=== PATIENT | male | born 1950 | race Caucasian/White ===

== ENCOUNTER → 2017-01-01 | Outpatient (CLI) | payer BC ==
[~2017-01-01] MED LIST: ASPCH81X PO
--- NOTE | 2017-01-02 06:05 | PAP/PSG TECHNICIAN REPORT ---
[facility] [address] Therapeutic Assistant Polysomnogram Report Study name: None Report date: 01/02/2017 Study date: 01/01/2017 Referring Physician: Sharmaine Melgar M.D. Name: CLARARICKYGISSELLE CEDRIC RAMIREZ Interpreting Physician: Moon Melgar M.D. Date of : 1950 Therapeutic Assistant: Ángela Mei RPSGT. Sex: Male Age: 66 StudyType: PSG Weight: 200 lbs Height: 66 years, Height 5' 8" Neck Circum:17inches BMI: 30.41 Medications: Lipitor 80mg, Toprol Xl 100mg, Nitrostat 0.4mg, Cozaar 25mg, ASA 81mg Patient History Study started on room air with no ETCO2 monitoring in room #6. 66 yr old male here tonight for a possible split psg He has a history od ASCAD, s/p cleft lip and palate and he is a heavy snorer. His ESS=6/24.Neck circ=17inches. Parameters Monitored NPSG: E1-M2, E2-M1, Fp1-M2, Fp2-M1, F3-M2, F4-M2, F4-M1, C3-M2, C4-M2, C4-M1, O1-M2, O2-M2, O2-M1, T3-M2, T4-M1, P3-M2, P4-M1, CHIN1, CHIN2, HR, EKG, Legs, PFLOW, SNOR, FLOW, CFLOW, Tidal Volume, THOR, ABDO, SpO2, PLTH, CPRESS, ETCO2 Wave, ETCO2, pH Sleep Architecture Sleep Stages Time at Lights Off 10:39:55 PM STAGES Time (min.) TST (%) Time at Lights On 5:48:55 AM Wake 85.5 -- Total Recording Time (TRT) 429.50 min. N1 29.5 9 Total Sleep Period (TSP) 398.0 min. N2 185.5 54 Total Sleep Time (TST) 343.5min. N3 47.0 14 Awake Time 86.0 min. REM 81.5 24 Wake after Sleep Onset 62.0 min. Sleep Efficiency (SE) 80 % Sleep Onset Latency (DEVORAH) 23.5 min. Number of Stage 1 Shifts None Awakenings 26 Stage Changes 101 Number of REM periods 12 REM 81.5 24 REM Latency 63.0 min. NREM 262.0 76 Body Position Analysis Supine Right Left Side Prone Vertical Total Sleep Time (min.) 67.4 284.0 0.0 284.00 42.3 0.0 Total Sleep Time (%) 8% 83% 0% 83 10% N/A% Total Sleep Time REM (min.) 0.0 81.5 0.0 None 0.0 0.0 Total Sleep Time NREM (min.) 26.0 202.5 0.0 None 33.5 0.0 Intermittent Wake (min.) 41.4 35.3 0.0 None 8.8 0.0 Total Sleep Period (%) 11% None None None None None Arousals Myoclonus (PLM) * Events Count Index Events Count Index Spontaneous 12 2 Events Awake (PLMW) 54 37.9 Respiratory 18 3.5 Events Asleep w/ Arousal (PLMA) 15 2.6 PLM 14 3 Events Asleep w/o Arousal (PLMS) 658 114.9 Snoring 13 2 Total Asleep 673 117.6 Total 56 10 Total 727 102 Respiratory Analysis * CA OA MA CH H RERA Total Count 3 5 7 0 25 0 40 Index 0.5 0.9 1.2 0 4.4 0 7.0 Mean Duration 15.6 15.9 17.3 0.00 19.7 0.0 18.5 Longest Duration 17.5 17.9 22.3 0.00 22.3 0.0 58.4 Respiratory Event Summary Total Supine ~Supine Right Left Prone REM NREM Apneas Count 15 13 2 2 N/A 0 1 14 Index 2.6 30 0 0.4 N/A 0 1 3 Hypopneas (4% Desat) Count 25 22 3 3 N/A 0 3 22 Index 4.4 50.8 1 0.6 N/A 0.0 2.2 5.0 Apneas & All Hypopneas Count 40 35 5 5 N/A 0 4 36 Index 7.0 81 1 1 N/A 0 2.9 8.2 Respiratory Events (Scabbler+All Hyp+RERA) Count 40 35 5 5 N/A 0 4 36 Index 7.0 81 1 1.1 N/A 0.0 2.9 8.2 Respiratory Related Arousal Count 18 35 1 1 N/A 0 1 19 Index 3.5 44 0 0 N/A 0 1 4 Snoring Analysis Supine Right Left Prone REM NREM Total Snore duration 20.5 min Snores count 68 917 N/A 12 396 601 997 Snore mean duration 1.2 Sec Snores index 157 194 N/A 21 291.5 137.6 174.1 TST with snoring (%) 6.0% Desaturation Event Summary: Minimum %SpO2 Event Count Mean/Min/Max Duration(sec.) Desaturation Index % Time In Bed > 90 31 20.6 / 9.0 / 60.0 7.6 57.0 86 - 90 23 15.6 / 9.0 / 26.0 7.5 42.9 81 - 85 0 N/A 0.0 0.0 76 - 80 0 N/A 0.0 0.0 71 - 75 0 N/A 0.0 0.0 66 - 70 0 N/A 0.0 0.0 61 - 65 0 N/A 0.0 0.0 56 - 60 0 N/A 0.0 0.0 51 - 55 0 N/A 0.0 0.0 < 50 0 N/A 0.0 0.0 Total REM NREM Awake <50% 0.0 min. 0.0 min. 0.0 min. 0.0 min. 51 - 60% 0.0 min. 0.0 min. 0.0 min. 0.0 min. 61 - 70% 0.0 min. 0.0 min. 0.0 min. 0.0 min. 71 - 80% 0.0 min. 0.0 min. 0.0 min. 0.0 min. 81 - 90% 184.1 min. 48.8 min. 108.2 min. 27.2 min. 91 - 100% 244.3 min. 32.7 min. 153.7 min. 57.8 min. Average 91 90 91 91 Minimum SpO2 84 87 84 86 Desaturation Event Index 4.5 1.5 5.7 3.5 # Desat. Events below 89% 28 0 25 3 Time(%) with Saturation below 89% 5.4 2.0 3.0 0.4 Time(min.) with Saturation below 89% 23.3 8.4 13.0 1.9 Time (mins) REM (mins) NREM (mins) % of TST SpO2 Below 90% 27 2 N25 21.8 SpO2 Below 88% 6 0 0 1 Heart Rate Analysis Min (bpm) Max (bpm) Average (bpm) Awake 57 92 66 NREM 60 77 67 REM 65 77 70 Overall 60 77 68 Supplemental O2 Values Minimum O2 level: None Value Start Time End Time Therapeutic Assistant Comments Mr. Patton slept in the right, supine and prone positions. No cardiac arrhythmia noted. PLM's noted. No bruxism noted. Snoring was noted and scored as a 2 on a scale of 1 through 5. (0=no snoring, 5=snoring loud enough to be heard through a closed door or down the [address] way) He did not use the restroom during the night. He stated that he slept a little worse than when at home. The final report will be interpreted and signed by a sleep physician. The completed physician report will then be placed in the patient medical record. Therapy (cm H2O) 0 TIB (min.) 429.0 TST (min.) 343.5 Sleep Onset (min.) 23.5 REM Onset From Sleep (min.) 63.0 Sleep Efficiency % 80 Wakefulness (%) 20 Wakefulness (min.) 86.0 NREM 1 (%) 9 NREM 1 (min.) 29.5 NREM 2 (%) 54 NREM 2 (min.) 185.5 NREM 3 (%) 14 NREM 3 (min.) 47.0 REM (%) 24 REM (min.) 81.5 # Arousals 56 Arousal Index 10 # Snore 997 Snore Index 174.1 AHI 7.0 AHI Supine 81 AHI Non-Supine 1 NREM AHI 8.2 REM AHI 2.9 RDI 7.0 # Obstructive Apnea 5 # Central Apnea 3 # Mixed Apnea 7 # Hypopneas 25 RERAs 0 Total Respiratory Events 44 Time Below SpO2 89% (min.) 21.4 Mean NREM SpO2 (%) 91 Mean REM SpO2 (%) 90 Mean Sleep SpO2 (%) 91 Min NREM SpO2 (%) 84 Min REM SpO2 (%) 87 Position Supine (min.) 67.4 Position Non-supine (min.) 317.5 LM Index Sleep 117.6 LM Index NREM 141.5 LM Index REM 40.5 Mean Heart Rate (bpm) 68 Min Heart Rate (bpm) 60
--- NOTE | 2017-01-13 10:27 | POLYSOMNOGRAPH REPORT ---
REFERRING PERSON: Dr. Pepe Melgar. BAR CATCHER: Ángela Mei. Mr. Patton is a 66-year-old male, who is sent for a possible split night sleep study. He has a history of atherosclerotic heart disease and previous cleft lip and palate repair. He is a heavy snorer. His [place] sleepiness scale score on the evening of this study is 6. BMI is 30.41. Following the technical and digital specifications of the [place] [employer] (AASM) a standard diagnostic polysomnogram was performed monitoring EEG, EOG, EMG (chin and leg deviations), oxygen saturation, body position, digital video, respiratory effort and airflow. The sleep Stage and event scoring was based on the AASM Manual for the Scoring of Sleep and Associated Events 2007 edition. Apneas are defined as a drop in the peak thermal sensor excursion by >90% of baseline for at least 10 seconds. Hypopneas were scored using the 4% oxygen desaturation rule ([employer]A-[employer]) and a decrease in the nasal pressure excursions by >30% of baseline for at least 10 seconds. Respiratory effort-related arousal (RERA's) is defined as a sequence of breaths lasting at least 10 seconds characterized by increasing respiratory effort or flattening of the nasal pressure waveform leading to an arousal from sleep when the sequence of breaths does not meet criteria for an apnea or hypopnea. Apnea Hypopnea index (AHI) is defined as the number of apneas and hypopneas occurring in an hour of sleep. Respiratory disturbance index (RDI) is defined as the number of apneas, hypopneas, and RERA's occurring in an hour of sleep. Mr. Patton's total sleep period time was 398 minutes. Total sleep time was 343.5 minutes. Sleep efficiency was 80%. Latency to sleep onset was 23.5 minutes with wake after sleep onset of 62 minutes. Total non-REM sleep time was 262 minutes. He spent 9% of that time in N1 sleep, 54% in N2 sleep and 14% in N3 sleep. REM latency was 63 minutes. Total REM sleep time was 81.5 minutes or 24% of total sleep time. There were 56 cortical arousals from sleep. Twelve of these arousals were spontaneous, 18 were due to respiratory events, 14 were due to periodic limb movements of sleep and 13 were due to snoring. 673 periodic limb movements of sleep were noted. Limb movement index was 117.6. Limb movement with arousal index, however, was 2.6. There were 3 central, 5 obstructive, and 7 mixed apneas on this test. There were 25 hypopnea and no RERA. Apnea-hypopnea index was 7, supine AHI was 81, non-supine AHI was 1. This was very positional. 997 snoring events were recorded. Total sleep time with snoring was 6%. Mean saturation was 91% with desaturations to 84%. Saturations were less than 89% for 23.3 minutes of recorded time. There was no cardiac ectopy noted on this study. Heart rates ranged from a low of 60 beats per minute to a high of 77 beats per minute. IMPRESSION AND PLAN: A 66-year-old male with previous cleft lip and palate repair, and a history of atherosclerotic heart disease with mild sleep apnea that is very positional on this test. This is associated with nocturnal hypoxemia. 1. This patient may benefit from positive airway pressure therapy. He could be started on auto titrating CPAP with pressures of 5-15 cm. A download reviewed from his machine in 1 month, both to check compliance as well as AHI and further pressure adjustments can occur at that time. Once on optimal pressure, an overnight oximetry could be performed to ensure hypoxemia resolves with CPAP therapy alone. 2. Alternatively, this patient could try positional therapy as when he is on his back, he had a number of respiratory events, but when he slept non-supine, he did not.
== END | disposition home or self-care (01) ==
LOC: C.NEUR 20:00
PROVIDERS: ATTEND Family Medicine
DX: R06.83 Snoring (principal); G47.10 Hypersomnia, unspecified

== ENCOUNTER → 2017-11-14 | Day surgery (SDC) | payer BC ==
[~2017-11-14] VITALS: Ht 170.2 cm; Wt 89.1 kg
[~2017-11-14] MED LIST changes: +ATOR-26 PO; +CZR25 PO; +LIDOCAINE HCL 2% 2 ML VIAL (20MG/ML) ONE; +METO100T44 PO; +NTRGSL/4 UT; +PROPOFOL IV EMULSION 10 MG/ML 20 ML VIAL IV ONE; +SODIUM CHLORIDE 0.9% 500ML 500 ML IV ONE
[2017-11-14 08:07] VITALS: Ht 170.2 cm; Wt 89.1 kg
--- NOTE | 2017-11-14 08:51 | Endo History and Physical ---
History & Physical Date of Service: Nov 14, 2017. Chief Complaint: HX OF POLYPS Referring Physician: DR. AYOUB History of Present Illness Patient with hx of colon polyps. 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) Hx Thoracic Surgery: No Hx Orthopedic: No Hx Urinary Tract Surgery: No Family History None Social History Smoking Status: Former Smoker Hx Substance Use: No Hx Alcohol Use: Yes (2 BEERS/DAILY) Allergies Coded Allergies: Lisinopril (Verified Adverse Reaction, Unknown, DRY COUGH, 11/06/17) Current Medications Reported Home Medications Medications Dose Route/Sig Max Daily Dose Days Date Category Nitrostat (Nitroglycerin) 0.4 Mg Tab 0.4 Mg UT PRN 11/06/17 Reported Losartan Potassium 25 Mg Tab 25 Mg PO QAM 11/06/17 Reported Lipitor (Atorvastatin Calcium) 80 Mg Tab 80 Mg PO QAM 11/06/17 Reported Toprol-Xl (Metoprolol Succinate) 100 Mg Tabcr 100 Mg PO QAM 11/06/17 Reported Aspirin Chewable (Aspirin) 81 Mg Chew 81 Mg PO QAM 04/26/12 Reported Vital Signs Weight (Kilograms): 89.09 Height (Feet): 5 Height (Inches): 7 Date Time Temp Pulse Resp B/P (MAP) Pulse Ox O2 Delivery O2 Flow Rate FiO2 11/14/17 08:04 36.7 75 20 136/75 (95) 97 Room Air Physical Exam General Appearance: no apparent distress Respiratory/Chest: Auscultation: breath sounds normal Cardiovascular: Heart Auscultation: RRR Abdomen: Inspection & Palpation: soft Liver: non-tender Assessment and Plan stable for colonoscopy
--- NOTE | 2017-11-14 09:27 | Discharge Instructions ---
Endoscopy Patient Instructions Date / Procedure(s) Performed Nov 14, 2017. Colonoscopy Allergy Information Coded Allergies: Lisinopril (Verified Adverse Reaction, Unknown, DRY COUGH, 11/06/17) Discharge Date / Findings Nov 14, 2017. small colon polyps removed Provider Instructions Activity Restrictions - No exercising or heavy lifting for 24 hours. - Do not drink alcohol the day of the procedure. - Do not drive a car or operate machinery until the day after the procedure. - Do not make any important decisions or sign important papers in 24 hours after the procedure. Following Day: - Return to full activity which may include returning to work/school. Diet Start your diet with liquids and light foods (jello, soup, juice, toast). Then eat your usual diet if not nauseated. Treatment For Common After Affects For mild abdominal pain, bloating, or excessive gas: - Rest - Eat lightly - Lie on right side Follow-Up Information Follow-up with DR. AYOUB as scheduled Anesthesia Information What You Should Know You have had a procedure that required some medicine to reduce anxiety and discomfort. This treatment is called moderate sedation. After receiving the treatment, you may be sleepy, but you will be able to breathe on your own. The effects of the treatment may last for several hours. Follow these instructions along with Activity/Diet recommendations noted above: * Do NOT do anything where dizziness or clumsiness would be dangerous. * Rest quietly at home today, then you can be up and about tomorrow. * Have a responsible person stay with you the rest of today. * You may have had an I.V. today. If so, you may take the dressing off later today. Recommendations Call your doctor if: * Trouble breathing * Continuous vomiting for more than 24 hours * Temperature above 101 degrees * Severe abdominal pain or bloating * Pain not relieved by pain medicine ordered * There is increased drainage or redness from any incision * A large amount of rectal bleeding greater than 2-3 tablespoons. (If you had a polyp/s removed or have hemorrhoids, a small amount of blood - from the rectum is to be expected.) * You have any unanswered questions or concerns. IN THE EVENT OF A SERIOUS EMERGENCY, GO TO THE NEAREST EMERGENCY ROOM Your discharge instructions were prepared by provider Carlos Marcelino. Patient Instructions Signature Page Kale Patton Patient (or Guardian) Signature/Date: I have read and understand the instructions given to me by my caregivers. Caregiver/RN/Doctor Signature/Date: The above-named patient and/or guardian has received patient instructions on this date. + Original Patient Signature Page (only) stays with chart. Please make copy for patient.
--- NOTE | 2017-11-14 09:47 | Anesthesiology Progress Note ---
Anesthesia Post Op Note Date & Time Nov 14, 2017 at 09:47 Vital Signs Pain Intensity: 0 Vital Signs Past 12 Hours Date Time Temp Pulse Resp B/P (MAP) Pulse Ox O2 Delivery O2 Flow Rate FiO2 11/14/17 09:36 66 18 124/68 (86) 98 Room Air 11/14/17 09:21 65 16 96/57 (70) 96 Room Air 11/14/17 08:04 36.7 75 20 136/75 (95) 97 Room Air Notes Mental Status: alert / awake / arousable, participated in evaluation Pt Amnestic to Procedure: Yes Nausea / Vomiting: adequately controlled Pain: adequately controlled Airway Patency, RR, SpO2: stable & adequate BP & HR: stable & adequate Hydration State: stable & adequate Anesthetic Complications: no major complications apparent
[2017-11-14 09:51] VITALS: BP 126/75; PULSE 62; O2SAT 97
--- NOTE | 2017-11-14 10:29 | GI REPORT ---
Procedure Date: 11/14/2017 8:18 AM Procedure: Colonoscopy Indications: Personal history of colonic polyps Medicines: See the Anesthesia note for documentation of the administered medications Complications: No immediate complications. Estimated Blood Loss: Estimated blood loss was minimal. Procedure: Pre-Anesthesia Assessment: - Prior to the procedure, a History and Physical was performed, and patient medications, allergies and sensitivities were reviewed. The patient's tolerance of previous anesthesia was reviewed. - The risks and benefits of the procedure and the sedation options and risks were discussed with the patient. All questions were answered and informed consent was obtained. - Patient identification and proposed procedure were verified prior to the procedure by the physician and the nurse. The procedure was verified in the pre-procedure area. - Pre-procedure physical examination revealed no contraindications to sedation. - After reviewing the risks and benefits, the patient was deemed in satisfactory condition to undergo the procedure. After I obtained informed consent, the scope was passed under direct vision. Throughout the procedure, the patient's blood pressure, pulse, and oxygen saturations were monitored continuously. The scope was introduced through the anus and advanced to the terminal ileum, with identification of the appendiceal orifice and IC valve. The colonoscopy was performed without difficulty. The patient tolerated the procedure well. The quality of the bowel preparation was fair. Findings: The perianal and digital rectal examinations were normal. The terminal ileum appeared normal. A 5 mm polyp was found at 70 cm proximal to the anus. The polyp was semi-sessile. The polyp was removed with a cold snare. Resection and retrieval were complete. Verification of patient identification for the specimen was done by the physician and nurse using the patient's name and medical record number. Estimated blood loss was minimal. Two sessile polyps were found at 20 cm proximal to the anus. The polyps were small in size. These polyps were removed with a cold snare. Resection and retrieval were complete. Verification of patient identification for the specimen was done by the physician and nurse using the patient's name and medical record number. Estimated blood loss was minimal. Multiple small-mouthed diverticula were found in the sigmoid colon. No additional abnormalities were found on retroflexion. Impression: - Preparation of the colon was fair. - The examined portion of the ileum was normal. - One 5 mm polyp at 70 cm proximal to the anus, removed with a cold snare. Resected and retrieved. - Two small polyps at 20 cm proximal to the anus, removed with a cold snare. Resected and retrieved. - Diverticulosis in the sigmoid colon. Recommendation: - Await pathology results. - Discharge patient to home. Carlos Marcelino M.D. Carlos Marcelino MD 11/14/2017 10:28:36 AM This report has been signed electronically. Note Initiated On: 11/14/2017 8:18 AM I attest to the content of the Intraoperative Record and orders documented therein, exceptions below
== END | disposition home or self-care (01) ==
LOC: C.GI 07:41
PROVIDERS: ATTEND Internal Medicine Gastroenterology
DX: Z86.010 Personal history of colon polyps (principal); D12.6 Benign neoplasm of colon, unspecified; K63.5 Polyp of colon; K57.30 Diverticulosis of large intestine without perforation or abscess without bleeding; I25.10 Atherosclerotic heart disease of native coronary artery without angina pectoris; I10 Essential (primary) hypertension; Z95.1 Presence of aortocoronary bypass graft; Z98.890 Other specified postprocedural states; Z85.828 Personal history of other malignant neoplasm of skin; Z88.8 Allergy status to other drugs, medicaments and biological substances; Z79.82 Long term (current) use of aspirin; Z79.899 Other long term (current) drug therapy

== ENCOUNTER 2022-11-06 07:38 | Observation (INO) ==
[2022-11-06] MEDS ORDERED: NITROGLYCERIN SL 0.4 MG/TAB TAB SL STA ×2 (07:54→09:00)
[2022-11-06] MEDS ORDERED: ASPIRIN CHEW 324 MG PO STA (07:54)
--- NOTE | 2022-11-06 08:00 | Emergency Department Note ---
Impression & Plan Chest pain, Leukocytosis, Hypoxia ED Provider Note NAME: CEDRIC FUNES AGE: 72 SEX: M : 1950 ARRIVES VIA: Walk-In INFORMANT: Patient ED PROVIDER(S): Neeraj Mtz DO CHIEF COMPLAINT: chest pain HPI: Patient is a 72-year-old male who presents the ER for chest pain. He describes it as a dull ache on his left chest. Feels like his previous heart attack where he needed a bypass x2. He does have a history of hypertension and hyperlipidemia. Denies any belly pain, nausea, vomiting, or diarrhea. He did take some nitro and the pain got significantly better. He also took 81 mg of aspirin. Notes that some very faint nail his pain. Denies any arm or jaw pain. No other exacerbating or remitting factors. He has not had any stress test or cardiac cath for at least 10 years. PAST MEDICAL HISTORY:See Below PAST SURGICAL HISTORY:See Below FAMILY HISTORY:See Below SOCIAL HISTORY:See Below HOME MEDICATIONS:See Below ALLERGIES:See Below VITALS:See Below PHYSICAL EXAMINATION: GENERAL: Sitting up in bed, alert, well appearing, well nourished, no distress, non-toxic EYE EXAM: normal conjunctiva. OROPHARYNX: no exudate, no erythema, lips, buccal mucosa, and tongue normal and mucous membranes are moist NECK: supple, no nuchal rigidity, no adenopathy, non-tender LUNGS: Clear to auscultation. Normal chest wall mechanics HEART: no murmurs, S1 normal and S2 normal ABDOMEN: abdomen soft, non-tender, normo-active bowel sounds, no masses, no rebound or guarding. UPPER EXTREMITIES: upper extremities are grossly normal. LOWER EXTREMITIES: No pitting edema. Calf cervical bilateral NEURO EXAM: Normal sensorium, cranial nerves II-XII grossly intact, normal speech, no gross weakness of arms, no gross weakness of legs. MEDICAL DECISION MAKING: Patient is a 72-year-old male who presents ER for above-stated complaint. External records were reviewed and showed CAD status post CABG with MCCORMACK to LAD and SVG to PDA performed April 2012. IV was established blood work was obtained. Labs show leukocytosis 16,000. No significant anemia. BMP with LFTs bilirubin was remarkable for T. bili 1.5. Lipase and Pro-Aubrey were normal. COVID-negative. Patient was intermittently hypoxic with a pulse ox dipping down to 88. With this in the chest pain CT angio was obtained and showed no PEs but patchy nonspecific pneumonitis. Patient was updated bedside discussed with the hospitalist admitted for further work-up. Pain did improve significantly with nitro. He was given aspirin. No significant change in EKG. Triage Nursing notes reviewed. Limited review of prior medical records performed Vital Signs: reviewed and remarkable for HTN Differential diagnosis: Cardiac ischemia, aortic dissection, pulmonary embolism, pneumothorax, pneumonia, pericarditis, myocarditis, esophageal rupture, GERD, cholecystitis, pancreatitis, musculoskeletal, as well as other pathologies. ER treatment provided: See below Diagnostics interpreted by me include EKG and cardiac monitoring as listed below: -Cardiac Monitoring: An order was placed for continuous cardiac monitoring. The monitor shows a rate of 60 with sinus rhythm. -ECG: Sinus rhythm rate of 60 Normal axis No PVCs T wave inversion and ST depressions in V2 and V3 QTc 398 -Laboratory studies:Interpreted by me as stated above in MDM and shown below. Imaging studies: Xrays: As interpreted by me: Portable AP upright 1 view of the chest shows no pneumonia CTs show: none Consultation(s): Discussed with the hospitalist for further evaluation management and treatment Procedures:none Critical Care: None Past Med/Surg History Medical History History of skin cancer Hx of colonic polyps Hyperlipidemia Hypertension Osteoarthritis Surgical History H/O cleft lip repair multiple (as a child) H/O hernia repair as a child H/O inguinal hernia repair H/O local excision of skin lesion History of cardiac cath (~2011) [facility] - transferred to [facility] History of colonoscopy History of repair of congenital cleft palate multiple (as a child) History of right cataract surgery Hx of CABG x2 vessels in 2011 at [facility]. follows with Dr. Brambila (annually) Family History Other No family history of adverse response to anesthesia Social History Smoking Status: Former smoker Second Hand Exposure: No; Hx Alcohol Use: Yes Alcohol type: wine Hx Substance Use: No Preferred Language: Greek Communication Ability: Effective Driver Engineer Required: No Beliefs That Will Affect Care: None Current Living Situation: Spouse and Family Feels Safe at Home: Yes Assistive Devices: Denture - Upper and Glasses Allergies Allergies Allergy/AdvReac Type Severity Reaction Status Date / Time lisinopril AdvReac Unknown DRY COUGH Verified 12/06/21 06:12 Home Meds Home Medications Medication Instructions Recorded Confirmed aspirin 81 mg tablet 81 mg PO QAM 11/20/21 12/06/21 atorvastatin 80 mg tablet 80 mg PO QAM 11/20/21 12/06/21 losartan 25 mg tablet 25 mg PO QAM 11/20/21 12/06/21 metoprolol succinate 100 mg 100 mg PO QAM 11/20/21 12/06/21 tablet,extended release 24 hr multivitamin 1 tab PO QAM 11/20/21 12/06/21 Results & Data (ED) Vital Signs Vital Signs - 24 hr 11/06/22 07:41 11/06/22 08:00 11/06/22 08:01 Temperature 36.8 C Temperature Source Temporal Artery Scan Pulse Rate 60 56 L 56 L Pulse Rhythm Regular Regular Respiratory Rate 20 22 22 Respiratory Effort / Characteristics Non-Labored Spontaneous Respiratory Depth Normal Blood Pressure 154/74 H 137/71 Blood Pressure Mean 100 93 Pulse Oximetry 93 94 94 Oxygen Delivery Method Room Air Room Air Sepsis Recent Fever Within 48 Hours No Sepsis New/Unexplained Change in Mental Status No Sepsis Action Taken by Nursing No Action Required 11/06/22 08:10 11/06/22 08:09 11/06/22 08:10 Temperature Temperature Source Pulse Rate 63 63 62 Pulse Rhythm Respiratory Rate 17 18 Respiratory Effort / Characteristics Respiratory Depth Blood Pressure Blood Pressure Mean Pulse Oximetry 91 91 Oxygen Delivery Method Room Air Room Air Sepsis Recent Fever Within 48 Hours Sepsis New/Unexplained Change in Mental Status Sepsis Action Taken by Nursing 11/06/22 08:15 11/06/22 08:15 11/06/22 08:20 Temperature Temperature Source Pulse Rate 57 L 56 L Pulse Rhythm Respiratory Rate 22 19 Respiratory Effort / Characteristics Respiratory Depth Blood Pressure 119/67 Blood Pressure Mean 84 Pulse Oximetry 92 92 Oxygen Delivery Method Room Air Room Air Sepsis Recent Fever Within 48 Hours Sepsis New/Unexplained Change in Mental Status Sepsis Action Taken by Nursing 11/06/22 08:30 11/06/22 08:30 11/06/22 08:40 Temperature Temperature Source Pulse Rate 56 L 55 L Pulse Rhythm Respiratory Rate 16 16 Respiratory Effort / Characteristics Respiratory Depth Blood Pressure 134/66 Blood Pressure Mean 88 Pulse Oximetry 92 93 Oxygen Delivery Method Room Air Room Air Sepsis Recent Fever Within 48 Hours Sepsis New/Unexplained Change in Mental Status Sepsis Action Taken by Nursing 11/06/22 08:45 11/06/22 08:45 11/06/22 08:50 Temperature Temperature Source Pulse Rate 53 L 55 L Pulse Rhythm Respiratory Rate 16 17 Respiratory Effort / Characteristics Respiratory Depth Blood Pressure 108/70 Blood Pressure Mean 82 Pulse Oximetry 92 94 Oxygen Delivery Method Room Air Room Air Sepsis Recent Fever Within 48 Hours Sepsis New/Unexplained Change in Mental Status Sepsis Action Taken by Nursing 11/06/22 09:00 11/06/22 09:00 11/06/22 09:15 Temperature Temperature Source Pulse Rate 54 L 59 L Pulse Rhythm Respiratory Rate 14 17 Respiratory Effort / Characteristics Respiratory Depth Blood Pressure 115/58 L Blood Pressure Mean 77 Pulse Oximetry 93 91 Oxygen Delivery Method Room Air Room Air Sepsis Recent Fever Within 48 Hours Sepsis New/Unexplained Change in Mental Status Sepsis Action Taken by Nursing 11/06/22 09:15 11/06/22 09:30 11/06/22 09:30 Temperature Temperature Source Pulse Rate 57 L Pulse Rhythm Respiratory Rate 18 Respiratory Effort / Characteristics Respiratory Depth Blood Pressure 116/61 108/60 Blood Pressure Mean 79 76 Pulse Oximetry 94 Oxygen Delivery Method Room Air Sepsis Recent Fever Within 48 Hours Sepsis New/Unexplained Change in Mental Status Sepsis Action Taken by Nursing 11/06/22 09:45 11/06/22 09:45 11/06/22 10:00 Temperature Temperature Source Pulse Rate 54 L Pulse Rhythm Respiratory Rate 16 Respiratory Effort / Characteristics Respiratory Depth Blood Pressure 110/59 L 135/64 Blood Pressure Mean 76 87 Pulse Oximetry 92 Oxygen Delivery Method Room Air Sepsis Recent Fever Within 48 Hours Sepsis New/Unexplained Change in Mental Status Sepsis Action Taken by Nursing 11/06/22 10:00 Temperature Temperature Source Pulse Rate 56 L Pulse Rhythm Respiratory Rate 18 Respiratory Effort / Characteristics Respiratory Depth Blood Pressure Blood Pressure Mean Pulse Oximetry 95 Oxygen Delivery Method Room Air Sepsis Recent Fever Within 48 Hours Sepsis New/Unexplained Change in Mental Status Sepsis Action Taken by Nursing Laboratory Data 11/06/22 07:53 11/06/22 07:53 Lab Results 11/06/22 11/06/22 11/06/22 Range/Units 07:53 07:53 07:54 WBC 16.10 H (4.8-10.8) K/ul RBC 5.76 (4.70-6.10) M/uL Hgb 17.0 (14.0-18.0) g/dl Hct 49.5 (42.0-52.0) % MCV 85.9 (80.0-100.0) fL MCH 29.5 (25.0-34.0) pg MCHC 34.3 (32.0-36.0) g/dL RDW Std Deviation 42.4 (36.4-46.3) fL RDW Coeff of [place] 13.5 (11.5-14.5) % Plt Count 151 (130-400) K/uL MPV 10.0 (9.4-12.4) fL Immature Gran % (Auto) 0.4 % Neut % (Auto) 43.5 % Lymph % (Auto) 49.3 % Towns % (Auto) 4.5 % Eos % (Auto) 1.9 % Baso % (Auto) 0.4 % Neut # (Auto) 7.00 H (1.40-6.50) K/uL Lymph # (Auto) 7.94 H (1.2-3.4) K/uL Towns # (Auto) 0.72 H (0.11-0.59) K/uL Eos # (Auto) 0.31 (0-0.50) K/uL Baso # (Auto) 0.07 (0-0.2) K/uL Immature Gran # (Auto) 0.06 (0.01-0.20) K/uL Sodium 137 (136-145) mmol/L Potassium 4.3 (3.5-5.1) mmol/L Chloride 104 (98-107) mmol/L Carbon Dioxide 26 (21-32) mmol/L Anion Gap 7 (3-11) BUN 14 (6-23) mg/dl Creatinine 1.07 (0.6-1.4) mg/dl Est Cr Clr Drug Dosing 63.1 ml/min Est GFR ( Amer) 79.4 ml/min Est GFR (Non-Af Amer) 68.5 ml/min BUN/Creatinine Ratio 13.1 (10-20) Glucose 114 H (70-99(Fasting)) mg/dl Calcium 9.0 (8.6-10.3) mg/dl Total Bilirubin 1.5 H (0.2-1.0) mg/dl AST 27 (13-39) U/L ALT 46 (7-52) U/L Alkaline Phosphatase 87 (34-104) U/L Troponin I High Sens 4.1 (0-20) pg/ml Total Protein 6.7 (6.0-8.3) gm/dl Albumin 4.4 (3.4-5.0) gm/dl Globulin 2.3 L (2.5-4.0) gm/dl Albumin/Globulin Ratio 1.9 (0.9-2) Lipase 30 (11-82) U/L Procalcitonin < 0.05 (0-0.5) ng/ml Administered Medications Discontinued Medications Aspirin (Aspirin Chew 324 Mg) 243 mg PO NOW STA Stop: 11/06/22 07:55 Last Admin: 11/06/22 08:01 Dose: 243 mg Documented By: CHRISTIANA Ioversol (Optiray 320 500ml) 109 ml IV ONCE ONE Stop: 11/06/22 10:57 Last Admin: 11/06/22 10:56 Dose: 109 ml Documented By: DORA Nitroglycerin (Nitroglycerin Sl 0.4 Mg/Tab Tab) 0.4 mg SL NOW STA Stop: 11/06/22 07:55 Last Admin: 11/06/22 08:02 Dose: 0.4 mg Documented By: CHRISTIANA Nitroglycerin (Nitroglycerin Sl 0.4 Mg/Tab Tab) 0.4 mg SL NOW STA Stop: 11/06/22 09:01 Last Admin: 11/06/22 09:05 Dose: 0.4 mg Documented By: CHRISTIANA Imaging Data Radiologist's Impression: Chest X-Ray 11/06/22 07:49 XR chest 1V portable HISTORY: 72 years-old Male Chest pain, nonspecific COMPARISON: 04/26/2012 TECHNIQUE: AP view of the chest FINDINGS: Cardiac silhouette is enlarged. Prior median sternotomy with CABG. Chronic deformity of the right fifth rib which is likely developmental. Perivascular congestion. Mild bibasilar consolidation with probable trace pleural effusions. No pneumothorax. Degenerative changes of the shoulders and spine. IMPRESSION: 1. Cardiomegaly with pulmonary vascular congestion. 2. Probable trace pleural effusions with bibasilar consolidation. Findings may represent a nonspecific infectious or inflammatory pneumonitis. ACT 112: Negative or not required by law. The above report was generated using voice recognition software. It may contain grammatical, syntax or spelling errors. Electronically signed by: Lisandro Graham M.D. 11/06/2022 8:32 AM Chest CTA 11/06/22 09:31 CT angio chest PE protocol CT DOSE: 493.11 mGy.cm HISTORY: 72 years-old Male with hypoxic w/ cp. Acute hypoxia with chest pain TECHNIQUE: Multiple CTA images of the chest were obtained after the intravenous administration of 109 ml Optiray. Coronal and sagittal MIPS were obtained from the axial data set and were submitted for review. All measurements were obtained according to NASCET criteria. A dose lowering technique was utilized adhering to the principles of ALARA. COMPARISON: Chest radiograph of same day and also 04/26/2012 FINDINGS: CTA: Moderate cardiomegaly. No pericardial effusion. Prior median sternotomy with CABG. Extensive calcifications of the coronary arteries. Atherosclerosis of the aorta without aneurysm. There is patency of the imaged great vessels. No pulmonary emboli are identified. CT CHEST: Unremarkable thyroid. Mild mediastinal lymphadenopathy with subcarinal lymph nodes measuring up to 1.3 cm. No pneumothorax or pleural effusion. Mild pulmonary emphysema with bronchial wall thickening. Mild intralobular septal thickening. Patchy mid to lower lung zone prominent distribution of subsegmental groundglass and consolidative opacities. There are no suspicious pulmonary nodules or masses identified. 8 mm fissural nodule of the right middle lobe on image 108 suggestive of a benign lymph node. Mild hepatosplenomegaly with hepatic steatosis. The imaged spleen measures up to 13.3 cm. Unremarkable soft tissues. No acute fracture. Chronic deformity of the right anterolateral fifth rib. IMPRESSION: 1. Cardiomegaly without pulmonary emboli identified. 2. Emphysema with bronchitis and mild bibasilar mucous plugging. 3. Patchy bibasilar predominant opacities are compatible with a nonspecific infectious or inflammatory pneumonitis. 4. Mild mediastinal lymphadenopathy, likely reactive. 5. Hepatosplenomegaly with hepatic steatosis. ACT 112: Negative or not required by law. The above report was generated using voice recognition software. It may contain grammatical, syntax or spelling errors. Electronically signed by: Lisandro Graham M.D. 11/06/2022 11:13 AM Discharge Plan Visit Data Chief Complaint: Cardiac Assessment Stated Complaint: CHEST PAIN ED Provider: Neeraj Mtz Discharge Problem: Chest pain, Leukocytosis, Hypoxia Discharge Instructions Interventions: ED Discharge Assessment Last Done: 11/06/22 11:18
[2022-11-06 08:14] LABS: Hematocrit (blood only) 49.5 % (42.0-52.0); Mean Corpuscular Hemoglobin 29.5 pg (25.0-34.0); Mean Corpuscular Hgb Conc 34.3 g/dL (32.0-36.0); Mean Corpuscular Volume 85.9 fL (80.0-100.0); Platelet Count 151 K/uL (130-400); RDW Coefficient of Variation 13.5 % (11.5-14.5); RDW Standard Deviation 42.4 fL (36.4-46.3); Red Blood Count 5.76 M/uL (4.70-6.10)
--- NOTE | 2022-11-06 08:33 | XRay Report ---
XR chest 1V portable HISTORY: 72 years-old Male Chest pain, nonspecific COMPARISON: 04/26/2012 TECHNIQUE: AP view of the chest FINDINGS: Cardiac silhouette is enlarged. Prior median sternotomy with CABG. Chronic deformity of the right fif th rib which is likely developmental. Perivascular congestion. Mild bibasilar consolidation with prob able trace pleural effusions. No pneumothorax. Degenerative changes of the shoulders and spine. IMPRESSION: 1. Cardiomegaly with pulmonary vascular congestion. 2. Probable trace pleural effusions with bibasilar consolidation. Findings may represent a nonspecifi c infectious or inflammatory pneumonitis. ACT 112: Negative or not required by law. The above report was generated using voice recognition software. It may contain grammatical, syntax o r spelling errors. Electronically signed by: Lisandro Graham M.D. 11/06/2022 8:32 AM
[2022-11-06 08:43] LABS: Albumin Globulin Ratio 1.9 (0.9-2); Albumin Level 4.4 gm/dl (3.4-5.0); BUN Creatinine Ratio 13.1 (10-20); Bilirubin,Total 1.5 mg/dl (0.2-1.0); Creatinine Clr Calc Pharmacy 63.1 ml/min; Est GFR (African American) 79.4 ml/min; Est GFR (Non-African American) 68.5 ml/min; Globulin 2.3 gm/dl (2.5-4.0); Potassium 4.3 mmol/L (3.5-5.1); Total Protein 6.7 gm/dl (6.0-8.3); Troponin I High Sensitivity 4.1 pg/ml (0-20)
[2022-11-06 09:03] LABS: Basophils # (auto) 0.07 K/uL (0-0.2); Basophils % (auto) 0.4 %; Eosinophils # (auto) 0.31 K/uL (0-0.50); Eosinophils % (auto) 1.9 %; Immature Granulocytes # (auto) 0.06 K/uL (0.01-0.20); Immature Granulocytes % (auto) 0.4 %; Lymphocytes # (auto) 7.94 K/uL (1.2-3.4); Lymphocytes % (auto) 49.3 %; Monocytes # (auto) 0.72 K/uL (0.11-0.59); Monocytes % (auto) 4.5 %; Neutrophils % (auto) 43.5 %
[2022-11-06] MEDS ORDERED: POLYETHYLENE (MIRALAX) 17 GM PACK PO PRN (10:02)
[2022-11-06] MEDS ORDERED: ONDANSETRON INJ 2 MG/ML 2 ML VIAL IV PRN (10:02)
[2022-11-06] MEDS ORDERED: MAGNESIUM HYDROXIDE SUSP 30 ML UDC PO PRN (10:02)
[2022-11-06] MEDS ORDERED: ALUMINUM/MAGNESIUM SUSP 30 ML UDC PO PRN (10:02)
[2022-11-06] MEDS ORDERED: ACETAMINOPHEN 325 MG TAB PO PRN (10:02)
[2022-11-06] MEDS ORDERED: NITROGLYCERIN SL 0.4 MG/TAB TAB SL PRN (10:02)
--- NOTE | 2022-11-06 10:20 | History & Physical Report ---
Date of Service November 06, 2022 Assessment & Plan (1) Chest pain: Plan Chest pain rule out ACS Patient presents with left-sided chest pain that woke him up from sleep at around 4:30 AM, relieved with sublingual nitro, likens it to the chest pain prior to CABG 10 years ago.. Admitting EKG with sinus rhythm with first-degree heart block, admitting troponin negative. CXR with pulmonary vascular congestion. Echo from outpatient chart review on 12/13/2012 with normal echo and EF of 65 to 69% Telemetry monitoring, trend troponin, cardiology consult. N.p.o. midnight until cardiology eval in AM. EKG with chest pain, sublingual nitro as needed. will get an updated echo. f/u on CTA chest. Leukocytosis: Appears chronic based on outpatient chart review, will get Pro- Aubrey, no signs and symptoms of infection currently. Monitor closely. Other chronic medical conditions: HTN, HLD, CAD --- resume home meds as able DVT prophylaxis: Heparin subcu Full code History of Present Illness Chief Complaint: Chest pain Primary Care Provider: Luther Harrison MD 72-year-old male with PMH of CAD, CABG x2 [2012], HLD, HTN, post bronchitis tussive syndrome, positional sleep apnea, CKD stage III presented to the ED 11/06 with complaint of chest pain. Patient reports waking up from left-sided dull to annoying chest pain, 6/10 at onset, slightly relieved with sublingual nitro taken at home, no association with sweating/dizziness/dry heaves/palpitation, no radiation of chest pain, has been continuous since 4:30 in the morning but has gone down significantly after taking nitro and aspiring including at home and at ED, currently 1/10 at bedside exam, does not report any aggravating factor. Patient does report chronic cough, no new cough. Denies palpitation or headache or dizziness or sore throat or flulike illness or belly pain. Reports no new changes in his bowel or bladder habits. Reports normal appetite. Patient likens this chest pain to the pain prior to getting his CABG in 2011. Patient denies any stroke or blood clot. Patient does have history of skin cancer on left leg which has been surgically removed. Patient reports brother and father with heart problems but not sure what kind. Denies smoking currently, quit 20 years ago, drinks 2 glasses of wine or beer almost every day, last drink was yesterday. Denies any use of recreational or illicit drugs. Full code, POA patient's Francisca Medications reviewed with the patient, he is taken all his a.m. medications today prior to arrival. Plan of care reviewed with the patient and patient's at bedside, they voiced understanding and were agreeable. Allergies Allergy/AdvReac Type Severity Reaction Status Date / Time lisinopril AdvReac Unknown DRY COUGH Verified 12/06/21 06:12 Home Medications Medication Instructions Recorded Confirmed Type aspirin 81 mg tablet 81 mg PO QAM 11/20/21 12/06/21 History atorvastatin 80 mg tablet 80 mg PO QAM 11/20/21 12/06/21 History losartan 25 mg tablet 25 mg PO QAM 11/20/21 12/06/21 History metoprolol succinate 100 mg 100 mg PO QAM 11/20/21 12/06/21 History tablet,extended release 24 hr multivitamin 1 tab PO QAM 11/20/21 12/06/21 History Past Med/Surg History Medical History History of skin cancer Hx of colonic polyps Hyperlipidemia Hypertension Osteoarthritis Surgical History H/O cleft lip repair multiple (as a child) H/O hernia repair as a child H/O inguinal hernia repair H/O local excision of skin lesion History of cardiac cath (~2011) [facility] - transferred to [facility] History of colonoscopy History of repair of congenital cleft palate multiple (as a child) History of right cataract surgery Hx of CABG x2 vessels in 2011 at [facility]. follows with Dr. Brambila (annually) Family History Other No family history of adverse response to anesthesia Social History Smoking Status: Former smoker Second Hand Exposure: No; Hx Alcohol Use: Yes Alcohol type: wine Hx Substance Use: No Preferred Language: Yakut Communication Ability: Effective Matcher Required: No Beliefs That Will Affect Care: None Current Living Situation: Spouse and Family Feels Safe at Home: Yes Assistive Devices: Denture - Upper and Glasses Review of Systems Review of Systems: Negative otherwise mentioned in HPI. Physical Exam Physical Exam: GENERAL: Alert and oriented x3. NAD, on RA. HEENT: No pallor, no icterus. Pupils equal, round and reactive to light. Oral mucosa moist. NECK: No JVD, no neck masses. HEART: S1 and S2 heard. Regular rate and rhythm. No murmur, no gallop. Chest: old healed midsternotomy scar. RESPIRATORY SYSTEM: Normal AP diameter. No accessory muscle use. No wheezing, no crackles. ABDOMEN: Soft, bowel sounds present, nontender, no distention. CENTRAL NERVOUS SYSTEM: No facial droop. Speech is clear. Obeys simple commands. Moves extremities. EXTREMITIES: No edema, no erythema seen. Results & Data Results & Data Vital Signs (Past 12 Hours) Vital Signs Temp Pulse Resp BP Pulse Ox O2 Del Method 11/06/22 09:00 54 L 14 93 Room Air 11/06/22 09:00 115/58 L 11/06/22 08:50 55 L 17 94 Room Air 11/06/22 08:45 108/70 11/06/22 08:45 53 L 16 92 Room Air 11/06/22 08:40 55 L 16 93 Room Air 11/06/22 08:30 56 L 16 92 Room Air 11/06/22 08:30 134/66 11/06/22 08:20 56 L 19 92 Room Air 11/06/22 08:15 119/67 11/06/22 08:15 57 L 22 92 Room Air 11/06/22 08:10 62 18 91 Room Air 11/06/22 08:09 63 17 91 Room Air 11/06/22 08:10 63 11/06/22 08:01 56 L 22 137/71 94 Room Air 11/06/22 08:00 56 L 22 94 Room Air 11/06/22 07:41 36.8 C 60 20 154/74 H 93
[2022-11-06] MEDS ORDERED: OPTIRAY 320 500ml IV ONE (10:56)
--- NOTE | 2022-11-06 11:15 | CT Scan Report ---
CT angio chest PE protocol CT DOSE: 493.11 mGy.cm HISTORY: 72 years-old Male with hypoxic w/ cp. Acute hypoxia with chest pain TECHNIQUE: Multiple CTA images of the chest were obtained after the intravenous administration of 109 ml Optiray. Coronal and sagittal MIPS were obtained from the axial data set and were submitted for review. All measurements were obtained according to NASCET criteria. A dose lowering technique was u tilized adhering to the principles of ALARA. COMPARISON: Chest radiograph of same day and also 04/26/2012 FINDINGS: CTA: Moderate cardiomegaly. No pericardial effusion. Prior median sternotomy with CABG. Extensive calcific ations of the coronary arteries. Atherosclerosis of the aorta without aneurysm. There is patency of t he imaged great vessels. No pulmonary emboli are identified. CT CHEST: Unremarkable thyroid. Mild mediastinal lymphadenopathy with subcarinal lymph nodes measuring up to 1. 3 cm. No pneumothorax or pleural effusion. Mild pulmonary emphysema with bronchial wall thickening. M ild intralobular septal thickening. Patchy mid to lower lung zone prominent distribution of subsegmen crescencio groundglass and consolidative opacities. There are no suspicious pulmonary nodules or masses iden tified. 8 mm fissural nodule of the right middle lobe on image 108 suggestive of a benign lymph node. Mild hepatosplenomegaly with hepatic steatosis. The imaged spleen measures up to 13.3 cm. Unremarkabl e soft tissues. No acute fracture. Chronic deformity of the right anterolateral fifth rib. IMPRESSION: 1. Cardiomegaly without pulmonary emboli identified. 2. Emphysema with bronchitis and mild bibasilar mucous plugging. 3. Patchy bibasilar predominant opacities are compatible with a nonspecific infectious or inflammator y pneumonitis. 4. Mild mediastinal lymphadenopathy, likely reactive. 5. Hepatosplenomegaly with hepatic steatosis. ACT 112: Negative or not required by law. The above report was generated using voice recognition software. It may contain grammatical, syntax o r spelling errors. Electronically signed by: Lisandro Graham M.D. 11/06/2022 11:13 AM
--- NOTE | 2022-11-06 12:20 | Electrocardiogram Report ---
Test Reason : Blood Pressure : / mmHG Vent. Rate : 060 BPM Atrial Rate : 060 BPM P-R Int : 214 ms QRS Dur : 082 ms QT Int : 398 ms P-R-T Axes : 058 024 066 degrees QTc Int : 398 ms Sinus rhythm with 1st degree A-V block Anterior infarct , age undetermined Abnormal ECG When compared with ECG of 28-APR-2012 06:58, Criteria for Anterior infarct is now Present Criteria for Inferior infarct are no longer Present T wave inversion now evident in Anteroseptal leads Confirmed by Gonzales Gant ([id number]) on 11/06/2022 12:19:58 PM Referred By: REFERRED SELF Confirmed By:Gonzales Gant
--- NOTE | 2022-11-06 14:09 | Cardiology Consultation ---
Date of Consultation November 06, 2022 Assessment & Plan (1) Chest pain: (2) Leukocytosis: (3) Bronchitis: (4) Emphysema lung: Plan So far the patient's cardiac markers are negative. I will review his echocardiogram when it is completed. Agree with treating his bronchitis. History of Present Illness Attending Physician: Mary Alice Loja MD History of Present Illness This is a 72-year-old male patient who had coronary artery bypass surgery in 2011. He has done well over the years with occasional sublingual nitroglycerin use. He also has a history of hooping cough when he was a teenager with residual chronic bronchitis and emphysema. A few weeks ago he was treated for bronchitis. He was in his usual state of health. Last evening he had barbecued wings prior to retiring and then woke up in the middle night with chest pain. The chest pain lasted through most of the morning and then he presented to the ED. He did take sublingual nitroglycerin with some relief and received additional sublingual nitroglycerin in the emergency department which seemed to resolve his discomfort. His high-sensitivity troponins are negative. EKG shows no acute changes. CT shows evidence of bronchitis and emphysema. Past medical history: 1.CAD, status post cardiac catheterization at [facility] 04/28/2012, revealing multivessel CAD status post CABG x2 with MCCORMACK to LAD and SVG to the PDA performed by Dr. Barajas on 04/30/2012. a.Occasional sublingual nitroglycerin use 2.Hypertension 3.Dyslipidemia Allergies Allergy/AdvReac Type Severity Reaction Status Date / Time lisinopril AdvReac Unknown DRY COUGH Verified 12/06/21 06:12 Home Medications Medication Instructions Recorded Confirmed Type aspirin 81 mg tablet 81 mg PO QAM 11/20/21 12/06/21 History atorvastatin 80 mg tablet 80 mg PO QAM 11/20/21 12/06/21 History losartan 25 mg tablet 25 mg PO QAM 11/20/21 12/06/21 History metoprolol succinate 100 mg 100 mg PO QAM 11/20/21 12/06/21 History tablet,extended release 24 hr multivitamin 1 tab PO QAM 11/20/21 12/06/21 History Patient History Medical History History of skin cancer Hx of colonic polyps Hyperlipidemia Hypertension Osteoarthritis Surgical History H/O cleft lip repair multiple (as a child) H/O hernia repair as a child H/O inguinal hernia repair H/O local excision of skin lesion History of cardiac cath (~2011) [facility] - transferred to [facility] History of colonoscopy History of repair of congenital cleft palate multiple (as a child) History of right cataract surgery Hx of CABG x2 vessels in 2011 at [facility]. follows with Dr. Brambila (annually) Family History Other No family history of adverse response to anesthesia Social History Smoking Status: Former smoker Second Hand Exposure: No; Hx Alcohol Use: Yes Alcohol type: wine Hx Substance Use: No Preferred Language: Colombian Communication Ability: Effective Advertising Writer Required: No Beliefs That Will Affect Care: None Current Living Situation: Spouse Feels Safe at Home: Yes Safety Concerns: Feels Safe At This Time Assistive Devices: Denture - Upper and Glasses Review of Systems Review of Systems: Review of Systems: See HPI for pertinent positives. All other 10 point review of systems are negative. Physical Exam Physical Exam: General: no acute distress and stated age Head: normocephalic, no masses, lesions, tenderness or abnormalities Eyes: conjunctiva are pink and non-injected, sclera clear Neck: supple, no adenopathy, no bruits, normal jugular venous pulse, no hepatojugular reflux Chest: normal shape and normal respiratory effort Lungs: clear to auscultation and percussion Cardiac Exam: - regular rate & rhythm, no murmurs gallops or rubs - normal S1, normal S2 Pulses: 2(+) throughout Abdomen: abdomen soft, non-tender, no abnormal masses and no hepatosplenomegaly Musculoskeletal: no gait disturbance, no joint inflammation, no deforming arthritis Extremities: no edema and no cyanosis Neuro: grossly normal exam Results & Data Vital Signs (Past 12 Hours) Vital Signs Temp Pulse Resp BP Pulse Ox O2 Del Method 11/06/22 12:30 66 18 11/06/22 12:28 71 20 11/06/22 11:36 59 L 24 11/06/22 10:30 57 L 19 94 Room Air 11/06/22 10:30 142/74 H 11/06/22 10:15 131/73 11/06/22 10:15 56 L 17 11/06/22 10:00 56 L 18 95 Room Air 11/06/22 10:00 135/64 11/06/22 09:45 54 L 16 92 Room Air 11/06/22 09:45 110/59 L 11/06/22 09:30 57 L 18 94 Room Air 11/06/22 09:30 108/60 11/06/22 09:15 116/61 11/06/22 09:15 59 L 17 91 Room Air 11/06/22 09:00 54 L 14 93 Room Air 11/06/22 09:00 115/58 L 11/06/22 08:50 55 L 17 94 Room Air 11/06/22 08:45 108/70 11/06/22 08:45 53 L 16 92 Room Air 11/06/22 08:40 55 L 16 93 Room Air 11/06/22 08:30 56 L 16 92 Room Air 11/06/22 08:30 134/66 11/06/22 08:20 56 L 19 92 Room Air 11/06/22 08:15 119/67 11/06/22 08:15 57 L 22 92 Room Air 11/06/22 08:10 62 18 91 Room Air 11/06/22 08:09 63 17 91 Room Air 11/06/22 08:10 63 11/06/22 08:01 56 L 22 137/71 94 Room Air 11/06/22 08:00 56 L 22 94 Room Air 11/06/22 07:41 36.8 C 60 20 154/74 H 93 Laboratory Results Laboratory Results - last 24 hr 11/06/22 11/06/22 11/06/22 07:53 07:53 07:54 WBC 16.10 H RBC 5.76 Hgb 17.0 Hct 49.5 MCV 85.9 MCH 29.5 MCHC 34.3 RDW Std Deviation 42.4 RDW Coeff of [place] 13.5 Plt Count 151 MPV 10.0 Immature Gran % (Auto) 0.4 Neut % (Auto) 43.5 Lymph % (Auto) 49.3 Dixie % (Auto) 4.5 Eos % (Auto) 1.9 Baso % (Auto) 0.4 Neut # (Auto) 7.00 H Lymph # (Auto) 7.94 H Dixie # (Auto) 0.72 H Eos # (Auto) 0.31 Baso # (Auto) 0.07 Immature Gran # (Auto) 0.06 Sodium 137 Potassium 4.3 Chloride 104 Carbon Dioxide 26 Anion Gap 7 BUN 14 Creatinine 1.07 Est Cr Clr Drug Dosing 63.1 Est GFR ( Amer) 79.4 Est GFR (Non-Af Amer) 68.5 BUN/Creatinine Ratio 13.1 Glucose 114 H Calcium 9.0 Total Bilirubin 1.5 H AST 27 ALT 46 Alkaline Phosphatase 87 Troponin I High Sens 4.1 Total Protein 6.7 Albumin 4.4 Globulin 2.3 L Albumin/Globulin Ratio 1.9 Lipase 30 Procalcitonin < 0.05 SARS-CoV-2, RNA, NAAT 11/06/22 11/06/22 11:51 Unknown WBC RBC Hgb Hct MCV MCH MCHC RDW Std Deviation RDW Coeff of [place] Plt Count MPV Immature Gran % (Auto) Neut % (Auto) Lymph % (Auto) Dixie % (Auto) Eos % (Auto) Baso % (Auto) Neut # (Auto) Lymph # (Auto) Dixie # (Auto) Eos # (Auto) Baso # (Auto) Immature Gran # (Auto) Sodium Potassium Chloride Carbon Dioxide Anion Gap BUN Creatinine Est Cr Clr Drug Dosing Est GFR ( Amer) Est GFR (Non-Af Amer) BUN/Creatinine Ratio Glucose Calcium Total Bilirubin AST ALT Alkaline Phosphatase Troponin I High Sens 3.7 Total Protein Albumin Globulin Albumin/Globulin Ratio Lipase Procalcitonin SARS-CoV-2, RNA, NAAT NEGATIVE Medications Administered Current Inpatient Medications Acetaminophen (Acetaminophen 325 Mg Tab) 650 mg PO Q4H PRN PRN Reason: Pain or Fever Stop: 12/06/22 10:01 Al Hydrox/Mg Hydrox/Simethicone (Aluminum/Magnesium Susp 30 Ml Udc) 15 ml PO Q4H PRN PRN Reason: Dyspepsia Stop: 12/06/22 10:01 Aspirin (Aspirin 81 Mg Ectab) 81 mg PO QAM [facility] Stop: 12/07/22 08:59 Atorvastatin Calcium (Atorvastatin 40 Mg Tab) 80 mg PO QAM [facility] Stop: 12/07/22 08:59 Doxycycline Hyclate (Doxycycline Hyclate 100 Mg Cap) 100 mg PO BID [facility] Stop: 11/13/22 13:29 Heparin Sodium (Porcine) (Heparin Sod 5,000 Unit/0.5 Ml Vial) 5,000 units SQ Q12 [facility] Stop: 12/06/22 20:59 Losartan Potassium (Losartan Potassium 25 Mg Tab) 25 mg PO QAM [facility] Stop: 12/07/22 08:59 Magnesium Hydroxide (Magnesium Hydroxide Susp 30 Ml Udc) 30 ml PO Q12H PRN PRN Reason: Constipation Stop: 12/06/22 10:01 Metoprolol Succinate (Metoprolol Succ 50mg Ext Rel Tab) [facility] [place]: 12/07/22 08:59 Nitroglycerin (Nitroglycerin Sl 0.4 Mg/Tab Tab) 0.4 mg SL UD PRN PRN Reason: Chest Pain Stop: 12/06/22 10:01 Ondansetron HCl (Ondansetron Inj 2 Mg/Ml 2 Ml Vial) 4 mg IV Q6H PRN PRN Reason: Nausea Stop: 12/06/22 10:01 Polyethylene Glycol (Polyethylene (Miralax) 17 Gm Pack) 17 gm PO DAILY PRN PRN Reason: Constipation Stop: 12/06/22 10:01
[2022-11-06] MEDS: DOXYCYCLINE HYCLATE 100 MG CAP PO SCH ×2 (16:03→20:40)
[2022-11-06] MEDS: HEPARIN SOD 5,000 UNIT/0.5 ML VIAL SQ SCH (20:40)
[2022-11-07 06:47] LABS: Hematocrit (blood only) 46.7 % (42.0-52.0); Mean Corpuscular Hemoglobin 29.6 pg (25.0-34.0); Mean Corpuscular Hgb Conc 34.3 g/dL (32.0-36.0); Mean Corpuscular Volume 86.3 fL (80.0-100.0); Mean Platelet Volume 10.4 fL (9.4-12.4); Platelet Count 138 K/uL (130-400); RDW Coefficient of Variation 13.6 % (11.5-14.5); RDW Standard Deviation 42.3 fL (36.4-46.3); Red Blood Count 5.41 M/uL (4.70-6.10); White Blood Count 14.12 K/ul (4.8-10.8)
[2022-11-07 07:06] LABS: BUN Creatinine Ratio 13.9 (10-20); Calcium 8.5 mg/dl (8.6-10.3); Creatinine Clr Calc Pharmacy 55.3 ml/min; Est GFR (African American) 67.7 ml/min; Est GFR (Non-African American) 58.5 ml/min; Magnesium 2.2 mg/dl (1.7-2.4); Phosphorus 3.4 mg/dl (2.5-4.9); Potassium 4.3 mmol/L (3.5-5.1)
[2022-11-07] MEDS: DOXYCYCLINE HYCLATE 100 MG CAP PO SCH (08:41)
[2022-11-07] MEDS: HEPARIN SOD 5,000 UNIT/0.5 ML VIAL SQ SCH (08:41)
[2022-11-07] MEDS ORDERED: LOSARTAN POTASSIUM 25 MG TAB PO SCH (09:00)
[2022-11-07] MEDS ORDERED: ASPIRIN 81 MG ECTAB PO SCH (09:00)
[2022-11-07] MEDS ORDERED: METOPROLOL SUCC 50MG EXT REL TAB PO SCH (09:00)
[2022-11-07] MEDS ORDERED: ATORVASTATIN 40 MG TAB PO SCH (09:00)
--- NOTE | 2022-11-07 09:23 | Electrocardiogram Report ---
Test Reason : Blood Pressure : / mmHG Vent. Rate : 060 BPM Atrial Rate : 060 BPM P-R Int : 208 ms QRS Dur : 080 ms QT Int : 426 ms P-R-T Axes : 054 027 059 degrees QTc Int : 426 ms Poor data quality, interpretation may be adversely affected Normal sinus rhythm Nonspecific T wave abnormality Anteroseptal leads Abnormal ECG When compared with ECG of 06-NOV-2022 07:48, No significant change was found Confirmed by Gonzales Gant ([id number]) on 11/07/2022 9:23:33 AM Referred By: REFERRED SELF Confirmed By:Gonzales Gant
--- NOTE | 2022-11-07 11:00 | Cardiology Progress Note ---
Date of Service November 07, 2022 Assessment & Plan (1) Chest pain: (2) Leukocytosis: (3) Bronchitis: (4) Emphysema lung: Plan The patient's high-sensitivity troponins are negative. EKG shows no acute changes. CT of the chest and chest x-ray indicate bronchitis and changes due to emphysema. Echocardiogram showed no wall motion abnormalities or other significant findings. I think no additional cardiac testing is indicated at this time. The patient does follow with our cardiology group and should have follow-up with us. At that time we can determine if an outpatient stress test would be indicated. The patient can be discharged per the hospitalist. Admission and Anticipated Discharge Date Admission Date: November 06, 2022 Subjective The patient had an uneventful night. No additional chest pain. Review of Systems Review of Systems: Review of Systems: See HPI for pertinent positives. All other 10 point review of systems are negative. Physical Exam Physical Exam: General: no acute distress and stated age Head: normocephalic, no masses, lesions, tenderness or abnormalities Eyes: conjunctiva are pink and non-injected, sclera clear Neck: supple, no adenopathy, no bruits, normal jugular venous pulse, no hepatojugular reflux Chest: normal shape and normal respiratory effort Lungs: clear to auscultation and percussion Cardiac Exam: - regular rate & rhythm, no murmurs gallops or rubs - normal S1, normal S2 Pulses: 2(+) throughout Abdomen: abdomen soft, non-tender, no abnormal masses and no hepatosplenomegaly Musculoskeletal: no gait disturbance, no joint inflammation, no deforming arthritis Extremities: no edema and no cyanosis Neuro: grossly normal exam Results & Data Vital Signs (Past 12 Hours) Vital Signs Temp Pulse Pulse Resp BP Pulse Ox O2 Del Method 11/07/22 07:30 60 11/07/22 06:58 36.6 C 60 18 133/74 92 Room Air 11/07/22 02:41 36.6 C 60 18 128/73 93 Room Air 11/06/22 23:24 60 11/06/22 23:11 36.6 C 64 18 124/61 92 Room Air Laboratory Results Laboratory Results - last 24 hr 11/06/22 11/06/22 11/06/22 07:54 11:51 15:33 WBC RBC Hgb Hct MCV MCH MCHC RDW Std Deviation RDW Coeff of [place] Plt Count MPV Sodium Potassium Chloride Carbon Dioxide Anion Gap BUN Creatinine Est Cr Clr Drug Dosing Est GFR ( Amer) Est GFR (Non-Af Amer) BUN/Creatinine Ratio Glucose Calcium Phosphorus Magnesium Troponin I High Sens 3.7 3.4 Procalcitonin < 0.05 11/06/22 11/07/22 11/07/22 22:23 06:05 06:05 WBC 14.12 H RBC 5.41 Hgb 16.0 Hct 46.7 MCV 86.3 MCH 29.6 MCHC 34.3 RDW Std Deviation 42.3 RDW Coeff of [place] 13.6 Plt Count 138 MPV 10.4 Sodium 139 Potassium 4.3 Chloride 105 Carbon Dioxide 28 Anion Gap 6 BUN 17 Creatinine 1.22 Est Cr Clr Drug Dosing 55.3 Est GFR ( Amer) 67.7 Est GFR (Non-Af Amer) 58.5 BUN/Creatinine Ratio 13.9 Glucose 114 H Calcium 8.5 L Phosphorus 3.4 Magnesium 2.2 Troponin I High Sens 3.5 Procalcitonin Medications Administered Current Inpatient Medications Acetaminophen (Acetaminophen 325 Mg Tab) 650 mg PO Q4H PRN PRN Reason: Pain or Fever Stop: 12/06/22 10:01 Al Hydrox/Mg Hydrox/Simethicone (Aluminum/Magnesium Susp 30 Ml Udc) 15 ml PO Q4H PRN PRN Reason: Dyspepsia Stop: 12/06/22 10:01 Aspirin (A[facility] 81 Mg [facility]ctab) [facility] Stop: 12/07/22 08:59 Last Admin: 11/07/22 07:43 Dose: 81 mg Atorvastatin Calcium (Atorvastatin 40 Mg Tab) [facility] [place] Stop: 12/07/22 08:59 Last Admin: 11/07/22 07:43 Dose: 80 mg Doxycycline Hyclate (Doxycycline Hyclate 100 Mg Cap) 100 mg PO BID [facility] Stop: 11/13/22 13:29 Last Admin: 11/07/22 08:41 Dose: 100 mg Heparin Sodium (Porcine) (Heparin Sod 5,000 Unit/0.5 Ml Vial) 5,000 units SQ Q12 [facility] Stop: 12/06/22 20:59 Last Admin: 11/07/22 08:41 Dose: 5,000 units Losartan Potassium (Losartan Potassium 25 Mg Tab) [facility] [place] Stop: 12/07/22 08:59 Last Admin: 11/07/22 07:43 Dose: 25 mg Magnesium Hydroxide (Magnesium Hydroxide Susp 30 Ml Udc) 30 ml PO Q12H PRN PRN Reason: Constipation Stop: 12/06/22 10:01 Metoprolol Succinate (Metoprolol Succ 50mg Ext Rel Tab) 100 mg PO QAM [facility] Stop: 12/07/22 08:59 Last Admin: 11/07/22 07:43 Dose: 100 mg Nitroglycerin (Nitroglycerin Sl 0.4 Mg/Tab Tab) 0.4 mg SL UD PRN PRN Reason: Chest Pain Stop: 12/06/22 10:01 Ondansetron HCl (Ondansetron Inj 2 Mg/Ml 2 Ml Vial) 4 mg IV Q6H PRN PRN Reason: Nausea Stop: 12/06/22 10:01 Polyethylene Glycol (Polyethylene (Miralax) 17 Gm Pack) 17 gm PO DAILY PRN PRN Reason: Constipation Stop: 12/06/22 10:01
--- NOTE | 2022-11-07 14:47 | Hospitalist Progress Note ---
Date of Service November 07, 2022 Assessment & Plan (1) Chest pain: Plan Acute bronchitis/Pneumonia Chest pain secondary to above Less likely ACS --CTA:Cardiomegaly without pulmonary emboli identified. Emphysema with bronchitis and mild bibasilar mucous plugging. Patchy bibasilar predominant opacities are compatible with a nonspecific infectious or inflammatory pneumonitis. Mild mediastinal lymphadenopathy, likely reactive. Hepatosplenomegaly with hepatic steatosis. --ECHO showed no wall motion abnormality --Troponin negative -- Normal procalcitonin -- COVID screen negative -- Appreciate cardiology input Started on doxycycline, cefuroxime Pulmonary hygiene Advised to follow-up with PCP upon discharge Hepatosplenomegaly Incidental finding on CT Lymphocytosis on blood work Patient aware of the same from the past: Evaluated in the past as per patient Advised to follow as outpatient chronic medical conditions: HTN, HLD, CAD Continue home medications DVT Px: Heparin SQ Code Status Full code Admission and Anticipated Discharge Date Admission Date: November 06, 2022 Subjective Patient is seen and examined at bedside Reports cough with yellowish expectoration Chest pain resolved Denies any dyspnea, dizziness, nausea, abdominal pain Saturating well on room air No other complaints Review of Systems Review of Systems: All systems reviewed & are unremarkable except as noted in Subjective Physical Exam Physical Exam: Physical Exam: Vitals signs as noted above General Appearance:Obese, no apparent distress Head: normocephalic, Atraumatic Eyes: normal inspection, EOMI Neck: supple, Trachea midline Respiratory/Chest: Decreased breath sounds, CTA, No accessory muscle use Cardiovascular: S1, S2, No murmur Abdomen/GI:Soft, Non tender, Bowel sounds present Extremities/Musculoskeletal:normal inspection, no edema Neurologic/Psych:AAOX3, grossly no focal neurological deficits Skin: normal color, warm Results & Data Results & Data Vital Signs (Past 12 Hours) Vital Signs Temp Pulse Pulse Resp BP Pulse Ox O2 Del Method 11/07/22 12:04 36.5 C 57 L 18 120/71 93 Room Air 11/07/22 07:30 60 11/07/22 06:58 36.6 C 60 18 133/74 92 Room Air Laboratory Results Short CBC 11/07/22 Range/Units 06:05 WBC 14.12 H (4.8-10.8) K/ul Hgb 16.0 (14.0-18.0) g/dl Hct 46.7 (42.0-52.0) % Plt Count 138 (130-400) K/uL BMP 11/07/22 06:05 Sodium 139 Potassium 4.3 Chloride 105 Carbon Dioxide 28 BUN 17 Creatinine 1.22 Glucose 114 H Calcium 8.5 L
--- NOTE | 2022-11-07 19:28 | Discharge Summary ---
Date of Service November 07, 2022 Admission HPI Per Admitting Provider 72-year-old male with PMH of CAD, CABG x2 [2012], HLD, HTN, post bronchitis tussive syndrome, positional sleep apnea, CKD stage III presented to the ED 11/06 with complaint of chest pain. Patient reports waking up from left-sided dull to annoying chest pain, 6/10 at onset, slightly relieved with sublingual nitro taken at home, no association with sweating/dizziness/dry heaves/palpitation, no radiation of chest pain, has been continuous since 4:30 in the morning but has gone down significantly after taking nitro and aspiring including at home and at ED, currently 1/10 at bedside exam, does not report any aggravating factor. Patient does report chronic cough, no new cough. Denies palpitation or headache or dizziness or sore throat or flulike illness or belly pain. Reports no new changes in his bowel or bladder habits. Reports normal appetite. Patient likens this chest pain to the pain prior to getting his CABG in 2011. Patient denies any stroke or blood clot. Patient does have history of skin cancer on left leg which has been surgically removed. Patient reports brother and father with heart problems but not sure what kind. Denies smoking currently, quit 20 years ago, drinks 2 glasses of wine or beer almost every day, last drink was yesterday. Denies any use of recreational or illicit drugs. Full code, POA patient's Francisca Medications reviewed with the patient, he is taken all his a.m. medications today prior to arrival. Plan of care reviewed with the patient and patient's at bedside, they voiced understanding and were agreeable. Admission Exam Per Admitting Provider GENERAL: Alert and oriented x3. NAD, on RA. HEENT: No pallor, no icterus. Pupils equal, round and reactive to light. Oral mucosa moist. NECK: No JVD, no neck masses. HEART: S1 and S2 heard. Regular rate and rhythm. No murmur, no gallop. Chest: old healed midsternotomy scar. RESPIRATORY SYSTEM: Normal AP diameter. No accessory muscle use. No wheezing, no crackles. ABDOMEN: Soft, bowel sounds present, nontender, no distention. CENTRAL NERVOUS SYSTEM: No facial droop. Speech is clear. Obeys simple commands. Moves extremities. EXTREMITIES: No edema, no erythema seen. Principal Diagnosis Acute bronchitis/Pneumonia-POA Chest pain Discharge Data Allergies Allergy/AdvReac Type Severity Reaction Status Date / Time lisinopril AdvReac Unknown DRY COUGH Verified 12/06/21 06:12 Consultations 11/06/22 08:46 ED Decision to Admit Stat 11/06/22 10:02 Consult Cardiology Routine Procedures Performed Laboratory Results WBC 14.12 K/ul (4.8-10.8) H 11/07/22 06:05 RBC 5.41 M/uL (4.70-6.10) 11/07/22 06:05 Hgb 16.0 g/dl (14.0-18.0) 11/07/22 06:05 Hct 46.7 % (42.0-52.0) 11/07/22 06:05 MCV 86.3 fL (80.0-100.0) 11/07/22 06:05 MCH 29.6 pg (25.0-34.0) 11/07/22 06:05 MCHC 34.3 g/dL (32.0-36.0) 11/07/22 06:05 RDW Std Deviation 42.3 fL (36.4-46.3) 11/07/22 06:05 RDW Coeff of [place] 13.6 % (11.5-14.5) 11/07/22 06:05 Plt Count 138 K/uL (130-400) 11/07/22 06:05 MPV 10.4 fL (9.4-12.4) 11/07/22 06:05 Immature Gran % (Auto) 0.4 % 11/06/22 07:53 Neut % (Auto) 43.5 % 11/06/22 07:53 Lymph % (Auto) 49.3 % 11/06/22 07:53 [place] % (Auto) 4.5 % 11/06/22 07:53 Eos % (Auto) 1.9 % 11/06/22 07:53 Baso % (Auto) 0.4 % 11/06/22 07:53 Neut # (Auto) 7.00 K/uL (1.40-6.50) H 11/06/22 07:53 Lymph # (Auto) 7.94 K/uL (1.2-3.4) H 11/06/22 07:53 [place] # (Auto) 0.72 K/uL (0.11-0.59) H 11/06/22 07:53 Eos # (Auto) 0.31 K/uL (0-0.50) 11/06/22 07:53 Baso # (Auto) 0.07 K/uL (0-0.2) 11/06/22 07:53 Immature Gran # (Auto) 0.06 K/uL (0.01-0.20) 11/06/22 07:53 Sodium 139 mmol/L (136-145) 11/07/22 06:05 Potassium 4.3 mmol/L (3.5-5.1) 11/07/22 06:05 Chloride 105 mmol/L (98-107) 11/07/22 06:05 Carbon Dioxide 28 mmol/L (21-32) 11/07/22 06:05 Anion Gap 6 (3-11) 11/07/22 06:05 BUN 17 mg/dl (6-23) 11/07/22 06:05 Creatinine 1.22 mg/dl (0.6-1.4) 11/07/22 06:05 Est Cr Clr Drug Dosing 55.3 ml/min 11/07/22 06:05 Est GFR ( Amer) 67.7 ml/min 11/07/22 06:05 Est GFR (Non-Af Amer) 58.5 ml/min 11/07/22 06:05 BUN/Creatinine Ratio 13.9 (10-20) 11/07/22 06:05 Glucose 114 mg/dl (70-99(Fasting)) H 11/07/22 06:05 Calcium 8.5 mg/dl (8.6-10.3) L 11/07/22 06:05 Phosphorus 3.4 mg/dl (2.5-4.9) 11/07/22 06:05 Magnesium 2.2 mg/dl (1.7-2.4) 11/07/22 06:05 Total Bilirubin 1.5 mg/dl (0.2-1.0) H 11/06/22 07:53 AST 27 U/L (13-39) 11/06/22 07:53 ALT 46 U/L (7-52) 11/06/22 07:53 Alkaline Phosphatase 87 U/L (34-104) 11/06/22 07:53 Troponin I High Sens 3.5 pg/ml (0-20) 11/06/22 22:23 Total Protein 6.7 gm/dl (6.0-8.3) 11/06/22 07:53 Albumin 4.4 gm/dl (3.4-5.0) 11/06/22 07:53 Globulin 2.3 gm/dl (2.5-4.0) L 11/06/22 07:53 Albumin/Globulin Ratio 1.9 (0.9-2) 11/06/22 07:53 Lipase 30 U/L (11-82) 11/06/22 07:53 Procalcitonin < 0.05 ng/ml (0-0.5) 11/06/22 07:54 SARS-CoV-2, RNA, NAAT NEGATIVE (NEGATIVE) 11/06/22 Unknown Impressions Chest X-Ray 11/06/22 07:49 XR chest 1V portable HISTORY: 72 years-old Male Chest pain, nonspecific COMPARISON: 04/26/2012 TECHNIQUE: AP view of the chest FINDINGS: Cardiac silhouette is enlarged. Prior median sternotomy with CABG. Chronic deformity of the right fifth rib which is likely developmental. Perivascular congestion. Mild bibasilar consolidation with probable trace pleural effusions. No pneumothorax. Degenerative changes of the shoulders and spine. IMPRESSION: 1. Cardiomegaly with pulmonary vascular congestion. 2. Probable trace pleural effusions with bibasilar consolidation. Findings may represent a nonspecific infectious or inflammatory pneumonitis. ACT 112: Negative or not required by law. The above report was generated using voice recognition software. It may contain grammatical, syntax or spelling errors. Electronically signed by: Lisandro Graham M.D. 11/06/2022 8:32 AM Chest CTA 11/06/22 09:31 CT angio chest PE protocol CT DOSE: 493.11 mGy.cm HISTORY: 72 years-old Male with hypoxic w/ cp. Acute hypoxia with chest pain TECHNIQUE: Multiple CTA images of the chest were obtained after the intravenous administration of 109 ml Optiray. Coronal and sagittal MIPS were obtained from the axial data set and were submitted for review. All measurements were obtained according to NASCET criteria. A dose lowering technique was utilized adhering to the principles of ALARA. COMPARISON: Chest radiograph of same day and also 04/26/2012 FINDINGS: CTA: Moderate cardiomegaly. No pericardial effusion. Prior median sternotomy with CABG. Extensive calcifications of the coronary arteries. Atherosclerosis of the aorta without aneurysm. There is patency of the imaged great vessels. No pulmonary emboli are identified. CT CHEST: Unremarkable thyroid. Mild mediastinal lymphadenopathy with subcarinal lymph nodes measuring up to 1.3 cm. No pneumothorax or pleural effusion. Mild pulmonary emphysema with bronchial wall thickening. Mild intralobular septal thickening. Patchy mid to lower lung zone prominent distribution of subsegmental groundglass and consolidative opacities. There are no suspicious pulmonary nodules or masses identified. 8 mm fissural nodule of the right middle lobe on image 108 suggestive of a benign lymph node. Mild hepatosplenomegaly with hepatic steatosis. The imaged spleen measures up to 13.3 cm. Unremarkable soft tissues. No acute fracture. Chronic deformity of the right anterolateral fifth rib. IMPRESSION: 1. Cardiomegaly without pulmonary emboli identified. 2. Emphysema with bronchitis and mild bibasilar mucous plugging. 3. Patchy bibasilar predominant opacities are compatible with a nonspecific i nfectious or inflammatory pneumonitis. 4. Mild mediastinal lymphadenopathy, likely reactive. 5. Hepatosplenomegaly with hepatic steatosis. ACT 112: Negative or not required by law. The above report was generated using voice recognition software. It may contain grammatical, syntax or spelling errors. Electronically signed by: Lisandro Graham M.D. 11/06/2022 11:13 AM Ordered Studies 11/06/22 09:31 CT angio chest PE protocol Stat Hospital Course (1) Chest pain: Plan Acute bronchitis/Pneumonia Chest pain secondary to above Less likely ACS --CTA:Cardiomegaly without pulmonary emboli identified. Emphysema with bronch itis and mild bibasilar mucous plugging. Patchy bibasilar predominant opacities are compatible with a nonspecific infectious or inflammatory pneumonitis. Mild mediastinal lymphadenopathy, likely reactive. Hepatosplenomegaly with hepatic steatosis. --ECHO showed no wall motion abnormality --Troponin negative -- Normal procalcitonin -- COVID screen negative -- Appreciate cardiology input Started on doxycycline, cefuroxime Pulmonary hygiene Advised to follow-up with PCP upon discharge Hepatosplenomegaly Incidental finding on CT Lymphocytosis on blood work Patient aware of the same from the past: Evaluated in the past as per patient Advised to follow as outpatient chronic medical conditions: HTN, HLD, CAD Continue home medications DVT Px: Heparin SQ Code Status Full code Total Time Total Time Spent Total Time Spent (In Minutes): 59 minutes Discharge Plan Discharge Items Patient Disposition: Home - Self-Care Reason For Visit: CHEST PAIN Discharge Diagnosis: Acute bronchitis/Pneumonia Chest pain Activity: Per Instructions section Exercise/Sports: Gradually increase as tolerated Non-emergency contact: Primary Care Provider Call non-emergency contact if: you have any medication questions, your symptoms worsen, your pain is concerning for you and you have a fever Follow-up/Referrals: Luther Harrison MD [Primary Care Provider] - (Date & Time 11/12/2022 8:20 AM Provider Joon Foster MD [facility] ) Diet: Heart Healthy Addtl Attending Provider Instructions: Follow-up with your primary care physician on 11/12/2022 8:20 AM --- Complete antibiotic course for bronchitis as prescribed. --- Follow-up with your physician for further evaluation of enlarged liver/spleen and lymphocytosis as advised Seek immediate medical attention if your symptoms reoccur or worsen Please take all medications as instructed on discharge list below. Please call if you have any questions or problems. You can reach a [facility] hospitalist on duty at [facility] 24 hours a day by calling [phone] Pending Studies at Discharge: No Stand-Alone Forms: My [facility], Smoking Cessation Medications and DC Order Prescriptions: New doxycycline hyclate 100 mg Capsule 100 mg PO BID Qty: 12 0RF cefuroxime axetil 500 mg tablet 500 mg PO BID 7 Days Qty: 14 0RF Continued atorvastatin 80 mg Tablet 80 mg PO QAM metoprolol succinate 100 mg Tablet Extended Release 24 Hr 100 mg PO QAM losartan 25 mg Tablet 25 mg PO QAM aspirin 81 mg Tablet 81 mg PO QAM multivitamin Tablet 1 tab PO QAM Discharge Orders: Discharge Order (Routine); Ordered 11/07/22 Ordered By: Raz Lazcano/Other Patient Handouts: First Aid: Heart Attacks, Your Heart Is at Risk, Warning Signs of a Heart Attack Admission Data Admit Date/Time: 11/06/22 10:03 Attending Provider: Raz Perez Admit Provider: Mary Alice Loja Primary Care Provider: Luther Harrison Other Providers: Mary Alice Loja ; Melissa Chong ; Presley Beaver ; Kai Brmabila ; José Perales ; Agus Bear ; Derrick Aguero ; Luther Kee ; Shavon Hawkins ; Cathleen Hollingsworth ; Melissa Galaviz ; Jose Ji ; Judith Barkley Other Interventions: Discharge Summary Assessment (RN) Last Done: 11/07/22 15:00
== END 2022-11-07 15:26 | disposition home or self-care (01) ==
LOC: EDINP 07:38 → ED 07:38 → SUATTDRO 10:03 → EDINP 11:18 → 2S 18:50

== ENCOUNTER 2024-02-25 04:32 | Inpatient (IN) ==
--- NOTE | 2024-02-25 04:49 | Emergency Department Note ---
Impression & Plan Chest pain, Leukocytosis ED Provider Note ED Provider Note NAME: CEDRIC FUNES AGE:73 SEX: Male : 1950 ARRIVES VIA: Private vehicle INFORMANT: Patient ED PROVIDER(s): Rosmery Quijano DO CHIEF COMPLAINT: Chest pain HPI: This is a 73-year-old male presents emerged from due to concern for chest pain which woke him up from sleep. He states it is left-sided and nonradiating. He denies any coming dizziness, shortness of breath, nausea or vomiting. No recent fevers, chills, or URI symptoms. He states he did lift a bag of sand recently and was sore across his shoulders and arms but did not have any soreness or pain into the chest. He states he had no chest pain when he went to bed last night. Patient has had a prior CABG x 2 several years ago and does follow with cardiology locally, Dr. Brambila. No other recent change in medications. No recent increased GERD/heartburn type symptoms. Patient is a former smoker. PAST MEDICAL HISTORY:See Below PAST SURGICAL HISTORY:See Below FAMILY HISTORY:See Below SOCIAL HISTORY:See Below HOME MEDICATIONS:See Below ALLERGIES:See Below VITALS:See Below PHYSICAL EXAMINATION: GENERAL: alert, well appearing, well nourished, no distress, non-toxic EYE EXAM: normal conjunctiva, PERRL and EOM's grossly intact OROPHARYNX: no exudate, no erythema, lips, buccal mucosa, and tongue normal and mucous membranes are moist NECK: supple, no nuchal rigidity, no adenopathy, non-tender LUNGS: Clear to auscultation. Normal chest wall mechanics, no w/r/r HEART: no murmurs, S1 normal and S2 normal, well-healed vertical midline sternotomy scar ABDOMEN: abdomen soft, non-tender, normo-active bowel sounds, no masses, no rebound or guarding. BACK: Back is symmetrical on inspection SKIN: no rashes, petechiae, orbruising UPPER EXTREMITIES: upper extremities are grossly normal. FROM, nml pulses b/l. LOWER EXTREMITIES: No pitting edema. FROM, nml pulses b/l. NEURO EXAM: Normal sensorium, cranial nerves II-XII grossly intact, normal speech, no facial droop,nogross weakness of arms, no gross weakness of legs. Gross sensation intact. No ataxia. Vital Signs: reviewed and remarkable Differential Diagnosis: acute coronary syndrome, pericarditis, pulmonary embolus, aortic dissection, pneumonia, pneumothorax, musculoskeletal pain, shingles, GERD, GI bleed, as well as others were considered MEDICAL DECISION MAKING: This is a 73 yo male with a hx of CAD and CABG who presents with chest pain. He was afebrile and VS stable. Labs drawn and sent, IV established, EKG and CXR performed and interpreted at bedside, and patient placed on telemetry. He was given IV tylenol, IV pepcid, and nitro paste with improvement. First troponin negative. CXR without acute changes. Pain improved with medications. CBC revealed significant leukocytosis. No prior similar results. No symptoms to suggest infection or c.diff. Cultures added. Case discussed with hospitalist. We discussed addition of peripheral smear, CT imaging, and impiric antibiotics. He will evaluate the patient first and then decide on additional testing/treatment. Patient and updated on all results and plan. Patient had no LE edema, sob, hypoxia, ectopy/dysrhythmia while in the ER. Consultation(s): 0625: Discussed with Dr. Edwards, [facility] hospitalist, for additional evaluation and mgmt. ER Treatment Provided: See below 0615: Updated patient and at bedside. No prior significant leukocytosis of this level. Patient states he did have 24 hours of a stomach bug which she thought was foodborne over February 05 however he has been fine since. No recent antibiotics. No recent diarrhea. No recent steroids. Only medication change in recent months have been the thyroid medication 4 to 5 months ago. Diagnostics Interpreted By Me: -ECG: Normal sinus at 61, normal axis, normal intervals, inverted T waves noted in V1 through V3 with appearance of biphasic T wave in V3/V4; no significant change compared to November 07, 2022 -Cardiac Monitoring: An order was placed for continuous cardiac monitoring. The monitor shows a rate of 62 with normal sinus rhythm. -Laboratory studies: As stated above and show below. -Imaging studies: cxr: Sternotomy wires noted, chronic appearing changes in the right lower lobe, no wide mediastinum, no cardiomegaly, no pleural effusions Triage Nursing Note Reviewed Prior/Outside Records Reviewed -prior cardiology office visit reviewed Past Med/Surg History Problem List (Updated 02/26/24 @ 17:01 by Filiberto Cazares MD) Lymphocytosis Abnormal chest CT Leukocytosis (Acute) Chest pain (Acute) Emphysema lung Bronchitis Leukocytosis (Acute) Hypoxia (Acute) Encounter for pre-operative examination Medical History History of skin cancer Hx of colonic polyps Hyperlipidemia Hypertension Osteoarthritis Surgical History H/O cleft lip repair multiple (as a child) H/O hernia repair as a child H/O inguinal hernia repair H/O local excision of skin lesion History of cardiac cath (~2011) [facility] - transferred to [facility] History of colonoscopy History 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 follows with Dr. Brambila (annually) Family History Other No family history of adverse response to anesthesia Social History Smoking Status: Former smoker Second Hand Exposure: No; Do You Dip or Chew Tobacco: No; Tobacco Cessation Education Requested by Patient: No Hx Alcohol Use: No Hx Substance Use: No Preferred Language: Telugu Communication Ability: Effective Content Manager Required: No Beliefs That Will Affect Care: None Current Living Situation: Spouse Other Information That Helps Us Care for You: No Feels Safe at Home: Yes Safety Concerns: Feels Safe At This Time Assistive Devices: None Allergies Allergies Allergy/AdvReac Type Severity Reaction Status Date / Time lisinopril AdvReac Unknown DRY COUGH Verified 12/06/21 06:12 Home Meds Home Medications Medication Instructions Recorded Confirmed atorvastatin 80 mg tablet 80 mg PO DAILY 02/25/24 02/25/24 ezetimibe 10 mg tablet 10 mg PO DAILY 02/25/24 02/25/24 levothyroxine 25 mcg tablet 25 mcg PO DAILY 02/25/24 02/25/24 losartan 25 mg tablet 25 mg PO DAILY 02/25/24 02/25/24 metoprolol succinate 100 mg 100 mg PO DAILY 02/25/24 02/25/24 tablet,extended release 24 hr nitroglycerin 0.4 mg sublingual 0.4 mg sublingual USEASDIRECTD PRN 02/25/24 02/25/24 tablet Chest Pain Previous Rx's Medication Instructions Recorded aspirin 81 mg tablet,delayed 81 mg PO QAM 30 days #30 tabs 02/26/24 release cefdinir 300 mg capsule 300 mg PO BID 5 days #10 caps 02/26/24 doxycycline hyclate 100 mg capsule 100 mg PO BID 5 days #10 caps 02/26/24 guaifenesin 600 mg tablet, 600 mg PO BID 7 days #14 tabs 02/26/24 extended release 12 hr (Mucinex) Results & Data (ED) Vital Signs Vital Signs - 24 hr 02/25/24 04:35 02/25/24 04:43 02/25/24 04:43 Temperature 36.8 C Temperature Source Temporal Artery Scan Pulse Rate 62 Pulse Rate from SpO2 Sensor Respiratory Rate 18 Respiratory Effort / Characteristics Non-Labored Respiratory Depth Normal Respiratory Pattern Regular Blood Pressure 135/62 134/69 134/69 Blood Pressure Mean 86 83 83 Pulse Oximetry 92 Oxygen Delivery Method Room Air Sepsis Recent Fever Within 48 Hours No Sepsis New/Unexplained Change in Mental Status N/A Sepsis Action Taken by Nursing No Action Required 02/25/24 04:45 02/25/24 04:51 02/25/24 04:54 Temperature Temperature Source Pulse Rate 63 58 L 63 Pulse Rate from SpO2 Sensor 58 L 63 Respiratory Rate 17 20 Respiratory Effort / Characteristics Respiratory Depth Respiratory Pattern Blood Pressure Blood Pressure Mean Pulse Oximetry 91 93 Oxygen Delivery Method Sepsis Recent Fever Within 48 Hours Sepsis New/Unexplained Change in Mental Status Sepsis Action Taken by Nursing 02/25/24 04:55 02/25/24 05:00 02/25/24 05:00 Temperature Temperature Source Pulse Rate 57 L Pulse Rate from SpO2 Sensor 57 L Respiratory Rate 16 Respiratory Effort / Characteristics Respiratory Depth Respiratory Pattern Blood Pressure 122/63 118/64 Blood Pressure Mean 90 90 Pulse Oximetry 93 Oxygen Delivery Method Sepsis Recent Fever Within 48 Hours Sepsis New/Unexplained Change in Mental Status Sepsis Action Taken by Nursing 02/25/24 05:30 02/25/24 05:33 02/25/24 05:45 Temperature Temperature Source Pulse Rate 58 L 58 L 56 L Pulse Rate from SpO2 Sensor 58 L 58 L 56 L Respiratory Rate 17 17 18 Respiratory Effort / Characteristics Respiratory Depth Respiratory Pattern Blood Pressure 117/60 117/60 100/60 Blood Pressure Mean 79 79 75 Pulse Oximetry 93 91 91 Oxygen Delivery Method Room Air Room Air Room Air Sepsis Recent Fever Within 48 Hours Sepsis New/Unexplained Change in Mental Status Sepsis Action Taken by Nursing 02/25/24 06:00 Temperature Temperature Source Pulse Rate 57 L Pulse Rate from SpO2 Sensor 57 L Respiratory Rate 13 Respiratory Effort / Characteristics Respiratory Depth Respiratory Pattern Blood Pressure 112/59 L Blood Pressure Mean 68 Pulse Oximetry 91 Oxygen Delivery Method Room Air Sepsis Recent Fever Within 48 Hours Sepsis New/Unexplained Change in Mental Status Sepsis Action Taken by Nursing Laboratory Data 02/26/24 05:33 02/26/24 05:33 Lab Results 02/25/24 02/25/24 02/25/24 Range/Units 04:53 05:11 05:54 WBC 37.22 H* (4.8-10.8) K/ul RBC 5.78 (4.70-6.10) M/uL Hgb 16.5 (14.0-18.0) g/dl Hct 50.0 (42.0-52.0) % MCV 86.5 (80.0-100.0) fL MCH 28.5 (25.0-34.0) pg MCHC 33.0 (32.0-36.0) g/dL RDW Std Deviation 45.8 (36.4-46.3) fL RDW Coeff of [place] 14.6 H (11.5-14.5) % Plt Count 146 (130-400) K/uL MPV 10.5 (9.4-12.4) fL Immature Gran % (Auto) 0.3 % Neut % (Auto) 23.7 % Lymph % (Auto) 71.7 % [place] % (Auto) 2.5 % Eos % (Auto) 1.5 % Baso % (Auto) 0.3 % Neut # (Auto) 8.80 H (1.40-6.50) K/uL Lymph # (Auto) 26.69 H (1.20-3.40) K/uL [place] # (Auto) 0.94 H (0.11-0.59) K/uL Eos # (Auto) 0.55 H (0.00-0.50) K/uL Baso # (Auto) 0.12 (0.00-0.20) K/uL Immature Gran # (Auto) 0.12 (0.01-0.20) K/uL Absolute Nucleated RBC 0.08 (0.00-0.12) K/uL Nucleated RBC % (auto) 0.2 % Blood Smear Review Cancelled Peripher Smr Path Cons PT 11.0 (9.0-12.0) Seconds INR 1.0 (0.9-1.1) Sodium TNP 136 Potassium TNP 5.0 Chloride 105 (98-107) mmol/L Carbon Dioxide 23 (21-32) mmol/L Anion Gap TNP BUN 16 (6-23) mg/dl Creatinine 1.07 (0.6-1.4) mg/dl Est Cr Clr Drug Dosing 64.3 ml/min Est GFR ( Amer) 78.8 ml/min Est GFR (Non-Af Amer) 68.0 ml/min BUN/Creatinine Ratio 15.0 (10-20) Glucose 113 H (70-99(Fasting)) mg/dl Calcium 8.8 (8.6-10.3) mg/dl Magnesium TNP 2.1 Total Bilirubin 1.6 H (0.2-1.0) mg/dl AST TNP 25 ALT 50 (7-52) U/L Alkaline Phosphatase 87 (34-104) U/L Troponin I High Sens 2.4 (0-20) pg/ml B-Natriuretic Peptide 38 (0-100) pg/ml Total Protein 6.6 (6.0-8.3) gm/dl Albumin 4.3 (3.4-5.0) gm/dl Globulin 2.3 L (2.5-4.0) gm/dl Albumin/Globulin Ratio 1.9 (0.9-2) Procalcitonin (0-0.5) ng/ml 02/25/24 Range/Units 06:42 WBC (4.8-10.8) K/ul RBC (4.70-6.10) M/uL Hgb (14.0-18.0) g/dl Hct (42.0-52.0) % MCV (80.0-100.0) fL MCH (25.0-34.0) pg MCHC (32.0-36.0) g/dL RDW Std Deviation (36.4-46.3) fL RDW Coeff of [place] (11.5-14.5) % Plt Count (130-400) K/uL MPV (9.4-12.4) fL Immature Gran % (Auto) % Neut % (Auto) % Lymph % (Auto) % [place] % (Auto) % Eos % (Auto) % Baso % (Auto) % Neut # (Auto) (1.40-6.50) K/uL Lymph # (Auto) (1.20-3.40) K/uL [place] # (Auto) (0.11-0.59) K/uL Eos # (Auto) (0.00-0.50) K/uL Baso # (Auto) (0.00-0.20) K/uL Immature Gran # (Auto) (0.01-0.20) K/uL Absolute Nucleated RBC (0.00-0.12) K/uL Nucleated RBC % (auto) % Blood Smear Review Peripher Smr Path Cons PT (9.0-12.0) Seconds INR (0.9-1.1) Sodium Potassium Chloride (98-107) mmol/L Carbon Dioxide (21-32) mmol/L Anion Gap BUN (6-23) mg/dl Creatinine (0.6-1.4) mg/dl Est Cr Clr Drug Dosing ml/min Est GFR ( Amer) ml/min Est GFR (Non-Af Amer) ml/min BUN/Creatinine Ratio (10-20) Glucose (70-99(Fasting)) mg/dl Calcium (8.6-10.3) mg/dl Magnesium Total Bilirubin (0.2-1.0) mg/dl AST ALT (7-52) U/L Alkaline Phosphatase (34-104) U/L Troponin I High Sens (0-20) pg/ml B-Natriuretic Peptide (0-100) pg/ml Total Protein (6.0-8.3) gm/dl Albumin (3.4-5.0) gm/dl Globulin (2.5-4.0) gm/dl Albumin/Globulin Ratio (0.9-2) Procalcitonin 0.04 (0-0.5) ng/ml Administered Medications Discontinued Medications Aspirin (Aspirin 81 Mg Ectab) 81 mg [facility] Stop: 03/26/24 13:59 Last Admin: 02/26/24 09:03 Dose: 81 mg Documented By: Admin: 02/25/24 18:44 Dose: 81 mg Documented By: BENY Atorvastatin Calcium (Atorvastatin 40 Mg Tab) 80 mg PO DAILY HONEY Stop: 03/26/24 08:59 Last Admin: 02/26/24 09:04 Dose: 80 mg Documented By: Admin: 02/25/24 12:21 Dose: 80 mg Documented By: BENY Ezetimibe (Ezetimibe 10 Mg Tab) 10 mg PO DAILY HONEY Stop: 03/26/24 08:59 Last Admin: 02/26/24 09:04 Dose: 10 mg Documented By: Admin: 02/25/24 12:22 Dose: 10 mg Documented By: BENY Acetaminophen (Ofirmev) 1,000 mg in 100 mls @ 400 mls/hr IV NOW STA Stop: 02/25/24 04:58 Last Infusion: 02/25/24 05:33 Dose: Infused Documented By: Admin: 02/25/24 04:58 Dose: 400 mls/hr Documented By: SANDRA Famotidine (Pepcid 20mg Iv Push) 20 mg in 5 mls @ 2.5 mls/min IV NOW STA Stop: 02/25/24 04:45 Last Admin: 02/25/24 04:57 Dose: 2.5 mls/min Documented By: SANDRA Ceftriaxone Sodium (Rocephin) 2,000 mg in 50 mls @ 100 mls/hr IV Q24H HONEY Stop: 03/03/24 08:59 Last Infusion: 02/26/24 09:54 Dose: Infused Documented By: Admin: 02/26/24 09:04 Dose: 100 mls/hr Documented By: Infusion: 02/25/24 13:14 Dose: Infused Documented By: Admin: 02/25/24 12:14 Dose: 100 mls/hr Documented By: BENY Doxycycline Hyclate 100 mg/ (Dextrose) 100 mls @ 50 mls/hr IV Q12H HONEY Stop: 03/03/24 08:59 Last Infusion: 02/26/24 12:30 Dose: Infused Documented By: Admin: 02/26/24 10:30 Dose: 50 mls/hr Documented By: Infusion: 02/25/24 23:37 Dose: Infused Documented By: Admin: 02/25/24 21:37 Dose: 50 mls/hr Documented By: Infusion: 02/25/24 14:09 Dose: Infused Documented By: Admin: 02/25/24 12:09 Dose: 50 mls/hr Documented By: BENY Ioversol (Optiray 320 125ml) 112 ml IV ONCE ONE Stop: 02/25/24 07:32 Last Admin: 02/25/24 07:31 Dose: 112 ml Documented By: SUNITA Levothyroxine Sodium (Levothyroxine Sodium 25 Mcg Tablet) 25 mcg PO DAILYBB [facility] Stop: 03/26/24 06:29 Last Admin: 02/26/24 06:24 Dose: 25 mcg Documented By: Admin: 02/25/24 09:41 Dose: Not Given Documented By: BENY Losartan Potassium (Losartan Potassium 25 Mg Tab) 25 mg PO DAILY HONEY Stop: 03/26/24 08:59 Last Admin: 02/26/24 09:46 Dose: 25 mg Documented By: Admin: 02/25/24 12:22 Dose: 25 mg Documented By: BENY Metoprolol Succinate (Metoprolol Succ 50mg Ext Rel Tab) 100 mg PO DAILY HONEY Stop: 03/26/24 08:59 Last Admin: 02/26/24 09:03 Dose: 100 mg Documented By: Admin: 02/25/24 12:21 Dose: 100 mg Documented By: BENY Nitroglycerin (Nitroglycerin 2% Ointment 30gm Tube) 1 inch EXT NOW STA Stop: 02/25/24 04:45 Last Admin: 02/25/24 04:57 Dose: 1 inch Documented By: SANDRA Discharge Plan Visit Data Chief Complaint: Chest Pain Stated Complaint: chest pain ED Provider: Rosmery Quijano Discharge Problem: Chest pain, Leukocytosis Patient Disposition: Admitted As Inpatient Discharge Instructions Interventions: ED Discharge Assessment Last Done: 02/25/24 07:55
[2024-02-25] MEDS: FAMOTIDINE 20MG IV PUSH 20 MG/5 ML SYR IV STA (04:57)
[2024-02-25] MEDS: NITROGLYCERIN 2% OINTMENT 30GM TUBE EXT STA (04:57)
[2024-02-25] MEDS: ACETAMINOPHEN 1,000 MG/100 ML VIAL IV STA (04:58)
--- OUTSIDE RECORDS SUMMARY | 2024-02-25 05:47 | External Medical Summary | Summary of Care ---
Author Name Unknown Organization [facility] Address [address] [place] [address] Phone [phone] Care Team Providers Care Jockey Room Custodian Name Role Phone Luther Harrison MD Primary Care Provider [phone] Encounter Details Date Type Department Care Team (Latest Contact Info) Description 02/11/2024 3:09 PM EDT - 02/11/2024 11:59 PM EDT Hospital Encounter Radiology Film File [address], [place] [id number] Arrived Discharge Disposition: Home - Self Care Allergies Active Allergy Reactions Criticality Noted Date Comments Lisinopril Cough Medium 02/19/2013 documented as of this encounter (statuses as of 02/12/2024) Medications Medication Sig Dispensed Refills Start Date End Date Status ASPIRIN 81 MG PO CHEW One pill by mouth once a day with food 100 Tab 5 03/28/2011 Active Levothyroxine Sodium 25 MCG Oral Tablet (Levoxyl)Indications: Acquired hypothyroidism Take 1 Tablet by mouth in the morning. (at least 30 min prior to breakfast or other meds). 90 Tablet 3 04/27/2023 Active Ezetimibe 10 MG Oral Tablet (Zetia)Indications:Dy slipidemia, goal LDL below 70 Take 1 Tablet by mouth in the morning. 90 Tablet 3 08/20/2023 Active Nitroglycerin 0.4 MG Sublingual Tablet Sublingual (Nitrostat)Indication s:Coronary artery disease involving [place] coronary artery of [place] heart without angina pectoris place 1 tablet under the tongue every 5 minutes for UP TO 3 doses if needed for angina as directed by prescriber 25 Tablet 1 12/10/2023 Active Losartan Potassium 25 MG Oral Tablet (Cozaar)Indications:C oronary artery disease involving [place] coronary artery of [place] heart without angina pectoris,S/P CABG x 2,Hypertensive kidney disease with stage 3a chronic kidney disease (HCC) TAKE ONE TABLET BY MOUTH EVERY MORNING 90 Tablet 3 01/29/2024 Active Atorvastatin Calcium 80 MG Oral Tablet (Lipitor) TAKE ONE TABLET BY MOUTH EVERY MORNING 90 Tablet 3 01/29/2024 Active Metoprolol Succinate ER 100 MG Oral Tablet Extended Release 24 Hour (toPROL XL) TAKE ONE TABLET BY MOUTH EVERY MORNING 90 Tablet 3 01/29/2024 Active documented as of this encounter (statuses as of 02/12/2024) Active Problems Problem Noted Date Diagnosed Date Hypertensive kidney disease with stage 3a chronic kidney disease 12/10/2023 Acquired hypothyroidism 04/27/2023 HTN, goal below 140/90 06/19/2017 History of chronic rhinitis 04/05/2017 Positional sleep apnea 01/15/2017 Overview: PSG 01/02/17 - AHI 7 (non supine 1/hr) Positional treatment recommended Vitamin D deficiency 09/04/2013 Dyslipidemia, goal LDL below 70 07/15/2012 Aortocoronary bypass status 05/22/2012 S/P CABG x 2 05/13/2012 CAD (coronary artery disease) 04/29/2012 Overweight, BMI 28.51 05/29/11 05/29/2011 post bronchitis tussive symdrome 06/13/2009 ADVANCE DIRECTIVE INFORMATION 05/30/2006 Overview: No advance directive PROPHYLACTIC MEASURE NEC 08/07/2004 documented as of this encounter (statuses as of 02/12/2024) Resolved Problems Problem Noted Date Diagnosed Date Resolved Date Chronic kidney disease, stage 3a 12/13/2020 11/12/2022 Overview: Per CKD protocol Hypertensive kidney disease with stage 3a chronic kidney disease 06/13/2020 11/12/2022 Overview: Per CKD protocol Hypertensive kidney disease with chronic kidney disease stage III 10/01/2018 06/16/2020 Overview: Per CKD protocol History of pertussis 12/03/2017 019 History of inguinal hernia 04/05/2017 0 10/01/2018 History of colon polyps 04/05/201709/06 Kidney disease, chronic, sta ge III (GFR 30-59 ml/min) 12/10/2016 10/14/2018 Overview: Per CKD protocol #1 Benign neoplasm of colon 10/01/201208/2016 Overview: hyperplastic polyps-repeat c scope in 5 yrs Rhinitis 07/15/2012 04/05/2017 Unstable angina 04/28/2012 07/15/2012 Overview: About 2 weeks dyspnea prior to being awakened from sleep by substernal chest pain (28 Apr 2012). Failed nuclear medicine stress test, then cath revealing 3 vessel CAD (28 Apr 2012) and transfer to [facility]. R/O CELLULITIS OF LEG 05/29/20112016 FINGER INJURY, RIGHT RING 05/30/2006 TENDONITIS, RIGHT RING 05/30/200604/05 UNILAT INGUINAL HERNIA 04/05 Overview: right,mild documented as of this encounter (statuses as of 02/12/2024) Immunizations Name Administration Dates Next Due COVID-19 mRNA, LNP-s, No Pre serve, 2-Dose Series (Moderna) 05/01/2021,09/29/2020,09/01/2020 COVID-19, MRNA-LNP, 23-24, P F, 50 MCG/0.5 mL, 12 YRS AND ABOVE, IM (MODERNA-Spikevax) 06/19/2023 PPD 03/26/2013 Pneumococcal Conjugate Vacc, 13 Valent (Prevnar) 03/24/2015 Pneumococcal Polysaccharide PPV23 (Pneumovax) 04/05/2017,05/19/2012 RSV Vac., Recomb, Adjuvant, PF,0.5 Ml (Arexvy) 07/11/2023 Seasonal Influenza, PF, 6 M & above, IM , (FluLaval or Fluzone) 06/14/2021,05/19/2020,05/01/2019,06/05 Seasonal Influenza, Quadriva lent Hd (Fluzone Hd) 06/19/2023,04/21/2022 Seasonal Influenza, Split, I IV3, With Preserve, Inj 05/28/2013,05/19/2012,05/03/2011,05/17,06/10/2006 TD, Preservative Free 10/06/2018 TDAP, Age 7 and older, IM (Adacel) 05/17/2009 Varicella Zoster Vaccine (Adult) 06/18/2013 Zoster Vaccine Recombinant (Shingrix) 09/04/2023 ,06/19/2023 documented as of this encounter Social History Tobacco Use Types Packs/Day Years Used Date Smoking Tobacco: Former Cigarettes 1.5 30 0 01/03/1973 - 01/03/2003 Passive Smoke Exposure: Past Smokeless Tobacco: Never Alcohol Use Standard Drinks/Week Comments Yes 10 (1 standard drink = 0.6 oz pure alcohol) beer, weekends - 6 pack total/wkend// 2 drinks per day PHQ-2 Answer Date Recorded PHQ Adult Total Score 0 12/10/2023 Hunger Vital Sign Answer Date Recorded Within the past 12 months, y ou worried that your food would run out before you got the money to buy more. Patient declined Within the past 12 months, t he food you bought just didn't last and you didn't have money to get more. Patient declined 02/2024 Childcare Answer Date Recorded Do you feel overwhelmed with taking care of a child, family member or friend? No 12/10/2023 Does your family need help f inding childcare? (Household - for ages 0-17 years) Not on file 12/10/2023 Clothing Answer Date Recorded Have you been unable to get clothing when it was really needed? No 12/10/2023 Is your family able to get c lothes or diapers when needed? (Household - for ages 0-17 years) Not on file 12/10/2023 Personal Safety Answer Date Recorded Do you feel unsafe or have concerns for your saf ety? No 12/10/2023 Do you have concerns for you r family's safety? (Household - for ages 0-17 years) Not on file 12/10/2023 Utilities Answer Date Recorded Do you have trouble paying y our heating, water, or electric bill? No 12/10/2023 Is your family able to pay t he heat, water, or electric bill? (Household - for ages 0-17 years) Not on file 12/10/2023 Does your family have access to good internet? (Household - for ages 0-17 years) Not on file 12/10/2023 Employment Status Answer Date Recorded Are you unemployed or without regular income? No 12/10/2023 Does the household have a re gular source of income? (Household - for ages 0-17 years) Not on file 12/10/2023 Social Connections Answer Date Recorded How often do you feel lonely or isolated from th ose around you? Never 12/10/2023 Financial Resource Strain Answer Date R ecorded Do you have any trouble payi ng for your medications, or do you think you might in the future? No 12/10/2023 Does your family have troubl e paying for medicine? (Household - for ages 0-17 years) Not on file 12/10/2023 Transportation Needs Answer Date Record ed READ ONLY Do you have troubl e getting a ride to medical visits or work? Never True 12/10/2023 Does your family have a hard time getting a ride to doctors visits? (Household - for ages 0-17 years) Not on file 12/10/2023 Has lack of transportation k ept you from medical appointments, meetings, work, or from getting things needed for daily living? Check all that apply. (Adult - for ages 18 years and over) Not on file 12/10/2023 Do you (or your family) have trouble finding or paying for a ride (transportation)? (Household - for ages 0-17 years) Not on file 12/10/2023 Housing Stability Answer Date Recorded Do you currently live in a s helter or have no steady place to sleep at night? No 12/10/2023 READ ONLY Do you think you a re at risk of becoming homeless? No 12/10/2023 Does your family worry about paying for your home or becoming homeless? (Household - for ages 0-17 years) Not on file 0 12/10/2023 Are you homeless or worried that you might be in the future? (Adult - for ages 18 years and over) Not on file Are you (or your family) miki eless or worried that you might be in the future? (Household - for ages 0-17 years) Not on file Food Insecurity Answer Date Recorded Do you need food for this week? No 12/10/2023 Are you able to get enough f ood for your family? (Household - for ages 0-17 years) Not on file 12/10/2023 Does your family need food t his week? (Household - for ages 0-17 years) Not on file 12/10/2023 Do you always have enough fo od for your family? (Household - for ages 0-17 years) Not on file 12/10/2023 Sex and Gender Information Value Date Recorded Sex Assigned at Male 10/21/2019 1:57 PM EDT Gender Identity Male 10/21/2019 1:57 PM EDT Sexual Orientation Straight 10/21/2019 1: 57 PM EDT Job Start Date Occupation Industry Not on file Not on file Not on file documented as of this encounter Plan of Treatment Upcoming Encounters Date Type Department Care Team (Late st Contact Info) Description 12/11/2024 7:40 AM EDT Office Visit [facility] [address] [place] [address] Luther Harrison MD [address], [place] [id number] Scheduled Procedures Name Priority Associated Diagnoses Date/Ti me COLONOSCOPY FLEXIBLE PROXIMAL DIAGNOSTIC Recall History of colon polyps Health Maintenance Due Date Last Done Comments Cologuard 1994 Sigmoidoscopy 1994 Fecal Occult Blood Test 06/13/2010 06/13/2009 CKD HGB USE SMARTSET 74451 10/24/202210/24, 10/25/2020, 10/21/2019, Additional history exists Colonoscopy 11/24/2022 11/24/2020, 11/04, 11/14/2017, Additional history exists Colorectal Cancer Screening 11/24/2022 COVID-19 Vaccine ( season) 2023 06/19/2023, 05/01/2021, 09/29/2020, Additional history exists Influenza Vaccine (FLU shot) (#1) 2024 06/19/2023, 04/21/2022, 06/14/2021, Additional history exists GFR 06/11/2024 12/10/2023, 01/2023, 10/24/2021, Additional history exists TSH 08/16/2024 08/16/2023, 04/05, 10/08/2022, Additional history exists Albumin/Creatinine Ratio 12/09/2024 024, 10/24/2021, 10/25/2020, Additional history exists CKD PHOS USE SMARTSET 59392 12/09/20240 02/2024, 10/24/2021, 10/25/2020, Additional history exists Depression Screening 12/09/2024 12/10/2023 DTaP,Tdap,and Td Vaccines (3 - Td or Tdap) 10/06/2028 10/06/2018, 05/17/2009, 04/05/1999 Pneumococcal Vaccine: 65+ Years Completed 04/05/2017, 03/24/2015, 05/19/2012 RETIRED - COLONOSCOPY-EVERY 2 YRS AGES 18-100 Discontinued 11/24/2020, 11/24/2020, 11/14/2017, Additional history exists Zoster Vaccines Completed 09/04/2023, 06/05, 06/18/2013 AAA Screening Completed 11/20/2023, 11/08/2016 HPV (Gardasil) Vaccine Aged Out No lo nger eligible based on patient's age to complete this topic Hepatitis B Vaccine Aged Out No longe r eligible based on patient's age to complete this topic MENINGOCOCCAL (MENACTRA/MENVEO) Aged Out No longer eligible based on patient's age to complete this topic documented as of this encounter Medical Devices Implanted Type Area Oil Well Directional Surveyor Device Identifier Shelf Expiration Date Model / Serial / Lot Sut Steel 6 [id number] - [id number] Implanted:Qty: 6 on 04/30/2012 at OR [facility] N/A: Chest DO NOT USE 09/03/2016 [id number] / / [id number] Graft Marker Coronary - [id number] Implanted:Qty: 1 on 04/30/2012 at [facility] N/A: Heart VM CARDIO VASCULAR 01/01/2013 [id number] / / [id number] documented as of this encounter Procedures Procedure Name Priority Date/Time Associated Diagnosis Comments DERM EXAM - DERM (IMAGES ONLY, NO REPORT) Routine 02/11/2024 3:09 PM EDT History of nonmelanoma skin cancer Screening exam for skin cancer documented in this encounter Results * DERM EXAM - DERM (IMAGES ONLY, NO REPORT) (02/11/2024 3:09 PM EDT) Narrative Scheduling, Silent - 02/11/2024 3:09 PM EDT This is an imaging study not interpreted or resulted by a [employer] or e|tab contracted radiologist. Camille Lambert PA-C RADIOLOGY ( [facility]) documented in this encounter Advance Directives * Full Code (Latest Code Status on File) Date Activated Date Inactivated Comments 04/30/2012 10:02 PM 05/05/2012 3:46 PM This order reflects the patients wishes and were consensually agreed upon. * Full Code Date Activated Date Inactivated Comments 04/28/2012 3:05 PM 04/30/2012 10:02 PM This order reflects the patients wishes and were consensually agreed upon. Question Answer Comments Discussion of Advance Directives occurred with: Patient Does the patient have a Living Will? No Does the patient have Health Care Power of Attor fabricio? No Care Teams Jockey Room Custodian Relationship Specialty Start Date End Date Luther Harrison MD [address] [place] [address] PCP - General 03/19/1996 documented as of this encounter"
--- OUTSIDE RECORDS SUMMARY | 2024-02-25 05:47 | External Medical Summary | Summary of Care ---
Author Name Unknown Organization [facility] Address [address] [place] [address] Phone [phone] Care Team Providers Care Peripheral Edp Equipment Operator Name Role Phone Jason Harrison MD Primary Care Provider [phone] Reason for Visit * Reason Comments eRx-Medication Refill Encounter Details Date Type Department Care Team (Late st Contact Info) Description 01/29/2024 Refill [facility] [address] [place] [address] Jason Harrison MD [address] [place] [address] Coronary artery disease involving [place] coronary artery of [place] heart without angina pectoris; S/P CABG x 2; Hypertensive kidney disease with stage 3a chronic kidney disease (HCC) Allergies Active Allergy Reactions Criticality Noted Date Comments Lisinopril Cough Medium 02/19/2013 documented as of this encounter (statuses as of 01/29/2024) Medications Medication Sig Dispensed Refills Start Date End Date Status ASPIRIN 81 MG PO CHEW One pill by mouth once a day with food 100 Tab 5 03/28/2011 Active Levothyroxine Sodium 25 MCG Oral Tablet (Levoxyl)Indication s:Acquired hypothyroidism Take 1 Tablet by mouth in the morning. (at least 30 min prior to breakfast or other meds). 90 Tablet 3 04/27/2023 Active Ezetimibe 10 MG Oral Tablet (Zetia)Indications: Dyslipidemia, goal LDL below 70 Take 1 Tablet by mouth in the morning. 90 Tablet 3 08/20/2023 Active Nitroglycerin 0.4 MG Sublingual Tablet Sublingual (Nitrostat)Indicati ons:Coronary artery disease involving [place] coronary artery of [place] heart without angina pectoris place 1 tablet under the tongue every 5 minutes for UP TO 3 doses if needed for angina as directed by prescriber 25 Tablet 1 12/10/2023 Active Losartan Potassium 25 MG Oral Tablet (Cozaar)Indications :Coronary artery disease involving [place] coronary artery of [place] heart without angina pectoris,S/P CABG x 2,Hypertensive [...] TABLET BY MOUTH EVERY MORNING 90 Tablet 1 08/06/2023 01/29/20 24 Discontinued Losartan Potassium 25 MG Oral Tablet (Cozaar)Indications :Coronary artery disease involving [place] coronary artery of [place] heart without angina pectoris,S/P CABG x 2,Hypertensive kidney disease with stage 3a chronic kidney disease (HCC) TAKE ONE TABLET BY MOUTH EVERY MORNING 90 Tablet 1 08/06/2023 01/29/20 24 Discontinued Atorvastatin Calcium 80 MG Oral Tablet (Lipitor) TAKE ONE TABLET BY MOUTH EVERY MORNING 90 Tablet 1 08/06/2023 01/29/20 24 Discontinued documented as of this encounter (statuses as of 01/29/2024) Active Problems Problem Noted Date Diagnosed Date [...] as of this encounter (statuses as of 01/29/2024) Resolved Problems Problem Noted Date Diagnosed Date [...] as of this encounter (statuses as of 01/29/2024) Immunizations Name Administration Dates Next Due COVID-19 [...] on file documented as of this encounter Miscellaneous Notes * Telephone Encounter - Heather Fisher [facility] - 01/29/2024 12:03 PM EDTSigned Prescriptions: Disp Refills Losartan Potassium 25 MG Oral Tablet (Coza*90 Tab*3 Sig: TAKE ONE TABLET BY MOUTH EVERY MORNINGAuthorizing Provider: JASON HARRISON User: HEATHER FISHER Atorvastatin Calcium 80 MG Oral Tablet (Li*90 Tab*3 Sig: TAKE ONE TABLET BY MOUTH EVERY MORNINGAuthorizing Provider: JAOSN HARRISON User: HEATHER FISHER Metoprolol Succinate ER 100 MG Oral Tablet*90 Tab*3 Sig: TAKE ONE TABLET BY MOUTH EVERY MORNINGAuthorizing Provider: JASON HARRISON User: HEATHER FISHER documented in this encounter Plan of Treatment Upcoming Encounters Date Type Department Care Team (Late st Contact Info) Description 02/11/2024 2:50 PM EDT Office Visit Dermatology [facility] [address] [place] [address] Camille Lambert PA-C [address] [place] [address] 12/11/2024 7:40 AM EDT Office Visit [facility] [address] [place] [id number] Jason Harrison MD [address] [place] [address] Scheduled Procedures Name Priority Associated Diagnoses Date/Ti me COLONOSCOPY FLEXIBLE PROXIMAL DIAGNOSTIC Recall History of colon polyps Health Maintenance Due Date Last Done Comments Cologuard 1994 Sigmoidoscopy 1994 Fecal Occult Blood Test 06/13/2010 06/13/2009 CKD HGB USE SMARTSET 80866 10/24/202210/24, 10/25/2020, 10/21/2019, Additional history exists Colonoscopy 11/24/2022 11/24/2020, 11/04, 11/14/2017, Additional history exists Colorectal Cancer Screening 11/24/2022 COVID-19 Vaccine ( season) 2023 06/19/2023, 05/01/2021, 09/29/2020, Additional history exists GFR 06/11/2024 12/10/2023, 01/2023, 10/24/2021, Additional history exists TSH 08/16/2024 08/16/2023, 04/05, 10/08/2022, Additional history exists Albumin/Creatinine Ratio 12/09/2024 024, 10/24/2021, 10/25/2020, Additional history exists CKD PHOS USE SMARTSET 42552 12/09/202402/2024, 10/24/2021, 10/25/2020, Additional history exists Depression Screening 12/09/2024 12/10/2023 DTaP,Tdap,and Td Vaccines (3 - Td or Tdap) 10/06/2028 10/06/2018, 05/17/2009, 04/05/1999 Pneumococcal Vaccine: 65+ Years Completed 04/05/2017, 03/24/2015, 05/19/2012 RETIRED - COLONOSCOPY-EVERY 2 YRS AGES 18-100 Discontinued 11/24/2020, 11/24/2020, 11/14/2017, Additional history exists Influenza Vaccine (FLU shot) Completed 06/19/2023, 04/21/2022, 06/14/2021, Additional history exists Zoster Vaccines Completed 09/04/2023, 06/05, 06/18/2013 AAA Screening Completed 11/20/2023, 11/08/2016 GARDASIL-HPV IMMUNIZATION SERIES Aged Out No longer eligible based on patient's age to complete this topic Hepatitis B Aged Out No longer eligi ble based on patient's age to complete this topic MENINGOCOCCAL (MENACTRA/MENVEO) Aged Out No longer eligible based on patient's age to complete this topic documented as of this encounter Medical Devices Implanted Type Area Pipe Coverer Device Identifier Shelf Expiration Date Model / Serial / Lot Sut [place] 6 M654g - [id number] Implanted:Qty: 6 on 04/30/2012 at OR [facility] N/A: Chest DO NOT USE 09/03/2016 [id number] / / [id number] Graft Marker Coronary - [id number] Implanted:Qty: 1 on 04/30/2012 at OR [facility] N/A: Heart VM CARDIO VASCULAR 01/01/2013 [id number] / / [id number] documented as of this encounter Visit Diagnoses Diagnosis Coronary artery disease involving [place] coronary artery of [place] heart without angina pectoris S/P CABG x 2 Postsurgical aortocoronary bypass status Hypertensive kidney disease with stage 3a chronic kidney disease (HCC) documented in this encounter Advance Directives * [...] Power of Attor fabricio? No Care Teams Peripheral Edp Equipment Operator Relationship Specialty Start Date End Date Jason Harrison MD [address] [place] [address] PCP - General 03/19/1996 documented as of this encounter
--- OUTSIDE RECORDS SUMMARY | 2024-02-25 05:47 | External Medical Summary | Summary of Care ---
Author Name Unknown Organization [facility] Address [address] [place] [address] Phone [phone] Care Team Providers Care Math Coach Name Role Phone Luther Harrison MD Primary Care Provider Reason for Visit * Reason Comments Physical-Exam Pt here today for a yearly physical Encounter Details Date Type Department Care Team (Late st Contact Info) Description 12/10/2023 7:40 AM EDT Office Visit [facility] [address] [place] [address] Luther Harrison MD [address] [place] [address] HTN, goal below 140/90*; Hypertensive kidney disease with stage 3a chronic kidney disease (HCC); Acquired hypothyroidism; Coronary artery disease involving tununak coronary artery of tununak heart without angina pectoris; Dyslipidemia, goal LDL below 70 Allergies Active Allergy Reactions Criticality Noted Date Comments Lisinopril Cough Medium 02/19/2013 documented as of this encounter (statuses as of 12/10/2023) Medications Medication Sig Dispensed Refills Start Date End Date Status ASPIRIN 81 MG PO CHEW One pill by mouth once a day with food 100 Tab 5 03/28/2011 Active Levothyroxine Sodium 25 MCG Oral Tablet (Levoxyl)Indication s:Acquired hypothyroidism Take 1 Tablet by mouth in the morning. (at least 30 min prior to breakfast or other meds). 90 Tablet 3 04/27/2023 Active Metoprolol Succinate ER 100 MG Oral Tablet Extended Release 24 Hour (toPROL XL) TAKE ONE TABLET BY MOUTH EVERY MORNING 90 Tablet 1 08/06/2023 Active Losartan Potassium 25 MG Oral Tablet (Cozaar)Indications :Coronary artery disease involving tunun[place] coronary artery of tunun[place] heart without angina pectoris,S/P CABG x 2,Hypertensive kidney disease with stage 3a chronic kidney disease (HCC) TAKE ONE TABLET BY MOUTH EVERY MORNING 90 Tablet 1 08/06/2023 Active Atorvastatin Calcium 80 MG Oral Tablet (Lipitor) TAKE ONE TABLET BY MOUTH EVERY MORNING 90 Tablet 1 08/06/2023 Active Azithromycin 250 MG Oral Tablet (Zithromax Z-Slava)Indications:B ronchitis, complicated Take two tablets by mouth on first day, then 1 tablet daily until gone 6 Tablet 0 08/13/2023 Active Additional Information Patient not taking.Reported on 12/10/2023 Ezetimibe 10 MG Oral Tablet (Zetia)Indications: Dyslipidemia, goal LDL below 70 Take 1 Tablet by mouth in the morning. 90 Tablet 3 08/20/2023 Active Promethazine-DM 6.25-15 MG/5ML Oral SyrupIndications:Up per respiratory tract infection, unspecified type Take 5 mL by mouth 4 times a day as needed for Cough. 120 mL 1 09/12/2023 Active Additional Information Patient not taking.Reported on 12/10/2023 Nitroglycerin 0.4 MG Sublingual Tablet Sublingual (Nitrostat)Indicati ons:Coronary artery disease involving tunun[place] coronary artery of tun[place] heart without angina pectoris place 1 tablet under the tongue every 5 minutes for UP TO 3 doses if needed for angina as directed by prescriber 25 Tablet 1 12/10/2023 Active Nitroglycerin 0.4 MG Sublingual Tablet Sublingual (Nitrostat)Indicati ons:CAD (coronary artery disease) place 1 tablet under the tongue every 5 minutes for UP TO 3 doses if needed for angina as directed by prescriber 25 Tablet 1 11/29/2021 Discontinue d(Refill) documented as of this encounter (statuses as of 12/10/2023) Active Problems Problem Noted Date Diagnosed Date [...] as of this encounter (statuses as of 12/10/2023) Resolved Problems Problem Noted Date Diagnosed Date [...] CAD (28 Apr 2012) and transfer to [facility]. R/O CELLULITIS OF LEG 05/29/20112016 FINGER INJURY, RIGHT RING 05/30/2006 TENDONITIS, RIGHT RING 05/30/200604/05 UNILAT INGUINAL HERNIA 04/05 Overview: right,mild documented as of this encounter (statuses as of 12/10/2023) Immunizations Name Administration Dates Next Due COVID-19 [...] Preserve, Inj 05/28/2013,05/19/2012,05/03/2011,05/17,06/10/2006 TD, Preservative Free 10/06/2018 TDAP (age 11 and older)(Adacel) 05/17/2009 Varicella Zoster Vaccine (Adult) 06/18/2013 Zoster Vaccine Recombinant (Shingrix) 09/04/2023 ,06/19/2023 documented as of this encounter Social History Tobacco Use Types Packs/Day Years Used Date Smoking Tobacco: Former Cigarettes 1.5 30 0 01/03/1973 - 01/03/2003 Passive Smoke Exposure: Past Smokeless Tobacco: Never Tobacco Cessation:Counseling Given: Not Answered Alcohol Use Standard Drinks/Week Comments Yes 10 (1 standard drink = 0.6 oz pure alcohol) beer, weekends - 6 pack total/wkend// 2 drinks per day PHQ-2 Answer Date Recorded PHQ-2 Score 1 10/07/2019 Hunger Vital Sign Answer Date Recorded Worried About Running Out of Food in the Last Ye ar Never true 10/21/2019 Ran Out of Food in the Last Year Never true 10/21/2019 Sex and Gender Information Value Date Recorded Sex Assigned at Male 10/21/2019 1:57 PM EDT Gender Identity Male 10/21/2019 1:57 PM EDT Sexual Orientation Straight 10/21/2019 1: 57 PM EDT Job Start Date Occupation Industry Not on file Not on file Not on file documented as of this encounter Last Filed Vital Signs Vital Sign Reading Time Taken Comments Blood Pressure 112/60 12/10/2023 7:31 AM EDT Pulse 56 12/10/2023 7:31 AM EDT Temperature 36.4 C (97.5 F) 12/10/2023 7:31 AM ED T Respiratory Rate 16 12/10/2023 7:31 AM EDT Oxygen Saturation 94% 12/10/2023 7:31 AM EDT Inhaled Oxygen Concentration - - Weight 86.9 kg (191 lb 9.6 oz) 12/10/2023 7:31 A M EDT Height 172.1 cm (5' 7.75") 12/10/2023 7:31 AM ED T Body Mass Index 29.35 12/10/2023 7:31 AM EDT documented in this encounter Progress Notes * Luther Harrison MD - 12/10/2023 7:40 AM EDT Subjective: Kale Duque is a 73 year old male. Chief Complaint Patient presents with Physical-Exam Pt here today for a yearly physical HPI: 73-year-old seen today for annual physical Um. Past medical history that includes coronary artery disease status post two-vessel coronary artery bypass grafting. He does continue to follow with Cardiology although notes he has not seen Dr. Brambila in a couple years time-sees 1 of the physician assistance. Also history of hypertension and mild hypothyroidism. Last thyroid testing was in August with a normal TSH. History of chronic kidney disease stage 3 although it should be noted that his renal function testing a year ago Um showed GFR above 60. He has been bothered with bilateral altered sensation with pins and needles/paresthesias in the feet. He does not have a history diabetes. He has been tested for B12 and folic acid levels which have been normal. He was found to be hypothyroid-now on replacement. He has not bothered with exertional chest pain or shortness of breath. He tries to get some walkingin whether it is golfing least once a week or other activity. New line he has a chronic cough that has not changed in years. Does have a history of documented pertussis. Nocturia times 0-1. No difficulty with bowels No overwhelming arthritic joint that limits what he wants to do. 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 Overweight, BMI 28.51 05/29/11 E66.3 CAD (coronary artery disease) I25.10 S/P CABG x 2 Z95.1 Aortocoronary bypass status Z95.1 Dyslipidemia, goal LDL below 70 E78.5 Vitamin D deficiency E55.9 Positional sleep apnea G47.39 History of chronic rhinitis Z87.09 HTN, goal below 140/90 I10 Acquired hypothyroidism E03.9 Hypertensive kidney disease with stage 3a chronic kidney disease (HCC) I12.9, N18.31 Current Outpatient Medications Medication Sig Dispense Refill ASPIRIN 81 MG PO CHEW One pill by mouth once a day with food 100 Tab 5 Nitroglycerin 0.4 MG Sublingual Tablet Sublingual (Nitrostat) place 1 tablet under the tongue every5 minutes for UP TO 3 doses if needed for angina as directed by prescriber 25 Tablet 1 Levothyroxine Sodium 25 MCG Oral Tablet (Levoxyl) Take 1 Tablet by mouth in the morning. (at least 30 min prior to breakfast or other meds). 90 Tablet 3 Metoprolol Succinate ER 100 MG Oral Tablet Extended Release 24 Hour (toPROL XL) TAKE ONE TABLET BY MOUTH EVERY MORNING 90 Tablet 1 Losartan Potassium 25 MG Oral Tablet (Cozaar) TAKE ONE TABLET BY MOUTH EVERY MORNING 90 Tablet 1 Atorvastatin Calcium 80 MG Oral Tablet (Lipitor) TAKE ONE TABLET BY MOUTH EVERY MORNING 90 Tablet 1 Ezetimibe 10 MG Oral Tablet (Zetia) Take 1 Tablet by mouth in the morning. 90 Tablet 3 Azithromycin 250 MG Oral Tablet (Zithromax Z-Slava) Take two tablets by mouth on first day, then 1 tablet daily until gone (Patient not taking: Reported on 12/10/2023) 6 Tablet 0 Promethazine-DM 6.25-15 MG/5ML Oral Syrup Take 5 mL by mouth 4 times a day as needed for Cough. (Patient not taking: Reported on 12/10/2023) 120 mL 1 No current facility-administered medications for this visit. Facility-Administered Medications Ordered in Other Visits Medication Dose Route Frequency Provider Last Rate Last Admin NORepinephrine intra-op only infusion Continuous PRN Landeros, Paula, SRNA 5 mcg/min at 04/30/122119 albumin, human 25 % inj Once PRN Landeros, Paula, SRNA 250 mL at 04/30/122148 Review of patient's allergies indicates: Allergen Reactions Lisinopril Cough Objective: BP 112/60 | Pulse 56 | Temp 36.4 C (97.5 F) (Infrared ) | Resp 16 | Ht 1.721 m (5' 7.75") | Wt 86.9 kg (191 lb 9.6 oz) | SpO2 94% | BMI 29.35 kg/m | BSA 2.04 m Physical Exam: CONST: alert, pleasant, no acute distress HEAD: normocephalic, atraumatic NECK: supple, soft, no adenopathy EARS: canals normal, TMs normal NARES: clear Eyes - PERRLA, EOM'I OROPHARYNX: clear, no swelling or erythema, moist CV: regular rate and rhythm, no murmur CHEST: clear to auscultation bilaterally, no rales or wheezing ABD: soft, non tender, non distended, no masses or hepatosplenomegaly EXT: no edema, no joint swelling or deformities, NEURO: AAOx3, no gross focal deficits, cerebellar signs normal, affect appropriate MENTAL STATUS: no evidence of thought disorder, no delusional thought, no evidence of paranoia, thought is non-tangential. SKIN: no rash or significant lesions ASSESSMENT/PLAN: HTN, goal below 140/90 (Primary)-controlled. Continue the combination of losartan metoprolol Hypertensive kidney disease with stage 3a chronic kidney disease (HCC)-see above. Check comprehensive metabolic panel as well as urine for microalbumin Acquired hypothyroidism-continue levothyroxine 25 mcg daily. Repeat TSH in a year CAD (coronary artery disease)-renewed his nitroglycerin as Um current bottle is probably 2 years old. Um hyperlipidemia-check lipid profile as he now is on a combination of atorvastatin 80 mg daily andZetia 10 mg daily. We have not check lipid profile on this combination as of yet. Routine health maintenance-patient did get RSV vaccine last July so he has instructed not to get that this fall. I did encouraged flu shot and he can decide whether to get COVID vaccine. Luther Harrison MD documented in this encounter Nursing Notes * Alondra Danielson LPN - 12/10/2023 7:28 AM EDT Chief Complaint Patient presents with Physical-Exam Pt here today for a yearly physical documented in this encounter Plan of Treatment Upcoming Encounters Date Type Department Care Team (Late st Contact Info) Description 01/23/2024 2:30 PM EDT Office Visit Dermatology [facility] [address] [facility] [place] [address] Ana Toussaint MD [address] [facility] [place] [address] 12/11/2024 7:40 AM EDT Office Visit [facility] [address] [place] [id number] Luther Harrison MD [address] [place] [address] Scheduled Orders Name Type Priority Associated Diagnoses Orde r Schedule COMPREHENSIVE METABOLIC PANEL Lab Routine HTN, goal below 140/90 Expected: 12/10/2023 (Approximate), Expires: 12/09/2024 LIPID PANEL WITH DIRECT LDL IF TG IS HIGH Lab Routine Dyslipidemia, goal LDL below 70 Expected: 12/10/2023, Expires: 12/09/2024 ALBUMIN / CREATININE RATIO, URINE Lab Routine HTN, goal below 140/90 Expected: 12/10/2023 (Approximate), Expires: 12/09/2024 Scheduled Procedures Name Priority Associated Diagnoses Date/Ti me COLONOSCOPY FLEXIBLE PROXIMAL DIAGNOSTIC Recall History of colon polyps Health Maintenance Due Date Last Done Comments Cologuard 1994 Sigmoidoscopy 1994 Fecal Occult Blood Test 06/13/2010 06/13/2009 Albumin/Creatinine Ratio 10/24/2022 022, 10/25/2020, 09/04/2019, Additional history exists Colonoscopy 11/24/2022 11/24/2020, 11/04, 11/14/2017, Additional history exists Colorectal Cancer Screening 11/24/2022 GFR 04/10/2023 10/08/2022, 10/04, 10/25/2020, Additional history exists TSH 08/16/2024 08/16/2023, 04/05, 10/08/2022, Additional history exists Depression Screening 12/09/2024 12/10/2023 DTaP,Tdap,and Td Vaccines (3 - Td or Tdap) 10/06/2028 10/06/2018, 05/17/2009, 04/05/1999 Pneumococcal Vaccine: 65+ Years Completed 04/05/2017, 03/24/2015, 05/19/2012 RETIRED - COLONOSCOPY-EVERY 2 YRS AGES 18-100 Discontinued 11/24/2020, 11/24/2020, 11/14/2017, Additional history exists COVID-19 Vaccine Completed 06/19/2023, , 09/29/2020, Additional history exists Influenza Vaccine (FLU [...] this encounter Medical Devices Implanted Type Area Auto [employer]ership Porter Device Identifier Shelf Expiration Date Model / Serial / Lot Sut Steel 6 [id number] - [id number] Implanted:Qty: 6 on 04/30/2012 at OR [facility] N/A: Chest DO NOT USE 09/03/2016 [id number] / / [id number] Graft Marker Coronary - [id number] Implanted:Qty: 1 on 04/30/2012 at OR [facility] N/A: Heart VM CARDIO VASCULAR 01/01/2013 [id number] / / [id number] documented as of this encounter Visit Diagnoses Diagnosis HTN, goal below 140/90- Primary Unspecified essential hypertension Hypertensive kidney disease with stage 3a chronic kidney disease (HCC) Acquired hypothyroidism Unspecified hypothyroidism Coronary artery disease involving tun[place] coronary artery of tunun[place] heart without angina pectoris Dyslipidemia, goal LDL below 70 Other and unspecified hyperlipidemia documented in this encounter Advance Directives Latest Code Status on File Code Status Date Activated Date Inactivated Comments Full Code 04/30/2012 10:02 PM 05/05/2012 3:46 PM This order reflects the patients wishes and were consensually agreed upon. Code Status History Code Status Date Activated Date Inactivated Comments Full Code 04/28/2012 3:05 PM 04/30/2012 10:02 PM This order reflects the patients wishes and were consensually agreed upon. Question Answer Comments Discussion of Advance Directives occurred with: Patient Does the patient have a Living Will? No Does the patient have Health Care Power of Cargo Bracer? No Care Teams Math Coach Relationship Specialty Start Date End Date Luther Harrison MD [address] [place] [address] PCP - General 03/19/1996 documented as of this encounter
--- OUTSIDE RECORDS SUMMARY | 2024-02-25 05:47 | External Medical Summary ---
Author Name Unknown Address Unknown Organization [id number]:LABORATORY [facility] - [address] [facility] [address] Laboratory Report Ordering Provider Test Date Status MEGA GOMEZ 12/10/2023 08:30:50 Final Observation Date Value Abnormality Reference (Units ) Status Triglyceride 12/10/2023 08:30:50 138 <=174 ( mg/dL) Final Triglyceride Reference Range s (mg/dL):
<150 Acceptable
150-174 Borderline high
175-499 High
>=500 Very high Cholesterol 12/10/2023 08:30:50 117 <200 (mg /dL) Final Total Cholesterol Reference Ranges (mg/dL):
<200 Desirable
200-239 Borderline high
>=240 High HDL 12/10/2023 08:30:50 35 Below low normal >39 (mg/dL) Final HDL Cholesterol Reference Ra nges (mg/dL):
>=60 High (Desirable)
<50 Low (Undesirable) For Females
<40 Low (Undesirable) For Males NON-HDL CHOLESTEROL 12/10/2023 08:30:50 82 <=159 (mg/dL) Final Non-HDL Cholesterol Referenc e Range (mg/dL):
<100 Target level for high risk ASCVD patient
<130 Optimal for general population
130-159 Near optimal for general population
160-189 Borderline High
190-219 High
>=220 Very High LDL, (calculated) 12/10/2023 08:30:50 54 <= 129 (mg/dL) Final LDL Cholesterol Reference Ra nges (mg/dL):
<70 Target level for high risk ASCVD patient
<100 Optimal for general population
100-129 Near optimal for general population
130-159 Borderline high
160-189 High
>=190 Very high Performing Location LABORATORY [facility] - [address] [facility] [address]
--- OUTSIDE RECORDS SUMMARY | 2024-02-25 05:47 | External Medical Summary ---
Author Name Unknown Address Unknown Organization [id number]:LABORATORY [facility] - [address] [place] [address] Laboratory Report Ordering Provider Test Date Status MEGA GOMEZ 12/10/2023 08:30:50 Final Observation Date Value Abnormality Reference (Units ) Status Phosphate 12/10/2023 08:30:50 3.6 2.5-4.8 (m g/dL) Final Performing Location LAB[facility]ATORY [facility] - [address] [place] [address]
--- OUTSIDE RECORDS SUMMARY | 2024-02-25 05:47 | External Medical Summary | Summary of Care ---
Author Name Unknown Organization [facility] Address [address] [place] [address] Phone [phone] Care Team Providers Care Chief Of Vital Statistics Name Role Phone Luther Harrison MD Primary Care Provider Reason for Visit * Reason Comments Acute Pt here today due to having a "nasty" cough Encounter Details Date Type Department Care Team (Late st Contact Info) Description 01/14/2024 4:00 PM EDT Office Visit [facility] [address] [place] [address] DecemberRamone MD [address] [place] [address] Bronchitis, complicated* Allergies Active Allergy Reactions Criticality Noted Date Comments Lisinopril Cough Medium 02/19/2013 documented as of this encounter (statuses as of 01/14/2024) Medications Medication Sig Dispensed Refills Start Date End Date Status ASPIRIN 81 MG PO CHEW One pill by mouth once a day with food 100 Tab 5 03/28/2011 Active Levothyroxine Sodium 25 MCG Oral Tablet (Levoxyl)Indications :Acquired hypothyroidism Take 1 Tablet by mouth in the morning. (at least 30 min prior to breakfast or other meds). 90 Tablet 3 04/27/2023 Active Metoprolol Succinate ER 100 MG Oral Tablet Extended Release 24 Hour (toPROL XL) TAKE ONE TABLET BY MOUTH EVERY MORNING 90 Tablet 1 08/06/2023 Active Losartan Potassium 25 MG Oral Tablet (Cozaar)Indications: Coronary artery disease involving [place] coronary artery of [place] heart without angina pectoris,S/P CABG x 2,Hypertensive kidney disease with stage 3a chronic kidney disease (HCC) TAKE ONE TABLET BY MOUTH EVERY MORNING 90 Tablet 1 08/06/2023 Active Atorvastatin Calcium 80 MG Oral Tablet (Lipitor) TAKE ONE TABLET BY MOUTH EVERY MORNING 90 Tablet 1 08/06/2023 Active Ezetimibe 10 MG Oral Tablet (Zetia)Indications:D yslipidemia, goal LDL below 70 Take 1 Tablet by mouth in the morning. 90 Tablet 3 08/20/2023 Active Nitroglycerin 0.4 MG Sublingual Tablet Sublingual (Nitrostat)Indicatio ns:Coronary artery disease involving [place] coronary artery of [place] heart without angina pectoris place 1 tablet under the tongue every 5 minutes for UP TO 3 doses if needed for angina as directed by prescriber 25 Tablet 1 12/10/2023 Active Azithromycin 250 MG Oral Tablet (Zithromax)Indicatio ns:Bronchitis, complicated Take 2 tabs by mouth on the first day, then 1 tab daily on days two through five 6 Tablet 01/14/2024 4 Active Azithromycin 250 MG Oral Tablet (Zithromax Z-Slava)Indications:Br onchitis, complicated Take two tablets by mouth on first day, then 1 tablet daily until gone 6 Tablet 08/13/2023 4 Discontinue d(Patient preference/ discontinua tion) Promethazine-DM 6.25-15 MG/5ML Oral SyrupIndications:Upp er respiratory tract infection, unspecified type Take 5 mL by mouth 4 times a day as needed for Cough. 120 mL 1 09/12/2023 4 Discontinue d(Patient preference/ discontinua tion) documented as of this encounter (statuses as of 01/14/2024) Active Problems Problem Noted Date Diagnosed Date [...] as of this encounter (statuses as of 01/14/2024) Resolved Problems Problem Noted Date Diagnosed Date [...] CAD (28 Apr 2012) and transfer to [facility]. R/O CELLULITIS OF LEG 05/29/20112016 FINGER INJURY, RIGHT RING 05/30/2006 TENDONITIS, RIGHT RING 05/30/200604/05 UNILAT INGUINAL HERNIA 04/05 Overview: right,mild documented as of this encounter (statuses as of 01/14/2024) Immunizations Name Administration Dates Next Due COVID-19 [...] money to get more. Patient declined 02/2024 Sex and Gender Information Value Date Recorded Sex Assigned at Male 10/21/2019 1:57 PM EDT Gender Identity Male 10/21/2019 1:57 PM EDT Sexual Orientation Straight 10/21/2019 1: 57 PM EDT Job Start Date Occupation Industry Not on file Not on file Not on file documented as of this encounter Last Filed Vital Signs Vital Sign Reading Time Taken Comments Blood Pressure 112/60 01/14/2024 3:47 PM EDT Pulse 59 01/14/2024 3:47 PM EDT Temperature 36.8 C (98.2 F) 01/14/2024 3:47 PM ED T Respiratory Rate 16 01/14/2024 3:47 PM EDT Oxygen Saturation 95% 01/14/2024 3:47 PM EDT Inhaled Oxygen Concentration - - Weight 88.4 kg (194 lb 12.8 oz) 01/14/2024 3:47 PM EDT Height - - Body Mass Index 29.84 12/10/2023 7:31 AM EDT documented in this encounter Progress Notes * Ramone Bell MD - 01/14/2024 4:05 PM EDT Images from the original note were not included. Assessment and Plan 1. Bronchitis, complicated Suspect bronchitis. This may be viral, however, given ongoing symptoms and coarse cough we will treat with azithromycin. Discussed supportive care with [id number] medications, hydration, humidified air. - Azithromycin 250 MG Oral Tablet (Zithromax); Take 2 tabs by mouth on the first day, then 1 tab daily on days two through five Dispense: 6 Tablet; Refill: 0 Wrap-Up Follow up as needed. History of Present Illness The patient is a 73 year old male with past medical history of hypothyroidism, CAD, HTN, CKD3a who presents for acute. 73-year-old male presents with one-week of symptoms. Symptoms are primarily a coarse cough present both day and night. He denies fevers. No nausea/ vomiting / diarrhea. No shortness of breath. He wasnot taken any medications other than his chronic meds. His has similar symptoms and was seen earlier today and given azithromycin and prednisone. Physical Exam Vitals: 01/14/24 1547 Temp: 36.8 C (98.2 F) Pulse: 59 Resp: 16 SpO2: 95% BP: 112/60 Physical Exam Physical Exam Vitals reviewed. Constitutional: General: He is not in acute distress. HENT: Right Ear: Tympanic membrane normal. There is no impacted cerumen. Left Ear: Tympanic membrane normal. There is no impacted cerumen. Cardiovascular: Rate and Rhythm: Normal rate and regular rhythm. Heart sounds: No murmur heard. Pulmonary: Effort: Pulmonary effort is normal. No respiratory distress. Breath sounds: Normal breath sounds. Comments: Coarse cough. Musculoskeletal: Cervical back: Neck supple. Lymphadenopathy: Cervical: No cervical adenopathy. Neurological: General: No focal deficit present. Mental Status: He is alert. Psychiatric: Mood and Affect: Mood normal. Behavior: Behavior normal. This note has been completed in part utilizing [employer] Speech Voice Recognition Software. Due to technical limitations of the software, grammatical errors, random word insertions, prounoun errors, and incomplete sentences may occur. Any formal questions or concerns about the content, text, or information contained within the body of this dictation should be directly addressed to the provider for clarification. documented in this encounter Nursing Notes * Alodnra Danielson LPN - 01/14/2024 3:45 PM EDT Chief Complaint Patient presents with Acute Pt here today due to having a "nasty" cough documented in this encounter Plan of Treatment Upcoming Encounters Date Type Department Care Team (Late st Contact Info) Description 02/11/2024 2:50 PM EDT Office Visit Dermatology [facility] [address] [facility] [place] [address] Camille Lambert PA-C [address] [facility] [place] [address] 12/11/2024 7:40 AM EDT Office Visit [facility] [address] [place] [address] Luther Harrison MD [address] [place] [address] Scheduled Procedures Name Priority Associated Diagnoses Date/Ti me COLONOSCOPY FLEXIBLE PROXIMAL DIAGNOSTIC Recall History of colon polyps Health Maintenance Due Date Last Done Comments Cologuard 1994 Sigmoidoscopy 1994 Fecal Occult Blood Test 06/13/2010 06/13/2009 CKD HGB USE SMARTSET 86279 10/24/202210/24, 10/25/2020, 10/21/2019, Additional history exists Colonoscopy 11/24/2022 11/24/2020, 11/04, 11/14/2017, Additional history exists Colorectal Cancer Screening 11/24/2022 COVID-19 Vaccine ( season) 2023 06/19/2023, 05/01/2021, 09/29/2020, Additional history exists GFR 06/11/2024 12/10/2023, 0301/2023, 10/24/2021, Additional history exists TSH 08/16/2024 08/16/2023, 04/05, 10/08/2022, Additional history exists Albumin/Creatinine Ratio 12/09/2024 024, 10/24/2021, 10/25/2020, Additional history exists CKD PHOS USE SMARTSET 57624 12/09/2024 05/0 02/2024, 10/24/2021, 10/25/2020, Additional history exists Depression [...] this encounter Medical Devices Implanted Type Area Snuff Box Finisher Device Identifier Shelf Expiration Date Model / Serial / Lot Sut Steel 6 [id number] - [id number] Implanted:Qty: 6 on 04/30/2012 at OR [facility] N/A: Chest DO NOT USE 09/03/2016 [id number] / / [id number] Graft Marker Coronary - [id number] Implanted:Qty: 1 on 04/30/2012 at OR [facility] N/A: Heart VM CARDIO VASCULAR 01/01/2013 [id number] / / [id number] documented as of this encounter Visit Diagnoses Diagnosis Bronchitis, complicated- Primary Bronchitis, not specified as acute or chronic documented in this encounter Advance Directives * [...] Power of Attor fabricio? No Care Teams Chief Of Vital Statistics Relationship Specialty Start Date End Date Luther Harrison MD [address] [place] [address] PCP - General 03/19/1996 documented as of this encounter
--- OUTSIDE RECORDS SUMMARY | 2024-02-25 05:47 | External Medical Summary ---
Author Name Unknown Address Unknown Organization [id number]:LABORATORY [facility] - [address] [facility] [place] [address] Laboratory Report Ordering Provider Test Date Status MEGA GOMEZ 12/10/2023 08:30:50 Final Observation Date Value Abnormality Reference (Units ) Status BUN 12/10/2023 08:30:50 17 6-20 (mg/dL) Final Creatinine 12/10/2023 08:30:50 1.2 0.6-1.2 (mg/dL) Final Glomerular filtration rate/1.73 sq M.predicted [Volume Rate/Area] in Serum, Plasma or Blood by Creatinine-based formula (CKD-EPI) 12/10/2023 08:30:50 65 >=60 (mL/min) Final eGFR is calculated based on the CKD-EPI 2020 equation Sodium 12/10/2023 08:30:50 140 135-146 (m mol/L) Final Potassium 12/10/2023 08:30:50 5.0 3.5-5.1 (m mol/L) Final Cl 12/10/2023 08:30:50 100 98-107 (mm ol/L) Final CO2 12/10/2023 08:30:50 28 22-32 (mmo l/L) Final Anion gap 12/10/2023 08:30:50 12 7-15 (mmol /L) Final Glucose 12/10/2023 08:30:50 103 70-120 (mg /dL) Final Albumin 12/10/2023 08:30:50 4.7 3.8-5.0 (g /dL) Final AST (Aspartate aminotransferase) 12/10/2023 08:30:50 31 10-50 (U/L) Fin al Alk Phos 12/10/2023 08:30:50 111 35-130 (U/ L) Final Bilirubin, Total 12/10/2023 08:30:50 1.6 Above high no rmal <=1.2 (mg/dL) Final Calcium 12/10/2023 08:30:50 9.9 8.4-10.2 ( mg/dL) Final Protein 12/10/2023 08:30:50 6.6 6.0-8.3 (g /dL) Final ALT (Alanine aminotransferase) 12/10/2023 08:30:50 52 Above high normal 10-50 (U/L) Final Performing Location LABORATORY [facility] - [address] [facility] [address]
--- OUTSIDE RECORDS SUMMARY | 2024-02-25 05:47 | External Medical Summary ---
Author Name Unknown Address Unknown Organization K01:LABORATORY [facility] - [address] [address] Laboratory Report Ordering Provider Test Date Status MEGA GOMEZ 12/10/2023 08:30:50 Final Normal: <30 mg/g creatinine< br/>High: 30-300 mg/g creatinine
Very High: >300 mg/g creatinine
Nephrotic: >2200 mg/g creatinine Observation Date Value Abnormality Reference (Units ) Status Albumin, Urine 12/10/2023 08:30:50 <1.20 (mg/dL) Final Creatinine, Urine 12/10/2023 08:30:50 172 (mg/dL) Final Albumin/Creatinine [Mass Ratio] in Urine 12/10/2023 08:30:50 <7 <30 (mg/g Creat) Final Performing Location LABORATORY [facility] - [address] [address]
--- OUTSIDE RECORDS SUMMARY | 2024-02-25 05:47 | External Medical Summary | Summary of Care ---
Author Name Unknown Organization [facility] Address [address] [place] [address] Phone [phone] Care Team Providers Care Keno Dealer Name Role Phone Luther Harrison MD Primary Care Provider Reason for Visit * Reason Comments Outpatient Testing Encounter Details Date Type Department Care Team (Late st Contact Info) Description 12/10/2023 8:30 AM EDT Laboratory Laboratory, [place] [address] [place] [address] [facility] [address] [place] [address] HTN, goal below 140/90; Dyslipidemia, goal LDL below 70 Allergies Active [...] Oral Tablet (Cozaar)Indications:C oronary artery disease involving [place] coronary artery of [place] heart without angina pectoris,S/P CABG x 2,Hypertensive kidney disease with stage 3a chronic kidney disease (HCC) TAKE ONE TABLET BY MOUTH EVERY MORNING 90 Tablet 1 08/06/2023 Active Atorvastatin Calcium 80 MG Oral Tablet (Lipitor) TAKE ONE TABLET BY MOUTH EVERY MORNING 90 Tablet 1 08/06/2023 Active Azithromycin 250 MG Oral Tablet (Zithromax Z-Slava)Indications:Bro nchitis, complicated Take two tablets by mouth on first day, then 1 tablet daily until gone 6 Tablet 0 08/13/2023 Active Additional Information Patient not taking.Reported on 12/10/2023 Ezetimibe 10 MG Oral Tablet (Zetia)Indications:Dy slipidemia, goal LDL below 70 Take 1 Tablet by mouth in the morning. 90 Tablet 3 08/20/2023 Active Promethazine-DM 6.25-15 MG/5ML Oral SyrupIndications:Uppe r respiratory tract infection, unspecified type Take 5 mL by mouth 4 times a day as needed for Cough. 120 mL 1 09/12/2023 Active Additional Information Patient not taking.Reported on 12/10/2023 Nitroglycerin 0.4 MG Sublingual Tablet Sublingual (Nitrostat)Indication s:Coronary artery disease involving [place] coronary artery of [place] heart without angina pectoris place 1 tablet under the tongue every 5 minutes for UP TO 3 doses if needed for angina as directed by prescriber 25 Tablet 1 12/10/2023 Active documented as of this encounter (statuses [...] CAD (28 Apr 2012) and transfer to [facility]. R/O CELLULITIS OF LEG 05/29/20112016 FINGER INJURY, [...] 01/23/2024 2:30 PM EDT [facility] [address] [facility] [place] [address] Ana Toussaint MD [address] [facility] [place] [address] 12/11/2024 7:40 AM EDT Office Visit [facility] [address] [place] [address] Luther Harrison MD [address], [place] [address] Pending Results Name Type Priority Associated Diagnoses Date /Time COMPREHENSIVE METABOLIC PANEL Lab Routine HTN, goal below 140/90 12/10/2023 8:30 AM EDT LIPID PANEL WITH DIRECT LDL IF TG IS HIGH Lab Routine Dyslipidemia, goal LDL below 70 12/10/2023 8:30 AM EDT ALBUMIN / CREATININE RATIO, URINE Lab Routine HTN, goal below 140/90 12/10/2023 8:30 AM EDT PHOSPHORUS Lab Routine HTN, goal below 140/90 12/10/2023 8:30 AM EDT Scheduled Procedures Name Priority Associated Diagnoses Date/Ti [...] this encounter Medical Devices Implanted Type Area Meat Cooler Device Identifier Shelf Expiration Date Model / Serial / Lot Sut Steel 6 M654g - [id number] Implanted:Qty: 6 on 04/30/2012 at [place] [facility] N/A: Chest DO NOT USE 09/03/2016 [id number] / / [id number] Graft Marker Coronary - [id number] Implanted:Qty: 1 on 04/30/2012 at OR [facility] N/A: Heart VM CARDIO VASCULAR 01/01/2013 [id number] / / [id number] documented as of this encounter Visit Diagnoses Diagnosis HTN, goal below 140/90 Unspecified essential hypertension Dyslipidemia, goal LDL below 70 Other and [...] the patient have Health Care Power of Sawmill Manager? No Care Teams Keno Dealer Relationship Specialty Start Date End Date Luther Harrison MD [address] [place] [address] PCP - General 03/19/1996 documented as of this encounter
--- OUTSIDE RECORDS SUMMARY | 2024-02-25 05:47 | External Medical Summary | Summary of Care ---
Author Name Unknown Organization [facility] Address [address] [place] [address] Phone [phone] Care Team Providers Care Dye House Worker Name Role Phone Luther Harrison MD Primary Care Provider [phone] Reason for Visit * Reason Onset Date Comments Test Results Biopsy 02/17/2024 Encounter Details Date Type Department Care Team (Late st Contact Info) Description 02/17/2024 Telephone Dermatology [facility] [address] [place] [address] Camille Lambert PA-C [address] [place] [address] Test Results Biopsy Allergies Active Allergy Reactions Criticality Noted Date Comments Lisinopril Cough Medium 02/19/2013 documented as of this encounter (statuses as of 02/17/2024) Medications Medication Sig Dispensed Refills Start Date [...] Tablet Sublingual (Nitrostat)Indication s:Coronary artery disease involving [place] coronary artery of [place] heart without angina pectoris place 1 tablet under the tongue every 5 minutes for UP TO 3 doses if needed for angina as directed by prescriber 25 Tablet 1 12/10/2023 Active Losartan Potassium 25 MG Oral Tablet (Cozaar)Indications:C oronary artery disease involving [place] coronary artery of [place] heart without angina pectoris,S/P CABG x 2,Hypertensive [...] as of this encounter (statuses as of 02/17/2024) Active Problems Problem Noted Date Diagnosed Date [...] as of this encounter (statuses as of 02/17/2024) Resolved Problems Problem Noted Date Diagnosed Date [...] CAD (28 Apr 2012) and transfer to [facility]. R/O CELLULITIS OF LEG 05/29/20112016 FINGER INJURY, RIGHT RING 05/30/2006 TENDONITIS, RIGHT RING 05/30/200604/05 UNILAT INGUINAL HERNIA 04/05 Overview: right,mild documented as of this encounter (statuses as of 02/17/2024) Immunizations Name Administration Dates Next Due COVID-19 [...] No 12/10/2023 Does the household have a [facility] source of income? (Household - for ages [...] encounter Miscellaneous Notes * Telephone Encounter - Nevaeh Rios LPN - 02/17/2024 4:05 PM EDT Left detailed message with negative results on personal voicemail. * Telephone Encounter - Nevaeh Rios LPN - 02/17/2024 4:03 PM EDT ----- Message from Camille Lambert sent at 02/17/2024 1:56 PM EDT ----- A. Skin, L forearm, shave: Hypertrophic actinic keratosis Please let pt know bx showed precancerous lesion from sun damage. No further tx needed at this time. Can monitor for recurrence at f/u appt. Please have him call if recurring sooner. documented in this encounter Plan of Treatment Upcoming Encounters Date Type Department Care Team (Late st Contact Info) Description 12/11/2024 7:40 AM EDT Office Visit [facility] [address] [place] [address] Luther Harrison MD [address] [place] [address] Scheduled Procedures Name Priority Associated Diagnoses Date/Ti me COLONOSCOPY FLEXIBLE PROXIMAL DIAGNOSTIC Recall History of colon polyps Health Maintenance Due Date Last Done Comments Cologuard 1994 Sigmoidoscopy 1994 Fecal Occult Blood Test 06/13/2010 06/13/2009 CKD HGB USE SMARTSET 82317 10/24/202210/24, 10/25/2020, 10/21/2019, Additional history exists Colonoscopy [...] Additional history exists CKD PHOS USE SMARTSET 63735 12/09/2024 05/0 02/2024, 10/24/2021, 10/25/2020, Additional history [...] this encounter Medical Devices Implanted Type Area Core Drill Operator Helper Device Identifier Shelf Expiration Date Model / Serial / Lot Sut Steel 6 M654g - [id number] Implanted:Qty: 6 on 04/30/[address] [facility] N/A: Chest DO NOT USE 09/03/2016 M654G / / [id number] Graft Marker Coronary - [id number] Implanted:Qty: 1 on 04/30/[address] [facility] N/A: Heart VM CARDIO VASCULAR 01/01/2013 [id number] / / [id number] documented as of this encounter Advance Directives * Full Code [...] Power of Attor fabricio? No Care Teams Dye House Worker Relationship Specialty Start Date End Date Luther Harrison MD [address] [place] [address] PCP - General 03/19/1996 documented as of this encounter
[2024-02-25 05:48] LABS: Alanine Aminotransferase 50 U/L (7-52); Albumin Globulin Ratio 1.9 (0.9-2); Albumin Level 4.3 gm/dl (3.4-5.0); Alkaline Phosphatase 87 U/L (34-104); Bilirubin,Total 1.6 mg/dl (0.2-1.0); Blood Urea Nitrogen 16 mg/dl (6-23); Calcium 8.8 mg/dl (8.6-10.3); Carbon Dioxide 23 mmol/L (21-32); Chloride 105 mmol/L (98-107); Creatinine Clr Calc Pharmacy 64.3 ml/min; Est GFR (African American) 78.8 ml/min; Globulin 2.3 gm/dl (2.5-4.0); Glucose 113 mg/dl (70-99(Fasting)); Total Protein 6.6 gm/dl (6.0-8.3); Troponin I High Sensitivity 2.4 pg/ml (0-20)
--- OUTSIDE RECORDS SUMMARY | 2024-02-25 05:48 | External Medical Summary | Summary of Care ---
Author Name Unknown Organization [facility] Address [address] [place] [address] Phone [phone] Care Team Providers Care Hog Counter Name Role Phone Luther Harrison MD Primary Care Provider [phone] Reason for Visit * Reason Onset Date Comments Information 11/08/2023 AAA screening Encounter Details Date Type Department Care Team (Late st Contact Info) Description 11/08/[address] [facility] [address] [place] [address] Luther Harrison MD [address] [place] [address] Information (AAA screening ) Allergies Active Allergy Reactions Criticality Noted Date Comments Lisinopril Cough Medium 02/19/2013 documented as of this encounter (statuses as of 11/15/2023) Medications Medication Sig Dispensed Refills Start Date End Date Status ASPIRIN 81 MG PO CHEW One pill by mouth once a day with food 100 Tab 5 03/28/2011 Active Nitroglycerin 0.4 MG Sublingual Tablet Sublingual (Nitrostat)Indication s:CAD (coronary artery disease) place 1 tablet under the tongue every 5 minutes for UP TO 3 doses if needed for angina as directed by prescriber 25 Tablet 1 11/29/2021 Active Additional Information Patient not taking.Reported on 08/09/2023 Levothyroxine Sodium 25 MCG Oral Tablet (Levoxyl)Indications: [...] Oral Tablet (Cozaar)Indications:C oronary artery disease involving [place] coronary artery of [place] heart without angina pectoris,S/P CABG x 2,Hypertensive [...] until gone 6 Tablet 0 08/13/2023 Active Ezetimibe 10 MG Oral Tablet (Zetia)Indications:Dy slipidemia, goal LDL below 70 Take 1 Tablet by mouth in the morning. 90 Tablet 3 08/20/2023 Active Promethazine-DM 6.25-15 MG/5ML Oral SyrupIndications:Uppe r respiratory tract infection, unspecified type Take 5 mL by mouth 4 times a day as needed for Cough. 120 mL 1 09/12/2023 Active documented as of this encounter (statuses as of 11/15/2023) Active Problems Problem Noted Date Diagnosed Date Acquired hypothyroidism 04/27/2023 HTN, goal below 140/90 [...] as of this encounter (statuses as of 11/15/2023) Resolved Problems Problem Noted Date Diagnosed Date [...] CAD (28 Apr 2012) and transfer to [facility]. R/O CELLULITIS OF LEG 05/29/20112016 FINGER INJURY, RIGHT RING 05/30/2006 TENDONITIS, RIGHT RING 05/30/200604/05 UNILAT INGUINAL HERNIA 04/05 Overview: right,mild documented as of this encounter (statuses as of 11/15/2023) Immunizations Name Administration Dates Next Due COVID-19 [...] Cigarettes 1.5 30 0 01/03/1973 - 01/03/2003 Smokeless Tobacco: Never Alcohol Use Standard Drinks/Week [...] encounter Miscellaneous Notes * Telephone Encounter - Leonora Castano LPN - 11/15/2023 1:05 PM EDT Through advanced analysis/trending of this patient's history, they have been identified to have a positive AAA flag and are at a higher risk for Abdominal aortic aneurysm. This advanced analysis estimates the patient's risk for AAA. It only indicates that the patient's chances to have this condition are higher compared to most people. It does not indicate that the patient has this condition, but it is highly recommended the patient have a AAA screening for further evaluation. I have contacted the patient regarding scheduling a AAA screening. Outcomes: AAA screening ordered and scheduled * Telephone Encounter - Leonora Castano LPN - 11/13/2023 12:47 PM EDT Through advanced analysis/trending of this patient's history, they have been identified to have a positive AAA flag and are at a higher risk for Abdominal aortic aneurysm. This advanced analysis estimates the patient's risk for AAA. It only indicates that the patient's chances to have this condition are higher compared to most people. It does not indicate that the patient has this condition, but it is highly recommended the patient have a AAA screening for further evaluation. I have contacted the patient regarding scheduling a AAA screening. Outcomes: Left message * Telephone Encounter - Leonora Castano LPN - 11/12/2023 11:27 AM EDT I am calling to discuss some recommended testing. Our records indicate that you are due for a screening ultrasound of your aorta (this test checks for an enlargement of your aorta at the level of your abdomen). Have you had discussions with your provider about this?we've recently started evaluating your electronic health record to provide better screening and care for people at risk for disease of the aorta (the main artery that carries blood from your heart to the rest of your body). Based on your laboratory results and other clinical conditions, you may be at high risk for an abdominal aortic aneurysm (AAA, an enlargement of your lower aorta). This evaluation doesn't mean you have an AAA. It just means you should get screened at your earliest convenience by having an ultrasound. The screening results will tell your doctor if there's anything they need to examine more closely. Through advanced analysis/trending of this patient's history, they have been identified to have a positive AAA flag and are at a higher risk for Abdominal aortic aneurysm. This advanced analysis estimates the patient's risk for AAA. It only indicates that the patient's chances to have this condition are higher compared to most people. It does not indicate that the patient has this condition, but it is highly recommended the patient have a AAA screening for further evaluation. I have contacted the patient regarding scheduling a AAA screening. Outcomes: Left message * Telephone Encounter - Leonora Castano LPN - 11/08/2023 4:19 PM EDT Through advanced analysis/trending of this patient's history, they have been identified to have a positive AAA flag and are at a higher risk for Abdominal aortic aneurysm. Pt will be contacted by a [facility] nurse to discuss AAA screening. documented in this encounter Plan of Treatment Upcoming Encounters Date Type Department Care Team (Late st Contact Info) Description 11/20/2023 8:15 AM EDT Imaging Radiology, [place] [address] [place] [address] 12/10/2023 7:40 AM EDT Office Visit [facility] [address] [place] [address] Luther Harrison MD [address] [place] [facility] [place] [address] 01/23/2024 2:30 PM EDT Office Visit [facility] [address] [place] [address] Ana Toussaint MD [address] [place] [address] Scheduled Orders Name Type Priority Associated Diagnoses Orde r Schedule US AAA SCREEN, RADIOLOGY Medical Imaging Routine Screening for AAA (abdominal aortic aneurysm) Expected: 11/15/2023, Expires: 11/14/2024 Scheduled Procedures Name Priority Associated Diagnoses Date/Ti me COLONOSCOPY FLEXIBLE PROXIMAL DIAGNOSTIC Recall History of colon polyps Health Maintenance Due Date Last Done Comments Depression Screening 10/05/2020 10/06/2019 COLONOSCOPY-EVERY 2 YRS AGES 18-100 11/24/2022 11/24/2020, 11/24/2020, 11/14/2017, Additional history exists GFR 10/09/2023 10/08/2022, 10/04, 10/25/2020, Additional history exists TSH 08/16/2024 08/16/2023, 04/05, 10/08/2022, Additional history exists Albumin/Creatinine Ratio 10/24/2024 022, 10/25/2020, 09/04/2019, Additional history exists DTaP,Tdap,and Td Vaccines (3 - Td or Tdap) 10/06/2028 10/06/2018, 05/17/2009, 04/05/1999 AAA Screening Completed 11/08/2016 Pneumococcal Vaccine: 65+ Years Completed 04/05/2017, 03/24/2015, 05/19/2012 COVID-19 Vaccine Completed 06/19/2023, , 09/29/2020, Additional history exists Influenza Vaccine (FLU shot) Completed , 04/21/2022, 06/14/2021, Additional history exists Zoster Vaccines Completed 09/04/2023, 06/05, 06/18/2013 GARDASIL-HPV IMMUNIZATION SERIES Aged Out No longer eligible based on patient's age to complete this topic Hepatitis B Aged Out No longer eligi ble based on patient's age to complete this topic MENINGOCOCCAL (MENACTRA/MENVEO) Aged Out No longer eligible based on patient's age to complete this topic documented as of this encounter Medical Devices Implanted Type Area Garage Hand Device Identifier Shelf Expiration Date Model / Serial / Lot Sut Steel 6 M654g - [id number] Implanted:Qty: 6 on 04/30/2012 at OR [facility] N/A: Chest DO NOT USE 09/03/2016 [id number] / / [id number] Graft Marker Coronary - [id number] Implanted:Qty: 1 on 04/30/2012 at OR [facility] N/A: Heart VM CARDIO VASCULAR 01/01/2013 [id number] / / [id number] documented as of this encounter Visit Diagnoses Diagnosis Screening for AAA (abdominal aortic aneurysm)- Primary Screening for other and unspecified cardiovascular conditions documented in this encounter Advance Directives Latest [...] the patient have Health Care Power of Meat Molder? No Care Teams Hog Counter Relationship Specialty Start Date End Date Luther Harrison MD [address] [place] [address] PCP - General 03/19/1996 documented as of this encounter
--- OUTSIDE RECORDS SUMMARY | 2024-02-25 05:48 | External Medical Summary | Summary of Care ---
Author Name Unknown Organization [facility] Address [address] [place] [address] Phone [phone] Care Team Providers Care Mechanical Expert Name Role Phone Luther Harrison MD Primary Care Provider [phone] Reason for Visit * Reason Comments Cold Symptoms Encounter Details Date Type Department Care Team (Late st Contact Info) Description 09/12/2023 5:00 PM EST Telemedicine [facility] [address] [place] [id number] Alexey Fulton PA-C [address] [place] [address] Upper respiratory tract infection, unspecified type* Allergies Active Allergy Reactions Criticality Noted Date Comments Lisinopril Cough Medium 02/19/2013 documented as of this encounter (statuses as of 09/12/2023) Medications Medication Sig Dispensed Refills Start Date [...] Oral Tablet (Cozaar)Indications:C oronary artery disease involving [place] coronary artery of [place] heart without angina pectoris,S/P CABG x 2,Hypertensive [...] as of this encounter (statuses as of 09/12/2023) Active Problems Problem Noted Date Diagnosed Date [...] as of this encounter (statuses as of 09/12/2023) Resolved Problems Problem Noted Date Diagnosed Date [...] CAD (28 Apr 2012) [place] [facility] R/O CELLULITIS OF LEG 05/29/20112016 FINGER INJURY, RIGHT RING 05/30/2006 TENDONITIS, RIGHT RING 05/30/200604/05 UNILAT INGUINAL HERNIA 04/05 Overview: right,mild documented as of this encounter (statuses as of 09/12/2023) Immunizations Name Administration Dates Next Due COVID-19 [...] Date Smoking Tobacco: Former Cigarettes 1.5 30 Q uit: 01/03/2003 Smokeless Tobacco: Never Alcohol Use Standard [...] on file documented as of this encounter Progress Notes * Alexey Fulton PA-C - 09/12/2023 4:40 PM EST Subjective Kale Duque is a 73 year old male. Chief Complaint Patient presents with Cold Symptoms HPI: Patient location: HOME. I was not in a hospital or clinic location. After connecting through [facility] [employer], patient was verified with two unique identifiers. Patient (or authorized legal insurance verification representative) was then informed that this was a Telemedicine visit and being conducted confidentially over secure lines. Methods to assure confidentiality were taken. Patient acknowledged consent and understanding of privacy and security of the Telemedicine visit. The patient agreed to participate. Kale presents sneezing, runny nose. Cough mild and mostly dry. No fever or body aches. He denies sob/wheezing. No known sick/covid contacts. 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 120mL 1 ASPIRIN 81 MG PO CHEW One pill by mouth once a day with food 100 Tab 5 Nitroglycerin 0.4 MG Sublingual Tablet Sublingual (Nitrostat) place 1 tablet under the tongue every5 minutes for UP TO 3 doses if needed for angina as directed by prescriber (Patient not taking: Reported on 08/09/2023) 25 Tablet 1 Levothyroxine Sodium 25 MCG [...] BY MOUTH EVERY MORNING 90 Tablet 1 Azithromycin 250 MG Oral Tablet (Zithromax Z-Slava) Take two tablets by mouth on first day, then 1 tablet daily until gone 6 Tablet 0 Ezetimibe 10 MG Oral Tablet (Zetia) Take 1 Tablet by mouth in the morning. 90 Tablet 3 No current facility-administered medications for this visit. Facility-Administered Medications Ordered in Other Visits Medication Dose Route Frequency Provider Last Rate Last Admin NORepinephrine intra-op only infusion Continuous PRN Landeros, Paula, SRNA 5 mcg/min at 04/30/122119 albumin, human 25 % inj Once PRN Landeros, Paula, SRNA 250 mL at 04/30/122148 Past Medical History: Diagnosis Date Benign neoplasm of colon 10/01/12 hyperplastic polyps-repeat c scope in 5 yrs CAD (coronary artery disease) 04/29/2012 FINGER INJURY, RIGHT RING 05/30/2006 Non-cardiac chest pain about 2007 Negative workup Positional sleep apnea 01/15/2017 PSG 01/02/17 - AHI 7 (non supine 1/hr) Positional treatment recommended S/P CABG x 2 05/13/2012 Smoking history Quit 2002 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, 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 TENDONITIS, RIGHT RING 05/30/2006 Past Surgical History: Procedure Laterality Date CABG, ARTERIAL, SINGLE 04/30/2012 CORONARY ARTERY BYPASS GRAFT USING ARTERY 1 GRAFT performed by Murtaza Barajas MD [place] [facility] CABG, ARTERY-VEIN, SINGLE 04/30/2012 CORONARY ARTERY BYPASS GRAFT ARTERIAL AND VENOUS 1 GRAFT performed by Murtaza Barajas MD at [place] [facility] COLONOSCOPY W/ BIOPSY (RECTUM) 10/01/2012 hyperplastic polyps-repeat c scope in 5 yrs COLONOSCOPY W/ LESION REMOVAL, SNARE 08/01/2009 adenomatous tissue--repeat 3 years COLONOSCOPY, DIAGNOSTIC (RECTUM) 11/14/2017 adenomatous polyps, diverticulosis, fair prep, repeat 2 yrs/[facility] COLONOSCOPY, DIAGNOSTIC (RECTUM) 11/24/2020 polyp / bioies benign polyp / 5 year recall / COLONOSCOPY FLEXIBLE PROXIMAL DIAGNOSTIC performed byCarlos Marcelino MD at END[facility]COPY [facility] DRAIN SKIN ABSCESS, SIMPLE/SINGLE rectal, with fistula EACH ADD TOOTH EXTRACTION about age 19 wisdom teeth ENDO,VIDEO ASSIST HARVEST TAYLOR 04/30/2012 ENDOSCOPY VIDEO ASSISTED HARVEST VEIN performed by Murtaza Barajas MD at [place] [facility] INSERT IA PERCUT DEVICE 04/30/2012 INSERT INTRA AORTIC BALLOON ASSIST DEVICE PERCUTANEOUS performed by Kai Montero MD at CARDIAC LABS [facility] 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, ether general anesthetics REPAIR INITIAL INGUINAL HERNIA REDUCIBLE AGE 4 OR MORE 1999 right (previously repaired at about age 7) REVISE NOSE FOR CLEFT LIP/PALATE Review of patient's allergies indicates: Allergen Reactions Lisinopril Cough Family History Problem Relation Age of Onset No Known Problems Sister No Known Problems Daughter No Known Problems Daughter Heart Disorder Father heart failure, htn, cad Heart Disorder Brother angioplasty at age 43 Family Status Relation Status Mo at age 83 never recovered after hip fracture Fa at age 73 Bro Alive Sis Alive MGMA MGFA PGMA PGFA Thaddeus Alive Thaddeus Alive Bro (Not Specified) Social History Socioeconomic History Marital status: Spouse name: Not on file Number of children: 2 Years of education: Not on file Highest education level: Not on file Occupational History Employer: [employer] Tobacco Use Smoking status: Former Packs/day: 1.50 Years: 30.00 Additional pack years: 0.00 Total pack years: 45.00 Types: Cigarettes Quit date: 01/03/2003 Years since quittin.7 Smokeless tobacco: Never Substance and Sexual Activity Alcohol use: Yes Alcohol/week: 10.0 standard drinks of alcohol Types: 6 12 oz of beer, 6 5 oz of wine per week Comment: beer, weekends - 6 pack total/wkend// 2 drinks per day Drug use: No Sexual activity: Yes Partners: Female control/protection: Condom Other Topics Concern Service Not Asked Blood Transfusions Not Asked Caffeine Concern Not Asked Occupational Exposure Not Asked Hobby Hazards Not Asked Sleep Concern Not Asked Stress Concern Not Asked Weight Concern Not Asked Special Diet Not Asked Back Care Not Asked Exercise Not Asked Bike Helmet Not Asked Seat Belt Not Asked Self-Exams Not Asked Social History Narrative employed - [employer]. 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 HENT: Positive for rhinorrhea. Respiratory: Positive for cough. Negative for shortness of breath and wheezing. Cardiovascular: Negative for chest pain. Gastrointestinal: Negative for diarrhea, nausea and vomiting. All other systems reviewed and are negative. Objective There were no vitals taken for this visit. Physical Exam Constitutional: Appearance: Normal appearance. He is not toxic-appearing. HENT: Nose: Rhinorrhea present. Eyes: General: Right eye: No discharge. Left eye: No discharge. Conjunctiva/sclera: Conjunctivae normal. Pulmonary: Effort: Pulmonary effort is normal. No respiratory distress. Neurological: Mental Status: He is alert. Psychiatric: Mood and Affect: Mood normal. Behavior: Behavior normal. ASSESSMENT/PLAN: Upper respiratory tract infection, unspecified type (Primary) - Promethazine-DM 6.25-15 MG/5ML Oral Syrup; Take 5 mL by mouth 4 times a day as needed for Cough. Discussed with patient I favor viral URI, quite possibly rhinovirus Will treat symptomatically Encourage oral fluids,rest Will need to be seen in clinic if failure to improve or worsening symptoms. Alexey Fulton PA-C documented in this encounter Plan of Treatment Upcoming Encounters Date Type Department Care Team (Late st Contact Info) Description 12/10/2023 7:40 AM EDT Office Visit [facility] [address] [place] [id number] Luther Harrison MD [address] [place] [address] 01/23/2024 2:30 PM EDT Office Visit [facility] [address] [place] [address] Ana Toussaint MD [address] [place] [address] Scheduled Procedures Name Priority Associated Diagnoses Date/Ti [...] this encounter Medical Devices Implanted Type Area Chief Engineer Drilling And Recovery Device Identifier Shelf Expiration Date Model / Serial / Lot Graft Marker Coronary - [id number] Implanted:Qty: 1 on 04/30/2012 [place] [facility] N/A: Heart VM CARDIO VASCULAR 01/01/2013 [id number] / / [id number] documented as of this encounter Visit Diagnoses Diagnosis Upper respiratory tract infection, unspecified type- Primary documented in this encounter Advance Directives Latest [...] the patient have Health Care Power of Topstitcher Lockstitch? No Care Teams Mechanical Expert Relationship Specialty Start Date End Date Luther Harrison MD [address] [place] [address] PCP - General 03/19/1996 documented as of this encounter
--- OUTSIDE RECORDS SUMMARY | 2024-02-25 05:48 | External Medical Summary | Summary of Care ---
Author Name Unknown Organization [facility] Address [address] [place] [address] Phone [phone] Care Team Providers Care Can Crimper Name Role Phone Luther Harrison MD Primary Care Provider [phone] Encounter Details Date Type Department Care Team (Late st Contact Info) Description 11/08/2023 External Data Patient Risk Medial Allergies Active Allergy Reactions Criticality Noted Date Comments Lisinopril Cough Medium 02/19/2013 documented as of this encounter (statuses as of 11/08/2023) Medications Medication Sig Dispensed Refills Start Date [...] Oral Tablet (Cozaar)Indications:C oronary artery disease involving [place] coronary artery of [place] heart without angina pectoris,S/P CABG x 2,Hypertensive [...] as of this encounter (statuses as of 11/08/2023) Active Problems Problem Noted Date Diagnosed Date [...] as of this encounter (statuses as of 11/08/2023) Resolved Problems Problem Noted Date Diagnosed Date [...] CAD (28 Apr 2012) and transfer to [facility] [place]. R/O CELLULITIS OF LEG 05/29/20112016 FINGER INJURY, RIGHT RING 05/30/2006 TENDONITIS, RIGHT RING 05/30/200604/05 UNILAT INGUINAL HERNIA 04/05 Overview: right,mild documented as of this encounter (statuses as of 11/08/2023) Immunizations Name Administration Dates Next Due COVID-19 [...] Description 12/10/2023 7:40 AM EDT [facility] Visit [facility] [address] [facility] [address] Luther Harrison MD [address] [place] [facility] [place] [address] 01/23/2024 2:30 PM EDT [facility] [address] [facility] [address] Ana Toussaint MD [address] [facility] [address] [place] [address] Scheduled Procedures Name Priority Associated Diagnoses Date/Ti [...] this encounter Medical Devices Implanted Type Area Signal Fitter Device Identifier Shelf Expiration Date Model / Serial / Lot Sut Steel 6 M654g - [id number] Implanted:Qty: 6 on 04/30/2012 at OR [facility] [place] N/A: Chest DO NOT USE 09/03/2016 [id number] / / [id number] Graft Marker Coronary - [id number] Implanted:Qty: 1 on 04/30/2012 at OR [facility] N/A: Heart VM CARDIO VASCULAR 01/01/2013 [id number] / / [id number] documented as of this encounter Advance Directives Latest Code Status [...] the patient have Health Care Power of Siphon Operator? No Care Teams Can Crimper Relationship Specialty Start Date End Date Luther Harrison MD [address] [place] [address] PCP - General 03/19/1996 documented as of this encounter
[2024-02-25 06:03] LABS: Basophils # (auto) 0.12 K/uL (0.00-0.20); Basophils % (auto) 0.3 %; Eosinophils # (auto) 0.55 K/uL (0.00-0.50); Eosinophils % (auto) 1.5 %; Hemoglobin 16.5 g/dl (14.0-18.0); Immature Granulocytes # (auto) 0.12 K/uL (0.01-0.20); Immature Granulocytes % (auto) 0.3 %; Lymphocytes # (auto) 26.69 K/uL (1.20-3.40); Lymphocytes % (auto) 71.7 %; Mean Corpuscular Hemoglobin 28.5 pg (25.0-34.0); Mean Corpuscular Volume 86.5 fL (80.0-100.0); Mean Platelet Volume 10.5 fL (9.4-12.4); Monocytes # (auto) 0.94 K/uL (0.11-0.59); Monocytes % (auto) 2.5 %; Neutrophils % (auto) 23.7 %; Nucleated RBC # (auto) 0.08 K/uL (0.00-0.12); Nucleated RBC % (auto) 0.2 %; Platelet Count 146 K/uL (130-400); RDW Coefficient of Variation 14.6 % (11.5-14.5); RDW Standard Deviation 45.8 fL (36.4-46.3); Red Blood Count 5.78 M/uL (4.70-6.10)
[2024-02-25 06:04] LABS: White Blood Count 37.22 K/ul (4.8-10.8)
[2024-02-25 06:28] LABS: Magnesium 2.1 mg/dl (1.7-2.4)
--- NOTE | 2024-02-25 07:26 | XRay Report ---
XR chest 1V portable HISTORY: 73 years-old Male chest pain acute chest pain COMPARISON: CTA chest 11/06/2022 TECHNIQUE: AP view of the chest FINDINGS: Cardiac silhouette is enlarged. Median sternotomy. No pneumothorax or pleural effusion. Mild patchy b ibasilar airspace opacities. Pulmonary emphysema with chronic interstitial coarsening. Chronic right- sided rib chest wall deformity. IMPRESSION: 1. Mild patchy right greater than left bibasilar opacities are suspicious for an infectious or inflam matory pneumonitis. 2. Cardiomegaly without overt pulmonary edema. 3. Emphysema. ACT 112: Negative or not required by law. The above report was generated using voice recognition software. It may contain grammatical, syntax o r spelling errors. Electronically signed by: Lisandro Graham M.D. 02/25/2024 7:25 AM
[2024-02-25] MEDS: OPTIRAY 320 125ml IV ONE (07:31)
--- NOTE | 2024-02-25 07:56 | History & Physical Report ---
Date of Service February 25, 2024 Assessment & Plan (1) Chest pain: Plan: 73-year-old male with past medical history significant for dyslipidemia, hypothyroidism, post bronchitis tussive syndrome, positional sleep apnea, CAD s/p CABG, hypertension, CKD stage III, comes from home because of chest pain. Around 2 AM he noticed left-sided chest pain 5/10 in severity. No radiation. No nausea. No sweating. No headache. Currently his pain is improving. No cough. No fevers, no abdominal pain. Normal bowel and bladder movements. No swelling of the legs. Currently resting comfortably and hemodynamically stable. Chest pain Initial workup unremarkable Will follow serial cardiac enzymes and echo N.p.o. Cardiology consult for further recommendations Leukocytosis Etiology unclear Is mildly wheezing on exam Will follow CT chest Empiric Rocephin and Doxy Follow the cultures Follow peripheral smear If any concerns will consult hematology History of CAD s/p CABG On statin, and beta-mari Hyperlipidemia On statin and Zetia Hypothyroidism On Synthyroid Hypertension On losartan and metoprolol succinate DVT prophylaxis SCDs Disposition Telemetry Full code. History of Present Illness Chief Complaint: Chest pain Primary Care Provider: Lutehr Harrison MD 73-year-old male with past medical history significant for dyslipidemia, hypothyroidism, post bronchitis tussive syndrome, positional sleep apnea, CAD s/p CABG, hypertension, CKD stage III, comes from home because of chest pain. Around 2 AM he noticed left-sided chest pain 5/10 in severity. No radiation. No nausea. No sweating. No headache. Currently his pain is improving. No cough. No fevers, no abdominal pain. Normal bowel and bladder movements. No swelling of the legs. Currently resting comfortably and hemodynamically stable. Past medical history. As mentioned above. Past surgical history. CABG. Colonoscopy with biopsy. Repair of inguinal hernia. Revision of nose for cleft palate. Social history. . Quit smoking 2-3. Smoked 1.5 packs a day for 30 years. 10 standard drinks of alcohol per week. No drug use. Family history. Brother had angioplasty at age of 43. Father had heart failure, hypertension, CAD. Allergies Allergy/AdvReac Type Severity Reaction Status Date / Time lisinopril AdvReac Unknown DRY COUGH Verified 12/06/21 06:12 Home Medications Medication Instructions Recorded Confirmed Type atorvastatin 80 mg tablet 80 mg PO DAILY 02/25/24 02/25/24 History ezetimibe 10 mg tablet 10 mg PO DAILY 02/25/24 02/25/24 History levothyroxine 25 mcg tablet 25 mcg PO DAILY 02/25/24 02/25/24 History losartan 25 mg tablet 25 mg PO DAILY 02/25/24 02/25/24 History metoprolol succinate 100 mg 100 mg PO DAILY 02/25/24 02/25/24 History tablet,extended release 24 hr nitroglycerin 0.4 mg sublingual 0.4 mg sublingual USEASDIRECTD PRN 02/25/24 02/25/24 History tablet Chest Pain Past Med/Surg History Problem List (Updated 02/25/24 @ 06:22 by Rosmery Quijano DO) Leukocytosis (Acute) Chest pain (Acute) Emphysema lung Bronchitis Leukocytosis (Acute) Hypoxia (Acute) Encounter for pre-operative examination Medical History History of skin cancer Hx of colonic polyps Hyperlipidemia Hypertension Osteoarthritis Surgical History H/O cleft lip repair multiple (as a child) H/O hernia repair as a child H/O inguinal hernia repair H/O local excision of skin lesion History of cardiac cath (~2011) [facility] - transferred to [facility] History of colonoscopy History of repair of congenital cleft palate multiple (as a child) History of right cataract surgery Hx of CABG x2 vessels in 2011 at [facility]. follows with Dr. Brambila (annually) Family History Other No family history of adverse response to anesthesia Social History Smoking Status: Never smoker Second Hand Exposure: No; Do You Dip or Chew Tobacco: No; Hx Alcohol Use: Yes Alcohol type: wine Hx Substance Use: No Preferred Language: Amharic Communication Ability: Effective Human[employer] Division Chair Required: No Beliefs That Will Affect Care: None Current Living Situation: Spouse Feels Safe at Home: Yes Assistive Devices: None Review of Systems Review of Systems: All systems reviewed & are unremarkable except as noted in HPI & below Physical Exam Physical Exam: General- Not in distress Head- atraumatic Eyes- PERRL. ENT- oropharynx clear Neck- supple, no JVD. Lungs- clear to auscultation mild b/l wheezing present, no crackles Heart- regular rhythm; no murmur, no gallop. Abdomen- normal bowel sounds, soft, nontender,no distension Extremities- no pretibial edema, no erythema seen Neuro- alert, oriented ; PERRL, no facial palsy; no dysarthria; moves extremities Results & Data Results & Data Vital Signs (Past 12 Hours) Vital Signs Temp Pulse Resp BP Pulse Ox O2 Del Method 02/25/24 06:30 56 L 17 112/63 93 Room Air 02/25/24 06:15 54 L 15 130/61 93 Room Air 02/25/24 06:00 57 L 13 112/59 L 91 Room Air 02/25/24 05:45 56 L 18 100/60 91 Room Air 02/25/24 05:33 58 L 17 117/60 91 Room Air 02/25/24 05:30 58 L 17 117/60 93 Room Air 02/25/24 05:00 57 L 16 93 02/25/24 05:00 118/64 02/25/24 04:55 122/63 02/25/24 04:54 63 20 93 02/25/24 04:51 58 L 17 91 02/25/24 04:45 63 02/25/24 04:43 134/69 02/25/24 04:43 134/69 02/25/24 04:35 36.8 C 62 18 135/62 92 Room Air 02/25/24 04:32 93 Room Air Diagnostic Findings Laboratory Results WBC 37.22 K/ul (4.8-10.8) H* 02/25/24 04:53 RBC 5.78 M/uL (4.70-6.10) 02/25/24 04:53 Hgb 16.5 g/dl (14.0-18.0) 02/25/24 04:53 Hct 50.0 % (42.0-52.0) 02/25/24 04:53 MCV 86.5 fL (80.0-100.0) 02/25/24 04:53 MCH 28.5 pg (25.0-34.0) 02/25/24 04:53 MCHC 33.0 g/dL (32.0-36.0) 02/25/24 04:53 RDW Std Deviation 45.8 fL (36.4-46.3) 02/25/24 04:53 RDW Coeff of [place] 14.6 % (11.5-14.5) H 02/25/24 04:53 Plt Count 146 K/uL (130-400) 02/25/24 04:53 MPV 10.5 fL (9.4-12.4) 02/25/24 04:53 Immature Gran % (Auto) 0.3 % 02/25/24 04:53 Neut % (Auto) 23.7 % 02/25/24 04:53 Lymph % (Auto) 71.7 % 02/25/24 04:53 [place] % (Auto) 2.5 % 02/25/24 04:53 Eos % (Auto) 1.5 % 02/25/24 04:53 Baso % (Auto) 0.3 % 02/25/24 04:53 Neut # (Auto) 8.80 K/uL (1.40-6.50) H 02/25/24 04:53 Lymph # (Auto) 26.69 K/uL (1.20-3.40) H 02/25/24 04:53 [place] # (Auto) 0.94 K/uL (0.11-0.59) H 02/25/24 04:53 Eos # (Auto) 0.55 K/uL (0.00-0.50) H 02/25/24 04:53 Baso # (Auto) 0.12 K/uL (0.00-0.20) 02/25/24 04:53 Immature Gran # (Auto) 0.12 K/uL (0.01-0.20) 02/25/24 04:53 Absolute Nucleated RBC 0.08 K/uL (0.00-0.12) 02/25/24 04:53 Nucleated RBC % (auto) 0.2 % 02/25/24 04:53 PT 11.0 Seconds (9.0-12.0) 02/25/24 04:53 INR 1.0 (0.9-1.1) 02/25/24 04:53 Sodium 136 mmol/L (136-145) 02/25/24 05:54 Potassium 5.0 mmol/L (3.5-5.1) 02/25/24 05:54 Chloride 105 mmol/L (98-107) 02/25/24 04:53 Carbon Dioxide 23 mmol/L (21-32) 02/25/24 04:53 Anion Gap TNP 02/25/24 04:53 BUN 16 mg/dl (6-23) 02/25/24 04:53 Creatinine 1.07 mg/dl (0.6-1.4) 02/25/24 04:53 Est Cr Clr Drug Dosing 64.3 ml/min 02/25/24 04:53 Est GFR ( Amer) 78.8 ml/min 02/25/24 04:53 Est GFR (Non-Af Amer) 68.0 ml/min 02/25/24 04:53 BUN/Creatinine Ratio 15.0 (10-20) 02/25/24 04:53 Glucose 113 mg/dl (70-99(Fasting)) H 02/25/24 04:53 Calcium 8.8 mg/dl (8.6-10.3) 02/25/24 04:53 Magnesium 2.1 mg/dl (1.7-2.4) 02/25/24 05:54 Total Bilirubin 1.6 mg/dl (0.2-1.0) H 02/25/24 04:53 AST 25 U/L (13-39) 02/25/24 05:54 ALT 50 U/L (7-52) 02/25/24 04:53 Alkaline Phosphatase 87 U/L (34-104) 02/25/24 04:53 Troponin I High Sens 2.4 pg/ml (0-20) 02/25/24 04:53 B-Natriuretic Peptide 38 pg/ml (0-100) 02/25/24 05:11 Total Protein 6.6 gm/dl (6.0-8.3) 02/25/24 04:53 Albumin 4.3 gm/dl (3.4-5.0) 02/25/24 04:53 Globulin 2.3 gm/dl (2.5-4.0) L 02/25/24 04:53 Albumin/Globulin Ratio 1.9 (0.9-2) 02/25/24 04:53 Impressions Chest X-Ray 02/25/24 04:44 XR chest 1V portable HISTORY: 73 years-old Male chest pain acute chest pain COMPARISON: CTA chest 11/06/2022 TECHNIQUE: AP view of the chest FINDINGS: Cardiac silhouette is enlarged. Median sternotomy. No pneumothorax or pleural effusion. Mild patchy bibasilar airspace opacities. Pulmonary emphysema with chronic interstitial coarsening. Chronic right-sided rib chest wall deformity. IMPRESSION: 1. Mild patchy right greater than left bibasilar opacities are suspicious for an infectious or inflammatory pneumonitis. 2. Cardiomegaly without overt pulmonary edema. 3. Emphysema. ACT 112: Negative or not required by law. The above report was generated using voice recognition software. It may contain grammatical, syntax or spelling errors. Electronically signed by: Lisandro Graham M.D. 02/25/2024 7:25 AM ECG Additional Comments: ECG. Normal sinus rhythm with a rate of 61. No significant change was found. Code Status & VTE Plan VTE Prophylaxis Plan VTE Prophylaxis will be ordered: Yes
[2024-02-25 08:03] LABS: Appearance Urine Clear (Clear); Bacteria Urine Automated None Seen (None Seen); Bilirubin Urine Negative (Negative); Blood Urine Negative (Negative); Cast Urine Automated 0-2 /lpf (0-2); Color Urine Yellow; Epithelial Cell Urine Auto 0-2 /hpf (0-2); Glucose Urine UA Negative (Negative); Ketones Urine Negative (Negative); Leukocyte Esterase Urine 2+ (Negative); Nitrite Urine Negative (Negative); Protein Urine Negative (Negative); RBC Urine Automated 0-2 /hpf (0-2); Specific Gravity Urine 1.017 (1.000-1.030); Urobilinogen Urine Negative (Negative); WBC Urine Automated 21-50 /hpf (0-5)
[2024-02-25] MEDS ORDERED: NITROGLYCERIN SL 0.4 MG/TAB TAB SL PRN (08:31)
[2024-02-25] MEDS ORDERED: POLYETHYLENE (MIRALAX) 17 GM PACK PO PRN (08:31)
[2024-02-25] MEDS ORDERED: ACETAMINOPHEN 325 MG TAB PO PRN (08:31)
--- NOTE | 2024-02-25 08:37 | CT Scan Report ---
CT angio chest PE protocol CT DOSE: 883.66 mGy.cm HISTORY: 73 years-old Male with PE. Acute short of breath with left-sided chest pain TECHNIQUE: Multiple CTA images of the chest were obtained after the intravenous administration of 112 ml Optiray. Coronal and sagittal MIPS were obtained from the axial data set and were submitted for review. All measurements were obtained according to NASCET criteria. A dose lowering technique was u tilized adhering to the principles of ALARA. COMPARISON: 11/06/2022 FINDINGS: CTA: Moderate cardiomegaly. No pericardial effusion. Prior median sternotomy with CABG. Extensive cody cifications of the coronary arteries. Atherosclerosis of the aorta without aneurysm. There is patency of the imaged great vessels. No pulmonary emboli are identified. CT CHEST: Unremarkable thyroid. Mediastinal and hilar lymphadenopathy redemonstrated with subcarinal lymph nodes measuring up to 3.2 x 1.7 cm on image 110 series 4. Findings are similar to prior. No pne umothorax or pleural effusion. Mild pulmonary emphysema with bronchial wall thickening. Mild intralob ular septal thickening. Mild patchy right greater than left bibasilar groundglass densities. There ar e no suspicious pulmonary nodules or masses identified. Stable 8 mm fissural nodule of the right midd le lobe on image 99 suggestive of a benign lymph node. Mild hepatosplenomegaly with hepatic steatosis. The imaged spleen measures up to 13.3 cm. Unremarkabl e soft tissues. No acute fracture. Chronic deformity of the right anterolateral fifth rib. IMPRESSION: 1. No pulmonary emboli identified. 2. Emphysema with suggestion of bronchitis. Tracheobronchial secretions with right lower lobe mucous plugging. 3. Right greater than left patchy bibasilar ground glass densities may represent atelectasis versus a mild pneumonitis. Correlate clinically to exclude aspiration. 4. No lobar airspace consolidation. 5. Stable mediastinal and hilar lymphadenopathy. ACT 112: Negative or not required by law. The above report was generated using voice recognition software. It may contain grammatical, syntax o r spelling errors. Electronically signed by: Lisandro Graham M.D. 02/25/2024 8:34 AM
--- NOTE | 2024-02-25 09:21 | Communication Note ---
Date of Service: February 25, 2024 Patient seen and examined at bedside Patient is admitted for left-sided chest pain; history of CAD status post CABG Reports that pain has now resolved. CTA chest did not show PE; emphysema with bronchitis present. Bibasilar patchy groundglass densities. Stable mediastinal and hilar lymphadenopathy. On physical examination; Constitutional: WD/WN, vitals as above, NAD, sitting up in bed, pleasant, conversing easily Respiratory: normal respiratory effort, lungs clear to auscultation, no wheeze, rales, rhonchi. Normal insp/exp effort, no accessory muscle use Cardiovascular: RRR, no murmur, no edema Vessels: no JVD or carotid bruit Chest: normal inspection of chest Abdomen: normal bowel sounds, soft, nontender, no hepatosplenomegaly Musculoskeletal: no cyanosis or clubbing, extremities motor strength 5/5 Skin: no rashes, warm and dry normal turgor Neurologic: PERRL, EOMI, accommodation nl, no face palsy, no dysarthria CN's II- XI intact bilaterally and moves all extremities Psychiatric: A+Ox3, euthymic affect Assessment/plan Chest pain, ACS rule out History of CAD status post CABG EKG on admission showed normal sinus rhythm; nonspecific ST and T wave changes. High sensitivity troponin negative; will repeat again. Lymphocytosis Possible pneumonia History of elevated lymphocytes in previous blood work as well Also has mediastinal, hilar lymphadenopathy along with hepatosplenomegaly suggestive of possible lymphoproliferative disorder Will obtain peripheral blood smear Hematology consultation Continue antibiotics for possible pneumonia. Follow-up on blood culture. BRIDGER blancas
[2024-02-25] MEDS: LEVOTHYROXINE SODIUM 25 MCG TABLET PO SCH (09:41)
--- NOTE | 2024-02-25 11:49 | Electrocardiogram Report ---
Test Reason : Blood Pressure : / mmHG Vent. Rate : 061 BPM Atrial Rate : 061 BPM P-R Int : 192 ms QRS Dur : 078 ms QT Int : 416 ms P-R-T Axes : 033 000 055 degrees QTc Int : 418 ms Normal sinus rhythm Low voltage QRS Nonspecific T wave abnormality Anteroseptal leads Abnormal ECG When compared with ECG of 07-NOV-2022 05:02, No significant change was found Confirmed by Gonzales Gant ([id number]) on 02/25/2024 11:49:17 AM Referred By: REFERRED SELF Confirmed By:Gonzales Gant
[2024-02-25] MEDS: DOXYCYCLINE HYCLATE 100 MG in DEXTROSE 5% MINI-B 100 ML IV SCH (12:09)
[2024-02-25] MEDS: cefTRIAXone SODIUM 2,000 MG/50 ML BAG IV SCH (12:14)
[2024-02-25] MEDS: ATORVASTATIN 40 MG TAB PO SCH (12:21)
[2024-02-25] MEDS: METOPROLOL SUCC 50MG EXT REL TAB PO SCH (12:21)
[2024-02-25] MEDS: LOSARTAN POTASSIUM 25 MG TAB PO SCH (12:22)
[2024-02-25] MEDS: EZETIMIBE 10 MG TAB PO SCH (12:22)
--- NOTE | 2024-02-25 12:48 | Cardiology Consultation ---
Date of Consultation February 25, 2024 Assessment & Plan (1) Chest pain: (2) Leukocytosis: (3) Abnormal chest CT: Plan Patient admitted for atypical chest pain. history of CAD s/p remote CABG in 2011. Chest pain not aided by nitro on arrival to ER. HS troponin negative x2. No acute/ischemic EKG changes. Chronic T wave inversion noted in anteroseptal leads. Currently chest pain free. Echocardiogram is pending. Would continue ASA, statin/zetia, losartan, metoprolol. Likely non cardiac chest pain. He has an abnormal chest CT, similar to November 2022 evaluation. No formal pulm work up. Now has WBC at 37. Would recommend hematology and pulmonary evaluation prior to discharge. Case discussed with Dr. Bear I spent a total of 55 minutes on the date of service in preparation, delivery, and documentation of the care provided to this patient, excluding any time spent in the performance of separately billed services. Shavon Hawkins PA-C Department of Cardiology, [facility] This chart was completed in part utilizing Speech Voice Recognition Software. Grammatical errors, random word insertions, pronoun errors, and incomplete sentences are an occasional consequence of this system due to software limitations, ambient noise, and hardware issues. Any formal questions or concerns about the content, text, or information contained within the body of this dictation should be directly addressed to the provider for clarification. Supervising Physician Co-Signing Physician Notes Attending attestation. I have personally performed a history and physical examination on the patient. I have reviewed the advance practitioner's documentation, and I agree with, and take responsibility for the plan of care. 73-year-old male admitted with atypical chest discomfort. No evidence of acute coronary syndrome. High-sensitivity troponin undetectable. 2D echocardiogram pending at this time. Recommend continue outpatient cardiac meds as outlined above. Consider pulmonary evaluation regarding CT findings. Thank you for allowing us to participate in the care of your patient. I spent a total of 30 minutes on the date of service in preparation, delivery, and documentation of the care provided to this patient, excluding any time spent in the performance of separately billed services. Agus Bear DO, [facility] History of Present Illness Reason for Consultation: Chest pain; history of CAD Requesting Physician: Dr. Edwards Attending Physician: Dr. Bear History of Present Illness Patient is a 73 year old male who presented to [facility] with complaints of chest pain. Known to [facility] - Dr. Brambila. History includes: 1. CAD, status post cardiac catheterization at [facility] 04/28/2012, revealing multivessel CAD status post CABG x2 with MCCORMACK to LAD and SVG to the PDA performed by Dr. Barajas on 04/30/2012. 2. Hypertension 3. Dyslipidemia Patient was admitted to [facility] last year in November 2022 for SOB/chest pain. Elevated WBC noted at that time with abnormal chest CT. Diagnosed with pneumonia. Symptoms improved with IV antibiotics. He had echo during that admission demonstrating normal LVEF at 55-60% without wall motion abnormalities. No repeat chest CT was done as outpatient. He reports he has not followed with pulmonology. He has chronic cough and chronic "bronchitis". However he reports his symptoms have been stable. Last night, patient awakened from sleep with substernal/left sided chest pain, described as an ache. Symptoms lasted about an hour. He tried taking 1 SL nitro at home but no change in his symptoms. He came to the ER due to his complaints. EKG on arrival demonstrated NSR with T wave inversion in anteroseptal leads, stable finding from past EKG's. HS troponin negative x2. WBC significantly elevated at 37. Urine culture and blood cultures pending. Chest CT again with findings of underlying ground glass densities, emphysema and mediastinal and hilar lymphadenopathy, similar to November 2022 study Cardiology consulted for chest pain. At time of evaluation, patient resting in bed comfortably. at bedside. No recurrent chest pain. He reports chronic cough but feels this has not changed recently. No fever or chills. No worsening SOB. He admits to not being very active at home recently, but denies exertional chest pain, decline in functional capacity or need for frequent SL nitro. No orthopnea, PND or edema. Taking meds as directed at home. BP has been controlled. Allergies Allergy/AdvReac Type Severity Reaction Status Date / Time lisinopril AdvReac Unknown DRY COUGH Verified 12/06/21 06:12 Home Medications Medication Instructions Recorded Confirmed Type atorvastatin 80 mg tablet 80 mg PO DAILY 02/25/24 02/25/24 History ezetimibe 10 mg tablet 10 mg PO DAILY 02/25/24 02/25/24 History levothyroxine 25 mcg tablet 25 mcg PO DAILY 02/25/24 02/25/24 History losartan 25 mg tablet 25 mg PO DAILY 02/25/24 02/25/24 History metoprolol succinate 100 mg 100 mg PO DAILY 02/25/24 02/25/24 History tablet,extended release 24 hr nitroglycerin 0.4 mg sublingual 0.4 mg sublingual USEASDIRECTD PRN 02/25/24 02/25/24 History tablet Chest Pain Patient History Medical History History of skin cancer Hx of colonic polyps Hyperlipidemia Hypertension Osteoarthritis Surgical History H/O cleft lip repair multiple (as a child) H/O hernia repair as a child H/O inguinal hernia repair H/O local excision of skin lesion History of cardiac cath (~2011) [facility] - transferred to [facility] History of colonoscopy History of repair of congenital cleft palate multiple (as a child) History of right cataract surgery Hx of CABG x2 vessels in 2011 at [facility]. follows with Dr. 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 Beliefs That Will Affect Care: None Current Living Situation: Spouse Feels Safe at Home: Yes Assistive Devices: None Review of Systems Review of Systems: All systems reviewed & are unremarkable except as noted in HPI & below Physical Exam Constitutional: WD/WN, vitals as above + obese; no acute distress Neck: + thick neck Respiratory: normal respiratory effort; no labored breathing Auscultation: + diminished lung sounds and + wheezes Cardiovascular: Rate/Rhythm: regular rate and regular rhythm Heart Sounds: no murmur Vessels: no JVD Extremities: no edema Gastrointestinal (Abdomen): normal bowel sounds, soft, nontender, no hepatosplenomegaly Neurologic: PERRL, EOMI, accommodation nl, no face palsy, no dysarthria Psychiatric: A+Ox3, euthymic affect Results & Data Vital Signs (Past 12 Hours) Vital Signs Temp Pulse Pulse Resp BP BP Pulse Ox 02/25/24 11:21 36.7 C 58 L 16 146/77 H 93 02/25/24 09:13 57 L 02/25/24 08:32 36.5 C 61 18 93 02/25/24 06:30 56 L 17 112/63 93 02/25/24 06:15 54 L 15 130/61 93 02/25/24 06:00 57 L 13 112/59 L 91 02/25/24 05:45 56 L 18 100/60 91 02/25/24 05:33 58 L 17 117/60 91 02/25/24 05:30 58 L 17 117/60 93 02/25/24 05:00 57 L 16 93 02/25/24 05:00 118/64 02/25/24 04:55 122/63 02/25/24 04:54 63 20 93 02/25/24 04:51 58 L 17 91 02/25/24 04:45 63 02/25/24 04:43 134/69 02/25/24 04:43 134/69 02/25/24 04:35 36.8 C 62 18 135/62 92 02/25/24 04:32 93 O2 Del Method 02/25/24 11:21 Room Air 02/25/24 09:13 02/25/24 08:32 Room Air 02/25/24 06:30 Room Air 02/25/24 06:15 Room Air 02/25/24 06:00 Room Air 02/25/24 05:45 Room Air 02/25/24 05:33 Room Air 02/25/24 05:30 Room Air 02/25/24 05:00 02/25/24 05:00 02/25/24 04:55 02/25/24 04:54 02/25/24 04:51 02/25/24 04:45 02/25/24 04:43 02/25/24 04:43 02/25/24 04:35 Room Air 02/25/24 04:32 Room Air Laboratory Results Cardiac Enzymes 02/25/24 02/25/24 02/25/24 Range/Units 04:53 05:11 05:54 AST TNP 25 Troponin I High Sens 2.4 (0-20) pg/ml B-Natriuretic Peptide 38 (0-100) pg/ml 02/25/24 Range/Units 09:06 AST Troponin I High Sens 2.9 (0-20) pg/ml B-Natriuretic Peptide (0-100) pg/ml Coagulation 02/25/24 02/25/24 Range/Units 04:53 05:11 PT 11.0 (9.0-12.0) Seconds B-Natriuretic Peptide 38 (0-100) pg/ml CBC 02/25/24 Range/Units 04:53 WBC 37.22 H* (4.8-10.8) K/ul RBC 5.78 (4.70-6.10) M/uL Hgb 16.5 (14.0-18.0) g/dl Hct 50.0 (42.0-52.0) % Plt Count 146 (130-400) K/uL Neut # (Auto) 8.80 H (1.40-6.50) K/uL Lymph # (Auto) 26.69 H (1.20-3.40) K/uL Kern # (Auto) 0.94 H (0.11-0.59) K/uL Eos # (Auto) 0.55 H (0.00-0.50) K/uL Baso # (Auto) 0.12 (0.00-0.20) K/uL Comprehensive Metabolic Panel 02/25/24 02/25/24 Range/Units 04:53 05:54 Sodium TNP 136 Potassium TNP 5.0 Chloride 105 (98-107) mmol/L Carbon Dioxide 23 (21-32) mmol/L BUN 16 (6-23) mg/dl Creatinine 1.07 (0.6-1.4) mg/dl Glucose 113 H (70-99(Fasting)) mg/dl Calcium 8.8 (8.6-10.3) mg/dl AST TNP 25 ALT 50 (7-52) U/L Alkaline Phosphatase 87 (34-104) U/L Total Protein 6.6 (6.0-8.3) gm/dl Albumin 4.3 (3.4-5.0) gm/dl Intake and Output 02/24/24 02/25/24 02/25/24 22:59 06:59 14:59 Intake Total 100 / 100 Balance 100 / 100 Intake: IV 100 / 100 Acetaminophen 1,000 mg In 100 100 / 100 ml @ 400 mls/hr IV NOW STA Rx#: [id number] Other: Weight 88.6 kg Weight Measurement Method Chair Scale Diagnostic Findings Telemetry reviewed: Sinus bradycardia and sinus rhythm with HR ranging 50-80 bmp EKG reviewed from admission: Normal sinus rhythm Low voltage QRS T wave inversion in anteroseptal leads, stable finding from past EKG's Chest xray reviewed: IMPRESSION: 1. Mild patchy right greater than left bibasilar opacities are suspicious for an infectious or inflammatory pneumonitis. 2. Cardiomegaly without overt pulmonary edema. 3. Emphysema. Chest CTA reviewed: IMPRESSION: 1. No pulmonary emboli identified. 2. Emphysema with suggestion of bronchitis. Tracheobronchial secretions with right lower lobe mucous plugging. 3. Right greater than left patchy bibasilar ground glass densities may represent atelectasis versus a mild pneumonitis. Correlate clinically to exclude aspiration. 4. No lobar airspace consolidation. 5. Stable mediastinal and hilar lymphadenopathy. Echo report reviewed dated November 2022: Normal LV size and function Normal wall motion LVEF 55-60% Grade I diastolic dysfunction No significant valvular pathology Medications Administered Current Inpatient Medications Acetaminophen (Acetaminophen 325 Mg Tab) 650 mg PO Q4H PRN PRN Reason: Pain or Fever Stop: 03/26/24 08:30 Atorvastatin Calcium (Atorvastatin 40 Mg Tab) 80 mg PO DAILY [facility] Stop: 03/26/24 08:59 Last Admin: 02/25/24 12:21 Dose: 80 mg Ezetimibe (Ezetimibe 10 Mg Tab) 10 mg PO DAILY [facility] Stop: 03/26/24 08:59 Last Admin: 02/25/24 12:22 Dose: 10 mg Ceftriaxone Sodium (Rocephin) 2,000 mg in 50 mls @ 100 mls/hr IV Q24H [facility] Stop: 03/03/24 08:59 Last Admin: 02/25/24 12:14 Dose: 100 mls/hr Doxycycline Hyclate 100 mg/ (Dextrose) 100 mls @ 50 mls/hr IV Q12H [facility] Stop: 03/03/24 08:59 Levothyroxine Sodium (Levothyroxine Sodium 25 Mcg Tablet) 25 mcg PO DAILYBB [facility] Stop: 03/26/24 06:29 Last Admin: 02/25/24 09:41 Dose: Not Given Losartan Potassium (Losartan Potassium 25 Mg Tab) 25 mg PO DAILY [facility] Stop: 03/26/24 08:59 Last Admin: 02/25/24 12:22 Dose: 25 mg Metoprolol Succinate (Metoprolol Succ 50mg Ext Rel Tab) 100 mg PO DAILY [facility] Stop: 03/26/24 08:59 Last Admin: 02/25/24 12:21 Dose: 100 mg Nitroglycerin (Nitroglycerin Sl 0.4 Mg/Tab Tab) 0.4 mg SL Q5M PRN PRN Reason: Chest Pain Stop: 03/26/24 08:30 Polyethylene Glycol (Polyethylene (Miralax) 17 Gm Pack) 17 gm PO DAILY PRN PRN Reason: Constipation Stop: 03/26/24 08:30
--- NOTE | 2024-02-25 17:53 | Oncology Consultation ---
Date of Consultation February 25, 2024 Assessment & Plan (1) Lymphocytosis: I had a very lengthy discussion with the patient and his . The patient predominantly has lymphocytosis as leukocytosis, he also has stable lymphadenopathy. My concern is of underlying lymphoproliferative disorder such as CLL. 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 Explained to the patient that generally these patients can be monitored. However I will need more testing including flow cytometry, CLL FISH panel and possibly a bone marrow biopsy which can be obtained on an outpatient basis. Plan Hematology will continue to follow the patient make appropriate recommendations. Thank you for this interesting urological consult. A total of 60 minutes was spent in counseling, coordination of care, review of prior records. History of Present Illness Reason for Consultation: Leukocytosis/lymphocytosis lymphadenopathy Attending Physician: Cory David MD History of Present Illness the patient is a very pleasant 73-year-old male with a past medical history of dyslipidemia, hypothyroidism, bronchitis, sleep apnea, CAD, hypertension, CKD who came to [facility] because of chest pain. on admission he was noted to have leukocytosis with a WBC count of 37,000/mcL, absolute lymphocyte count of 26,000/mcL. Subsequently he had a CT angiogram of the chest which revealed mediastinal and hilar lymphadenopathy. Hematology has been consulted to assist in management of this patient with lymphocytosis as well as mediastinal lymphadenopathy. Allergies Allergy/AdvReac Type Severity Reaction Status Date / Time lisinopril AdvReac Unknown DRY COUGH Verified 12/06/21 06:12 Home Medications Medication Instructions Recorded Confirmed Type atorvastatin 80 mg tablet 80 mg PO DAILY 02/25/24 02/25/24 History ezetimibe 10 mg tablet 10 mg PO DAILY 02/25/24 02/25/24 History levothyroxine 25 mcg tablet 25 mcg PO DAILY 02/25/24 02/25/24 History losartan 25 mg tablet 25 mg PO DAILY 02/25/24 02/25/24 History metoprolol succinate 100 mg 100 mg PO DAILY 02/25/24 02/25/24 History tablet,extended release 24 hr nitroglycerin 0.4 mg sublingual 0.4 mg sublingual USEASDIRECTD PRN 02/25/24 02/25/24 History tablet Chest Pain aspirin 81 mg tablet,delayed 81 mg PO QAM 30 days #30 tabs 07/24/24 Rx release cefdinir 300 mg capsule 300 mg PO BID 5 days #10 caps 02/26/24 Rx doxycycline hyclate 100 mg capsule 100 mg PO BID 5 days #10 caps 02/26/24 Rx guaifenesin 600 mg tablet, 600 mg PO BID 7 days #14 tabs 02/26/24 Rx extended release 12 hr (Mucinex) Patient History Medical History History of skin cancer Hx of colonic polyps Hyperlipidemia Hypertension Osteoarthritis Surgical History H/O cleft lip repair multiple (as a child) H/O hernia repair as a child H/O inguinal hernia repair H/O local excision of skin lesion History of cardiac cath (~2011) [facility] - transferred to [facility] History of colonoscopy History of repair of congenital cleft palate multiple (as a child) History of right cataract surgery Hx of CABG x2 vessels in 2011 at [facility]. follows with Dr. Brambila (annually) Family History Other No family history of adverse response to anesthesia Social History Smoking Status: Former smoker Second Hand Exposure: No; Do You Dip or Chew Tobacco: No; Tobacco Cessation Education Requested by Patient: No Hx Alcohol Use: No Hx Substance Use: No Preferred Language: Venezuelan Communication Ability: Effective Inspector Rag Sorting Required: No Beliefs That Will Affect Care: None Current Living Situation: Spouse Other Information That Helps Us Care for You: No Feels Safe at Home: Yes Safety Concerns: Feels Safe At This Time Assistive Devices: None Review of Systems Review of Systems: All systems reviewed & are unremarkable except as noted in HPI & below Chest pain Constitutional: as per Subjective / HPI Eyes: as per Subjective / HPI Ear, Nose, Mouth, Throat: as per Subjective / HPI Respiratory: as per Subjective / HPI Cardiovascular: as per Subjective / HPI Gastrointestinal: as per Subjective / HPI Genitourinary: + as per Subjective / HPI Musculoskeletal: as per Subjective / HPI Integumentary: as per Subjective / HPI Neurologic: as per Subjective / HPI Psychiatric: as per Subjective / HPI Endocrine: as per Subjective / HPI Hematologic / Lymphatic: as per Subjective / HPI Allergy / Immunological: as per Subjective / HPI Physical Exam Constitutional: WD/WN, vitals as above Eyes: PERRL, conjunctivae normal, anicteric sclerae ENMT: external ear and nose normal, oropharynx normal Neck: trachea midline, no thyromegaly Respiratory: normal respiratory effort, lungs clear to auscultation Cardiovascular: RRR, no murmur, no edema Gastrointestinal (Abdomen): normal bowel sounds, soft, nontender, no hepatosplenomegaly Musculoskeletal: no cyanosis or clubbing, extremities motor strength 5/5 Skin: no rashes, warm and dry Neurologic: patellar DTR's 2+ bilat, sensation intact Psychiatric: A+Ox3, euthymic affect Genitourinary: no testicular masses, no penis abnormality Results & Data Vital Signs (Past 12 Hours) Vital Signs Temp Pulse Pulse Resp BP BP Pulse Ox 02/25/24 16:42 63 02/25/24 15:19 36.7 C 63 16 124/69 91 02/25/24 11:21 36.7 C 58 L 16 146/77 H 93 02/25/24 09:13 57 L 02/25/24 08:32 36.5 C 61 18 93 02/25/24 06:30 56 L 17 112/63 93 02/25/24 06:15 54 L 15 130/61 93 02/25/24 06:00 57 L 13 112/59 L 91 O2 Del Method 02/25/24 16:42 02/25/24 15:19 Room Air 02/25/24 11:21 Room Air 02/25/24 09:13 02/25/24 08:32 Room Air 02/25/24 06:30 Room Air 02/25/24 06:15 Room Air 02/25/24 06:00 Room Air
[2024-02-25] MEDS: ASPIRIN 81 MG ECTAB PO SCH (18:44)
[2024-02-26 06:23] LABS: BUN Creatinine Ratio 14.9 (10-20); Calcium 9.1 mg/dl (8.6-10.3); Est GFR (African American) 67.9 ml/min; Est GFR (Non-African American) 58.6 ml/min; Magnesium 2.2 mg/dl (1.7-2.4); Potassium 4.5 mmol/L (3.5-5.1)
[2024-02-26 06:40] LABS: Hematocrit (blood only) 48.6 % (42.0-52.0); Hemoglobin 15.9 g/dl (14.0-18.0); Mean Corpuscular Hemoglobin 28.2 pg (25.0-34.0); Mean Corpuscular Hgb Conc 32.7 g/dL (32.0-36.0); Mean Corpuscular Volume 86.3 fL (80.0-100.0); Mean Platelet Volume 10.7 fL (9.4-12.4); Nucleated RBC # (auto) 0.04 K/uL (0.00-0.12); Nucleated RBC % (auto) 0.1 %; Platelet Count 122 K/uL (130-400); RDW Coefficient of Variation 14.3 % (11.5-14.5); RDW Standard Deviation 45.1 fL (36.4-46.3); Red Blood Count 5.63 M/uL (4.70-6.10); White Blood Count 27.63 K/ul (4.8-10.8)
[2024-02-26 07:04] LABS: Basophils # (auto) 0.09 K/uL (0.00-0.20); Basophils % (auto) 0.3 %; Eosinophils # (auto) 0.48 K/uL (0.00-0.50); Eosinophils % (auto) 1.7 %; Immature Granulocytes # (auto) 0.07 K/uL (0.01-0.20); Immature Granulocytes % (auto) 0.3 %; Lymphocytes # (auto) 20.87 K/uL (1.20-3.40); Lymphocytes % (auto) 75.5 %; Monocytes # (auto) 0.76 K/uL (0.11-0.59); Monocytes % (auto) 2.8 %; Neutrophils # (auto) 5.36 K/uL (1.40-6.50); Neutrophils % (auto) 19.4 %; Smudge Cells Present
--- NOTE | 2024-02-26 13:33 | Cardiology Progress Note ---
Date of Service February 26, 2024 Assessment & Plan (1) Chest pain: (2) Leukocytosis: (3) Abnormal chest CT: Plan 02/25/24: Patient admitted for atypical chest pain. history of CAD s/p remote CABG in 2011. Chest pain not aided by nitro on arrival to ER. HS troponin negative x2. No acute/ischemic EKG changes. Chronic T wave inversion noted in anteroseptal leads. Currently chest pain free. Echocardiogram is pending. Would continue ASA, statin/zetia, losartan, metoprolol. Likely non cardiac chest pain. He has an abnormal chest CT, similar to November 2022 evaluation. No formal pulm work up. Now has WBC at 37. Would recommend hematology and pulmonary evaluation prior to discharge. 02/26/24: Patient without recurrent chest pain. Echo with normal LVEF, no wall motion abnormalities. WBC remains elevated but trending downward. continue antibiotics per hospitalist for possible pneumonitis. Consider pulm evaluation given abnormal chest CT, chronic cough. Hematology evaluation pending given abnormal WBC. Blood cultures pending At this time, no further cardiac testing is warranted. Continue home cardiac medications. Will sign off. 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 Case discussed with Dr. Bear I spent a total of 30 minutes on the date of service in preparation, delivery, and documentation of the care provided to this patient, excluding any time spent in the performance of separately billed services. Shavon Hawkins PA-C Department of Cardiology, [facility] This chart was completed in part utilizing Speech Voice Recognition Software. Grammatical errors, random word insertions, pronoun errors, and incomplete sentences are an occasional consequence of this system due to software limitations, ambient noise, and hardware issues. Any formal questions or concerns about the content, text, or information contained within the body of this dictation should be directly addressed to the provider for clarification. Admission and Anticipated Discharge Date Admission Date: February 25, 2024 Supervising Physician Co-Signing Physician Notes Attending attestation. I have personally performed a history and physical examination on the patient. I have reviewed the advance practitioner's documentation, and I agree with, and take responsibility for the plan of care. 73-year-old male admitted with atypical chest discomfort. No evidence of acute coronary syndrome. High-sensitivity troponin undetectable. 2D echocardiogram demonstrates preserved LV systolic function without regional wall motion abnormality. Continue outpatient cardiac meds as outlined above. No further inpatient cardiac testing or intervention recommended at this time. Thank you for allowing us to participate in the care of your patient. Cardiology will sign off. Please call with additional concerns/questions. I spent a total of 30 minutes on the date of service in preparation, delivery, and documentation of the care provided to this patient, excluding any time spent in the performance of separately billed services. Agus Bear DO, [facility] Subjective Patient resting in chair. Feeling well. Denies acute cardiac complaints. No recurrent chest pain or dyspnea. Stable cough. No fever or chills. No orthopnea, PND or edema. Review of Systems Review of Systems: All systems reviewed & are unremarkable except as noted in HPI & below Physical Exam Constitutional: WD/WN, vitals as above + obese; no acute distress Neck: + thick neck Respiratory: normal respiratory effort; no labored breathing Auscultation: + diminished lung sounds; no crackles and no wheezes Cardiovascular: Rate/Rhythm: regular rate and regular rhythm Heart Sounds: no murmur Vessels: no JVD Extremities: no edema (Chronic stasis changes noted) Gastrointestinal (Abdomen): normal bowel sounds, soft, nontender, no hepatosplenomegaly Neurologic: PERRL, EOMI, accommodation nl, no face palsy, no dysarthria Psychiatric: A+Ox3, euthymic affect Results & Data Vital Signs (Past 12 Hours) Vital Signs Temp Pulse Pulse Pulse Resp BP BP 02/26/24 11:07 36.3 C L 58 L 18 157/79 H 02/26/24 07:21 59 L 02/26/24 07:10 36.4 C L 58 L 18 147/83 H 02/26/24 03:15 36.7 C 65 18 131/76 Pulse Ox O2 Del Method 02/26/24 11:07 93 Room Air 02/26/24 07:21 02/26/24 07:10 92 Room Air 02/26/24 03:15 93 Room Air Laboratory Results Cardiac Enzymes 02/25/24 02/25/24 Range/Units 14:35 20:08 Troponin I High Sens 2.5 < 2.3 (0-20) pg/ml CBC 02/26/24 Range/Units 05:33 WBC 27.63 H (4.8-10.8) K/ul RBC 5.63 (4.70-6.10) M/uL Hgb 15.9 (14.0-18.0) g/dl Hct 48.6 (42.0-52.0) % Plt Count 122 L (130-400) K/uL Neut # (Auto) 5.36 (1.40-6.50) K/uL Lymph # (Auto) 20.87 H (1.20-3.40) K/uL Grainger # (Auto) 0.76 H (0.11-0.59) K/uL Eos # (Auto) 0.48 (0.00-0.50) K/uL Baso # (Auto) 0.09 (0.00-0.20) K/uL Comprehensive Metabolic Panel 02/26/24 Range/Units 05:33 Sodium 136 (136-145) mmol/L Potassium 4.5 (3.5-5.1) mmol/L Chloride 104 (98-107) mmol/L Carbon Dioxide 26 (21-32) mmol/L BUN 18 (6-23) mg/dl Creatinine 1.21 (0.6-1.4) mg/dl Glucose 117 H (70-99(Fasting)) mg/dl Calcium 9.1 (8.6-10.3) mg/dl Intake and Output 02/25/24 02/26/24 02/26/24 22:59 06:59 14:59 Intake Total 240 / 830 200 / 830 150 / 150 Balance 240 / 830 200 / 830 150 / 150 Intake: IV 100 / 250 150 / 150 Doxycycline Hyclate 100 mg In 100 / 200 100 / 100 Dextrose 5% Mini-B 100 ml @ 50 mls/hr IV Q12H [facility] Rx#:[id number] cefTRIAXone SODIUM 2,000 mg In 50 / 50 50 ml @ 100 mls/hr IV Q24H [facility] Rx#:[id number] Oral 240 / 580 100 / 580 Other: # Unmeasured Voids 2 Weight 88.6 kg 88.9 kg Weight Measurement Method Standing Scale Built in [facility] Diagnostic Findings Telemetry reviewed: Sinus Jake and NSR ranging 50-70's. Echo reviewed from this morning: No significant change from previous Normal LVEF at 55-60% No wall motion abnormalities Mild MR Aortic sclerosis without stenosis Medications Administered Current Inpatient Medications Acetaminophen (Acetaminophen 325 Mg Tab) 650 mg PO Q4H PRN PRN Reason: Pain or Fever Stop: 03/26/24 08:30 Aspirin (Aspirin 81 Mg Ectab) 81 mg PO QAM [facility] Stop: 03/26/24 13:59 Last Admin: 02/26/24 09:03 Dose: 81 mg Atorvastatin Calcium (Atorvastatin 40 Mg Tab) 80 mg PO DAILY [facility] Stop: 03/26/24 08:59 Last Admin: 02/26/24 09:04 Dose: 80 mg Ezetimibe (Ezetimibe 10 Mg Tab) 10 mg PO DAILY [facility] Stop: 03/26/24 08:59 Last Admin: 02/26/24 09:04 Dose: 10 mg Ceftriaxone Sodium (Rocephin) 2,000 mg in 50 mls @ 100 mls/hr IV Q24H [facility] Stop: 03/03/24 08:59 Last Infusion: 02/26/24 09:54 Dose: Infused Doxycycline Hyclate 100 mg/ (Dextrose) 100 mls @ 50 mls/hr IV Q12H [facility] Stop: 03/03/24 08:59 Last Infusion: 02/26/24 12:30 Dose: Infused Levothyroxine Sodium (Levothyroxine Sodium 25 Mcg Tablet) 25 mcg PO DAILYBB [facility] Stop: 03/26/24 06:29 Last Admin: 02/26/24 06:24 Dose: 25 mcg Losartan Potassium (Losartan Potassium 25 Mg Tab) 25 mg PO DAILY [facility] Stop: 03/26/24 08:59 Last Admin: 02/26/24 09:46 Dose: 25 mg Metoprolol Succinate (Metoprolol Succ 50mg Ext Rel Tab) 100 mg PO DAILY [facility] Stop: 03/26/24 08:59 Last Admin: 02/26/24 09:03 Dose: 100 mg Nitroglycerin (Nitroglycerin Sl 0.4 Mg/Tab Tab) 0.4 mg SL Q5M PRN PRN Reason: Chest Pain Stop: 03/26/24 08:30 Polyethylene Glycol (Polyethylene (Miralax) 17 Gm Pack) 17 gm PO DAILY PRN PRN Reason: Constipation Stop: 03/26/24 08:30
--- NOTE | 2024-02-26 15:12 | Hospitalist Progress Note ---
Date of Service February 26, 2024 Assessment & Plan (1) Chest pain: Plan: 73-year-old male with past medical history significant for dyslipidemia, hypothyroidism, post bronchitis tussive syndrome, positional sleep apnea, CAD s/p CABG, hypertension, CKD stage III, comes from home because of chest pain. Around 2 AM he noticed left-sided chest pain 5/10 in severity. No radiation. No nausea. No sweating. No headache. Currently his pain is improving. No cough. No fevers, no abdominal pain. Normal bowel and bladder movements. No swelling of the legs. Currently resting comfortably and hemodynamically stable. Chest pain, Acute coronary syndrome ruled out Troponin negative x 3 EKG no signs of acute ischemia or infarct Echocardiogram: Left ventricular systolic function is normal, EF 55 to 60%, aortic valve sclerosis mild, without significant aortic valvular stenosis Mild mitral regurgitation Evaluated by cardiology service Aspirin 81 mg p.o. daily started No further cardiac testing at this point CT chest angio: Negative for acute pulmonary embolism Chest pain resolved Possible pleurisy related to his pneumonia Management of pneumonia per below Lymphocytosis with hepatosplenomegaly Peripheral smear: #1. An atypical lymphocytosis highly suspicious for chronic lymphocytic leukemia is seen. #2. Very rare nucleated red blood cells are noted. #3. Blasts, schistocytes and spherocytes are all not seen. #4. Please note that residual blood from the lavender top tube will be submitted for flow cytometric analysis and the flow report will serve as an addendum to this case. Evaluated by hematology service, Dr. Filiberto Cazares Recommend outpatient follow-up with him in 1 to 2 weeks Patient and his strongly advised to make an appointment 1 to 2 weeks for close follow-up regarding this finding Bilateral lower lobe pneumonia CT chest: 1. No pulmonary emboli identified. 2. Emphysema with suggestion of bronchitis. Tracheobronchial secretions with right lower lobe mucous plugging. 3. Right greater than left patchy bibasilar ground glass densities may represent atelectasis versus a mild pneumonitis. Correlate clinically to exclude aspiration. 4. No lobar airspace consolidation. 5. Stable mediastinal and hilar lymphadenopathy. Started on ceftriaxone and doxycycline Respiratory status stable Continue with oral cefdinir twice a day and doxycycline twice daily x 5 more days to complete 7-day course Mucinex twice daily x 1 week Probiotics daily Use incentive spirometry and flutter valve as well Repeat chest imaging in 4 weeks to ensure resolution of above Mild hepatosplenomegaly with hepatic steatosis From underlying CLL? 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 Filiberto Cazares in 1 to 2 weeks Please refer to GI for hepatosplenomegaly with hepatic steatosis Admission and Anticipated Discharge Date Admission Date: February 25, 2024 Subjective Follow-up for chest pain, pneumonia, lymphocytosis, etc. Seen resting in bed, sitting up, comfortable, in good spirits States he feels much better overall Chest pain resolved Denies shortness of breath, cough, sputum production, fevers or chills Ambulated twice in the hallways with no issues States he feels good, no other new symptoms States he would like to be discharged home today Review of Systems Review of Systems: all noted and negative except for above Physical Exam Physical Exam: General- oriented x 3, not in distress, speaks in sentences with no effort or accessory muscle use Eyes- anicteric Neck- no JVD Lungs- Mild crackles on the right base, clear on the left No wheezing Good air entry bilaterally Heart- normal rate, regular rhythm; no murmurs Abdomen- normal bowel sounds, nondistended, soft, nontender Extremities- no pretibial edema, no calf tenderness Neuro- alert, oriented x 3; no gross focal neurologic deficits Skin- warm & dry Results & Data Results & Data Vital Signs (Past 12 Hours) Vital Signs Temp Pulse Pulse Pulse Resp BP BP 02/26/24 15:01 58 L 02/26/24 11:07 36.3 C L 58 L 18 157/79 H 02/26/24 07:21 59 L 02/26/24 07:10 36.4 C L 58 L 18 147/83 H 02/26/24 03:15 36.7 C 65 18 131/76 Pulse Ox O2 Del Method 02/26/24 15:01 02/26/24 11:07 93 Room Air 02/26/24 07:21 02/26/24 07:10 92 Room Air 02/26/24 03:15 93 Room Air all noted and reviewed including below
--- NOTE | 2024-02-26 15:48 | Discharge Summary ---
Discharge Summary Date of Service February 26, 2024 Principal Dx & Hospital Course #1 = Principal Diagnosis (1) Chest pain: 73-year-old male with past medical history significant for dyslipidemia, hypothyroidism, post bronchitis tussive syndrome, positional sleep apnea, CAD s/p CABG, hypertension, CKD stage III, comes from home because of chest pain. Around 2 AM he noticed left-sided chest pain 5/10 in severity. No radiation. No nausea. No sweating. No headache. Currently his pain is improving. No cough. No fevers, no abdominal pain. Normal bowel and bladder movements. No swelling of the legs. Currently resting comfortably and hemodynamically stable. Chest pain, Acute coronary syndrome ruled out Troponin negative x 3 EKG no signs of acute ischemia or infarct Echocardiogram: Left ventricular systolic function is normal, EF 55 to 60%, aortic valve sclerosis mild, without significant aortic valvular stenosis Mild mitral regurgitation Evaluated by cardiology service Aspirin 81 mg p.o. daily started No further cardiac testing at this point CT chest angio: Negative for acute pulmonary embolism Chest pain resolved Possible pleurisy related to his pneumonia Management of pneumonia per below Lymphocytosis with hepatosplenomegaly Peripheral smear: #1. An atypical lymphocytosis highly suspicious for chronic lymphocytic leukemia is seen. #2. Very rare nucleated red blood cells are noted. #3. Blasts, schistocytes and spherocytes are all not seen. #4. Please note that residual blood from the lavender top tube will be submitted for flow cytometric analysis and the flow report will serve as an addendum to this case. Evaluated by hematology service, Dr. Filiberto Cazares Recommend outpatient follow-up with him in 1 to 2 weeks Patient and his strongly advised to make an appointment 1 to 2 weeks for close follow-up regarding this finding Bilateral lower lobe pneumonia CT chest: 1. No pulmonary emboli identified. 2. Emphysema with suggestion of bronchitis. Tracheobronchial secretions with right lower lobe mucous plugging. 3. Right greater than left patchy bibasilar ground glass densities may represent atelectasis versus a mild pneumonitis. Correlate clinically to exclude aspiration. 4. No lobar airspace consolidation. 5. Stable mediastinal and hilar lymphadenopathy. Started on ceftriaxone and doxycycline Respiratory status stable Continue with oral cefdinir twice a day and doxycycline twice daily x 5 more days to complete 7-day course Mucinex twice daily x 1 week Probiotics daily Use incentive spirometry and flutter valve as well Repeat chest imaging in 4 weeks to ensure resolution of above Mild hepatosplenomegaly with hepatic steatosis From underlying CLL? 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 Filiberto Cazares in 1 to 2 weeks Please refer to GI for hepatosplenomegaly with hepatic steatosis Notes For Next Care Provider Medication Changes From Visit Cefdinir, Doxycycline- antibiotic for pneumonia Mucinex- expectorant, to loosen mucus in the airways Aspirin- for coronary artery disease, always take with a full stomach Please take a probiotic daily x 2 weeks at least. RenewLlife brand recommended. Admission HPI Per Admitting Provider 73-year-old male with past medical history significant for dyslipidemia, hypothyroidism, post bronchitis tussive syndrome, positional sleep apnea, CAD s/p CABG, hypertension, CKD stage III, comes from home because of chest pain. Around 2 AM he noticed left-sided chest pain 5/10 in severity. No radiation. No nausea. No sweating. No headache. Currently his pain is improving. No cough. No fevers, no abdominal pain. Normal bowel and bladder movements. No swelling of the legs. Currently resting comfortably and hemodynamically stable. Past medical history. As mentioned above. Past surgical history. CABG. Colonoscopy with biopsy. Repair of inguinal hernia. Revision of nose for cleft palate. Social history. . Quit smoking 2-3. Smoked 1.5 packs a day for 30 years. 10 standard drinks of alcohol per week. No drug use. Family history. Brother had angioplasty at age of 43. Father had heart failure, hypertension, CAD. Discharge Exam General- oriented x 3, not in distress, speaks in sentences with no effort or accessory muscle use Eyes- anicteric Neck- no JVD Lungs- Mild crackles on the right base, clear on the left No wheezing Good air entry bilaterally Heart- normal rate, regular rhythm; no murmurs Abdomen- normal bowel sounds, nondistended, soft, nontender Extremities- no pretibial edema, no calf tenderness Neuro- alert, oriented x 3; no gross focal neurologic deficits Skin- warm & dry Updated Medication List Medication Instructions Recorded Confirmed Type atorvastatin 80 mg tablet 80 mg PO DAILY 02/25/24 02/25/24 History ezetimibe 10 mg tablet 10 mg PO DAILY 02/25/24 02/25/24 History levothyroxine 25 mcg tablet 25 mcg PO DAILY 02/25/24 02/25/24 History losartan 25 mg tablet 25 mg PO DAILY 02/25/24 02/25/24 History metoprolol succinate 100 mg 100 mg PO DAILY 02/25/24 02/25/24 History tablet,extended release 24 hr nitroglycerin 0.4 mg sublingual 0.4 mg sublingual USEASDIRECTD PRN 02/25/24 02/25/24 History tablet Chest Pain aspirin 81 mg tablet,delayed 81 mg PO QAM 30 days #30 tabs 02/26/24 Rx release cefdinir 300 mg capsule 300 mg PO BID 5 days #10 caps 02/26/24 Rx doxycycline hyclate 100 mg capsule 100 mg PO BID 5 days #10 caps 02/26/24 Rx guaifenesin 600 mg tablet, 600 mg PO BID 7 days #14 tabs 02/26/24 Rx extended release 12 hr (Mucinex) Hospital Stay Data Consultations 02/25/24 06:27 ED Decision to Admit Stat 02/25/24 07:53 Consult Hematology Routine 02/25/24 08:31 Consult Cardiology Routine Diagnostic Imagining Performed 02/25/24 07:18 CT angio chest PE protocol Urgent COMPARISON: 11/06/2022 FINDINGS: CTA: Moderate cardiomegaly. No pericardial effusion. Prior median sternotomy with CABG. Extensive calcifications of the coronary arteries. Atherosclerosis of the aorta without aneurysm. There is patency of the imaged great vessels. No pulmonary emboli are identified. CT CHEST: Unremarkable thyroid. Mediastinal and hilar lymphadenopathy redemonstrated with subcarinal lymph nodes measuring up to 3.2 x 1.7 cm on image 110 series 4. Findings are similar to prior. No pneumothorax or pleural effusion. Mild pulmonary emphysema with bronchial wall thickening. Mild intralobular septal thickening. Mild patchy right greater than left bibasilar groundglass densities. There are no suspicious pulmonary nodules or masses identified. Stable 8 mm fissural nodule of the right middle lobe on image 99 suggestive of a benign lymph node. Mild hepatosplenomegaly with hepatic steatosis. The imaged spleen measures up to 13.3 cm. Unremarkable soft tissues. No acute fracture. Chronic deformity of the right anterolateral fifth rib. IMPRESSION: 1. No pulmonary emboli identified. 2. Emphysema with suggestion of bronchitis. Tracheobronchial secretions with right lower lobe mucous plugging. 3. Right greater than left patchy bibasilar ground glass densities may represent atelectasis versus a mild pneumonitis. Correlate clinically to exclude aspiration. 4. No lobar airspace consolidation. 5. Stable mediastinal and hilar lymphadenopathy. ACT 112: Negative or not required by law. The above report was generated using voice recognition software. It may contain grammatical, syntax or spelling errors. Electronically signed by: Lisandro Graham M.D. 02/25/2024 8:34 AM Pending Results Patient Have Any Pending Studies at Discharge: Yes Discharge Instructions Given to Patient (Per Discharging Provider) PLEASE REFER TO YOUR NEW MEDICATION LIST AND FOLLOW INSTRUCTIONS CAREFULLY. YOUR NEW MEDICATIONS INCLUDE: Cefdinir, Doxycycline- antibiotic for pneumonia Mucinex- expectorant, to loosen mucus in the airways Aspirin- for coronary artery disease, always take with a full stomach Please take a probiotic daily x 2 weeks at least. RenewLlife brand recommended. Please continue using incentive spirometry every 2-4 hours and flutter valve, 4 times a day for at least 1 week. PLEASE CALL YOUR PRIMARY CARE PHYSICIAN OR RETURN TO THE ER IF WITH WORSENING OF SYMPTOMS, INCLUDING Chest pain, shortness of breath, cough, fevers or chills, sputum production, diarrhea, etc. FOLLOW UP WITH PRIMARY CARE PHYSICIAN OUTLINED ABOVE. Follow-up with Dr. Filiberto Cazares in 1 to 2 weeks. Please call his office to schedule an appointment. Contact information outlined above. Total Time Total Time Spent Total Time Spent (In Minutes): 45 minutes
--- NOTE | 2024-02-26 20:06 | Electrocardiogram Report ---
Test Reason : Blood Pressure : / mmHG Vent. Rate : 057 BPM Atrial Rate : 057 BPM P-R Int : 216 ms QRS Dur : 084 ms QT Int : 444 ms P-R-T Axes : 040 017 039 degrees QTc Int : 432 ms Sinus bradycardia with 1st degree A-V block Possible Inferior infarct (cited on or before 26-FEB-2024) Abnormal ECG When compared with ECG of 25-FEB-2024 04:42, No significant change was found Confirmed by Alfredo Gonzales ([id number]) on 02/26/2024 8:05:53 PM Referred By: REFERRED SELF Confirmed By:Alfredo Gonzales
== END 2024-02-26 16:41 | disposition home or self-care (01) | DRG 195 ==
LOC: ED 04:32 → 2W 07:02 → SUATTDRO 07:02 → 2W 07:55